=== PATIENT | male | born 1940 | race Caucasian/White ===

== ENCOUNTER 2019-12-13 08:57 | Outpatient (CLI) | payer MEDICARE, OTHER, SELFPAY ==
--- NOTE | 2019-12-13 09:05 | MM_ITS ---
WS: [id number] DIAGNOSTIC BILATERAL DIGITAL MAMMOGRAM WITH CAD LEFT breast ultrasound HISTORY: LT BREAST MASS, 79-year-old male. COMPARISON: None available. TECHNIQUE: Bilateral craniocaudad, mediolateral oblique, and mediolateral views are submitted. Spot c ompression LEFT MLO. Computer aided detection utilized. Breast composition: The breasts are almost entirely fatty. Increased soft tissue posterior to the LEF T nipple. Area of increased density posterior to the nipple measures 2.3 x 2.0 cm. LEFT breast ultrasound, limited. Hypoechoic mass with minimal peripheral increased vascularity in the LEFT subareolar corresponds to t he mammographic and palpable abnormality. Mass measures 2.6 x 1.0 x 2.4 cm. Most typical for gynecoma stia. There is an additional small lipoma in the LEFT axilla but no adenopathy. The RIGHT subareolar region is imaged for comparison and there is probably minimal gynecomastia on the RIGHT also. MM/[place] [id number] IMPRESSION: BI-RADS: 2-Benign FOLLOW UP: See Report Findings most consistent with gynecomastia.
== END 2019-12-13 08:58 | disposition home or self-care (01) ==
PROVIDERS: PCP Family Medicine; Visit Provider Nurse Practitioner
DX: N63.42 Unspecified lump in left breast, subareolar (principal); N62 Hypertrophy of breast
CPT/HCPCS: 76642; 77066

== ENCOUNTER 2019-12-21 15:33 | Outpatient (CLI) | payer MEDICARE, OTHER, SELFPAY ==
--- NOTE | 2019-12-21 15:39 | CT_ITS ---
WS: [id number] CT LUMBAR SPINE TECHNIQUE: Noncontrast CT of the lumbar spine with coronal and sagittal reformatted images. CLINICAL INFORMATION: POSTLAMINECTOMY SYNDROME COMPARISON: CT 5 23,018 and 4 29,017 DLP: 1897.[address] scans at [facility] use at least one of these dose optimization techniques: automat ed exposure control; mA and/or kV adjustment per patient size (includes targeted exams where dose is matched to clinical indication); or iterative reconstruction. FINDINGS: Moderate spondylitic changes lumbar spine. Mild lumbar curve. Disc space narrowing worse at L2-3 and L5-S1. Vacuum disc phenomenon at T12-L1, L1-L2, L2-L3, L4-L5, and L5-S1. Disc space narrowing has pro gressed at L4-L5 since the prior examination. Pedicle screw fixation L3-4. Pedicle screws appear inta ct with interconnecting rods. No evidence of hardware loosening. Alignment overall is unchanged since 2018 L1-L2: Mild disc bulging with osteophytic ridging. Mild central canal stenosis. Mild facet arthropath y. Foramen are patent. L2-L3: Mild disc bulging with osteophytic ridging. Mild to moderate central canal stenosis. Narrowing of the subarticular recess bilaterally. Moderate facet arthropathy. Mild left and no significant rig ht foraminal narrowing. L3-L4: Mild disc bulging. Spinal canal and foramen are patent. Dorsolateral bony fusion with pedicle screw fixation. L4-L5: Mild disc bulging with peripheral calcification. Right foraminal disc osteophyte protrusion wi th moderate right foraminal narrowing. Impingement on the exiting right L4 nerve root. Moderate facet arthropathy. Mild central canal stenosis. Pedicle screw fixation. L5-S1: Slight retrolisthesis L5 on S1. Mild disc bulging with osteophytic ridging. Mild right and no significant left foraminal narrowing. Narrowing of the subarticular recess bilaterally CT/CT lumbar spine wo con* [id number] IMPRESSION: 1. Moderate spondylitic changes with multilevel disc space narrowing slightly progressed since 2018 2. Pedicle screw fixation L3-4 with dorsolateral bony fusion appears stable. N o evidence of hardware loosening. 3. Mild central canal stenosis L1-2, L2-3, and L4-5 unchanged. Multilevel suba rticular recess narrowing. 4. Right foraminal disc osteophyte protrusion L4-5 has progressed from previou s. Impingement on the exiting right L4 nerve root. Recommend correlation for RI GHT L4 NERVE ROOT SYMPTOMS. 5. Otherwise multilevel mild to moderate bony foraminal narrowing is stable. 6. Moderate facet arthropathy L4-L5 and L5-S1
--- NOTE | 2019-12-21 15:40 | XR_ITS ---
WS: [id number] LUMBAR SPINE FLEXION AND EXTENSION TECHNIQUE: 3 views of the lumbar spine: Lateral neutral, flexion, and extension views. CLINICAL INFORMATION: POSTLAMINECTOMY SYNDROME COMPARISON: FINDINGS: Pedicle screw fixation L3-4 appears unchanged from previous. Trace retrolisthesis L2 on L3. No instab ility on flexion-extension. Chronic compression anterior wedging lower thoracic spine T11-T12 appear unchanged. XR/XR lumbar spine f/e only [id number] IMPRESSION: No instability on flexion-extension
== END 2019-12-21 15:34 | disposition home or self-care (01) ==
LOC: RADWPI 15:38
PROVIDERS: Family Provider Family Medicine; PCP Family Medicine; Visit Provider Anesthesiology Pain Medicine
DX: M96.1 Postlaminectomy syndrome, not elsewhere classified (principal); M47.816 Spondylosis without myelopathy or radiculopathy, lumbar region; M25.78 Osteophyte, vertebrae; M48.061 Spinal stenosis, lumbar region without neurogenic claudication
CPT/HCPCS: 72120; 72131

== ENCOUNTER → 2020-08-08 16:00 | Outpatient (BNVA) | payer MEDICARE, OTHER, SELFPAY | PROVIDERS: Family Provider Family Medicine; PCP Family Medicine; Referring Provider Internal Medicine Cardiovascular Disease; Visit Provider Internal Medicine Cardiovascular Disease | DX: I50.32 Chronic diastolic (congestive) heart failure (principal) | CPT/HCPCS: 80048; 85025 ==

== ENCOUNTER 2020-10-20 12:47 | Outpatient (CLI) | payer MEDICARE, OTHER, SELFPAY ==
--- NOTE | 2020-10-20 13:00 | CT_ITS ---
WS: [id number] CT of the lumbar spine, additional two-dimensional coronal and sagittal imaging was obtained. 1 Clinical Data: POSTLAMINECTOMY SYNDROME, NOT ELSEWHERE CLASSIFIED Comparison: CT lumbar spine, 12/21/2019. DLP: 1897.[address] scans at [facility] use at least one of these dose optimization techniques: automat ed exposure control; mA and/or kV adjustment per patient size (includes targeted exams where dose is matched to clinical indication); or iterative reconstruction. Findings: Osteoarthritic changes of the lumbar vertebral bodies remains the same. There is degenerati ve disc narrowing at all levels from T11-T12 through L5-S1 except for L3-L4. Posterior lumbar fusion at L3-L4 with bilateral pedicle screws and connecting rods remain stable. No compression fractures ar e seen. There is diffuse osteoporosis. There is a slight dextroscoliosis. The transverse processes an d SI joints are not remarkable. T12-L1: There is minimal disc osteophyte bulging with mild bilateral foraminal stenosis. L1-L2: There is minimal disc osteophyte bulging with facet joint arthritis causing canal and foramina l stenosis. L2-L3: There is disc and osteophyte bulging with facet joint arthritis causing canal and foraminal st enosis. L3-L4: There is minimal disc bulging but no canal stenosis or foraminal stenosis. L4-L5: There is minimal disc and osteophyte bulging with facet joint arthritis causing canal and fora azul stenosis. L5-S1: There is disc and osteophyte bulging with facet joint arthritis causing canal and foraminal st enosis. CT/CT lumbar spine wo con* [id number] Impression: 1. Multilevel degenerative disc disease, osteophytes and osteoporosis. 2. Posterior lumbar fusion at L3-L4 stable. 3. Multilevel disc osteophyte bulging along with facet joint arthritis causing canal and foraminal stenosis.
--- NOTE | 2020-10-20 13:00 | XR_ITS ---
WS: [id number] Lumbar spine with flexion, extension, and neutral lateral, 10/20/2020 Clinical Data: POSTLAMINECTOMY SYNDROME, NOT ELSEWHERE CLASSIFIED Comparison: Lateral lumbar spine, 12/21/2019. Findings: The posterior lumbar fusion at L3-L4 remains intact. There is a 0.3 cm retrolisthesis of L2 on L3 unc hanged. There is degenerative disc narrowing from L1-L2 through L5-S1. There is anterior osteoarthrit ic spurring and osteoporosis of all lumbar vertebral bodies. There is wedge compression at T11 and T1 2 unchanged. On flexion and extension there is no change in the subluxation and posterior lumbar fusi on remains stable. XR/XR lumbar spine f/e only [id number] Impression: 1. Stable L3-L4 posterior lumbar fusion. 2. No change in the subluxation on flexion or extension.
== END 2020-10-20 12:48 | disposition home or self-care (01) ==
LOC: RADWPI 12:52
PROVIDERS: PCP Family Medicine; Visit Provider Anesthesiology Pain Medicine
DX: M96.1 Postlaminectomy syndrome, not elsewhere classified (principal); M43.26 Fusion of spine, lumbar region
CPT/HCPCS: 72120; 72131

== ENCOUNTER 2021-01-31 15:41 | Outpatient (CLI) | payer MEDICARE, OTHER, SELFPAY ==
--- NOTE | 2021-01-31 15:50 | USCV_ITS ---
Obed Turner Age: 81 Gender: M : 1940 Exam Date: 01/31/2021 15:56 Ordering Phys: Ganesh Albarado MD Technologist: Gil Aguirre Exam Location: [facility] [place] Indication: CHF BP: 146 / 74 HR: 50 Rhythm: Sinus Technical Quality: Adequate MEASUREMENTS (Male / Female) Normal Values 2D ECHO LV Diastolic Diameter PLAX 4.3 cm 4.2 - 5.9 / 3.9 - 5.3 cm LV Systolic Diameter PLAX 3.4 cm IVS Diastolic Thickness 1.2 cm 0.6 - 1.0 / 0.6 - 0.9 cm IVS Systolic Thickness 1.5 cm LVPW Diastolic Thickness 0.9 cm 0.6 - 1.0 / 0.6 - 0.9 cm LVPW Systolic Thickness 1.3 cm LVOT Diameter 2.0 cm LV Ejection Fraction 2D Teich 26.1 % LV Ejection Fraction MOD 2C 66.7 % LV Ejection Fraction 2C AL 67.3 % LA Diameter 4.1 cm LA Width 3.8 cm LA Height 4.0 cm RA Width 3.1 cm RA Height 4.3 cm Aorta at Sinotubular Diameter 2.8 cm M-MODE MV E Point Septal Separation 1.3 cm DOPPLER AV Peak Velocity 137.0 cm/s LVOT Peak Velocity 99.0 cm/s AV Area Cont Eq vti 1.8 cm squared AV Area Cont Eq pk 2.3 cm squared MV Area PHT 5.0 cm squared Mitral E to A Ratio 0.4 MV E' Velocity 29.4 cm/s Mitral E to MV E' Ratio 6.3 Mitral E to LV E' Lateral Ratio 6.5 Mitral E to LV E' Septal Ratio 6.1 TR Peak Velocity 143.0 cm/s TR Peak Gradient 8.2 mmHg Right Atrial Pressure 3.0 mmHg Pulmonary Artery Systolic Pressu 11.2 mmHg FINDINGS Left Ventricle Normal left ventricular size, low normal systolic function and wall thickness. Left ventricular ejection fraction is estimated at 50-55 %. Septal hypokinesis. Grade I diastolic dysfunction (abnormal relaxation filling pattern), normal to mildly elevated filling pressures. Right Ventricle Normal right ventricular size and systolic function. Right ventricular systolic pressure 11.2 mmHg. Right Atrium Normal right atrial size. Left Atrium Normal left atrial size. Mitral Valve Mild mitral annular calcification. Mildly thickened mitral valve. No mitral valve stenosis. Trace mitral valve regurgitation. Aortic Valve Mildly thickened trileaflet aortic valve. No aortic valve stenosis. No aortic valve regurgitation. Tricuspid Valve Structurally normal tricuspid valve. Mild tricuspid valve regurgitation. Pulmonic Valve Structurally normal pulmonic valve. No pulmonary valve stenosis. No significant pulmonary valve regurgitation. Pericardium No pericardial effusion. Aorta Normal-sized aortic root. CONCLUSIONS 1. Normal left ventricular size, low normal systolic function and wall thickness, with no regional wall motion abnormalities. Left ventricular ejection fraction is estimated at 50-55 %. Grade I diastolic dysfunction (abnormal relaxation filling pattern), normal to mildly elevated filling pressures. 2. Normal right ventricular size and systolic function. 3. Normal pulmonary artery pressure. 4. Mild tricuspid valve regurgitation. 5. Compared to previous echocardiogram dated 08/12/2018, left ventricle systolic function may have improved somewhat. Mellissa Harrington MD (Electronically Signed) Final Date: 04 February 2021 13:50 S
== END 2021-01-31 15:42 | disposition home or self-care (01) ==
LOC: US 15:43
PROVIDERS: PCP Family Medicine; Visit Provider Family Medicine
DX: R26.89 Other abnormalities of gait and mobility (principal); I07.1 Rheumatic tricuspid insufficiency
CPT/HCPCS: 93306

== ENCOUNTER 2021-02-21 13:17 | Outpatient (CLI) | payer MEDICARE, OTHER, SELFPAY ==
--- NOTE | 2021-02-21 13:25 | CT_ITS ---
WS: [id number] CT PARANASAL SINUSES HISTORY: OTHER ALLERGIC RHINITIS TECHNIQUE: Contiguous 2.5 mm axial images obtained through the sinuses. Images are reconstructed in s agittal and coronal planes. All CT scans at [facility] use at least one of these dose optimiz ation techniques: automated exposure control; mA and/or kV adjustment per patient size (includes targ eted exams where dose is matched to clinical indication); or iterative reconstruction. DLP: 399.98 mGycm COMPARISON: None available. Frontal sinuses: Small amount mucoperiosteal thickening in the frontal sinuses, slightly greater on t he LEFT. Mucoperiosteal thickening extends into the frontal ethmoid recess. Sphenoid sinus: Small amount of mucoperiosteal thickening bilaterally. Ethmoid sinuses: Moderate mucoperiosteal thickening. Maxillary sinus: No significant mucoperiosteal thickening. No air-fluid levels. Ostiomeatal unit: Patent. No obstruction. Depth of the olfactory fossa is 5.[address]/CT sinus wo con* [id number] IMPRESSION: 1. Moderate thickening of the ethmoid mucosa and mild in the frontal and sphen oid sinuses. 2. No air-fluid levels. 3. Depth of the olfactory fossa is 5.7 mm.
== END 2021-02-21 13:18 | disposition home or self-care (01) ==
PROVIDERS: PCP Family Medicine; Visit Provider Specialist
DX: J30.89 Other allergic rhinitis (principal)
CPT/HCPCS: 70486

== ENCOUNTER → 2021-10-02 14:34 | Outpatient (BNVA) | payer MEDICARE, OTHER, SELFPAY | PROVIDERS: PCP Family Medicine; Visit Provider Nurse Practitioner Family | DX: I11.0 Hypertensive heart disease with heart failure (principal); I50.32 Chronic diastolic (congestive) heart failure; Z95.1 Presence of aortocoronary bypass graft; R00.1 Bradycardia, unspecified; Z79.82 Long term (current) use of aspirin | CPT/HCPCS: 93005; 99214 ==

== ENCOUNTER 2021-11-13 09:20 | Outpatient (CLI) | payer MEDICARE, OTHER, SELFPAY ==
--- NOTE | 2021-11-13 | XR_ITS ---
WS: [id number] Right knee, 3 views, 11/13/2021 Clinical Data: RIGHT KNEE INJURY Comparison: None. Findings: No fractures or dislocations are seen. There is medial and lateral joint compartment narrowing. The p atella is intact. The soft tissues show medial subcutaneous surgical clips in the proximal right leg. XR/XR knee RT 3V* [id number] Impression: 1. Negative for fracture. 2. Medial and lateral joint space narrowing. Kellgren-Jorge Luis Classification: grade 1 (doubtful): doubtful joint space narr owing and possible osteophytic lipping
== END 2021-11-13 09:21 | disposition home or self-care (01) ==
LOC: RADOUTREAD 11-14 09:22
PROVIDERS: PCP Family Medicine; Visit Provider Nurse Practitioner Family
DX: S89.91XA Unspecified injury of right lower leg, initial encounter (principal); X58.XXXA Exposure to other specified factors, initial encounter
CPT/HCPCS: 73562

== ENCOUNTER 2022-01-27 14:06 | Emergency (ER) | payer MEDICARE, OTHER, SELFPAY ==
[2022-01-27 14:39] VITALS: BP 138/57; PULSE 54; RESP 16; TEMP 36.3; O2SAT 97; BMI 25.7
--- NOTE | 2022-01-27 16:08 | PC.NURSE ---
PT IN TRIAGE AND STATED, IF YOU NEED ME WE'LL BE OVER HERE . VERBALIZED UNDERSTANDING TO PT. PT IS AMB WITH A STEADY GAIT ASSISTED BY CANE.
--- NOTE | 2022-01-27 17:00 | XRR_ITS ---
PROCEDURE INFORMATION: Exam: XR Lumbosacral Spine Exam date and time: 01/27/2022 6:56 PM Age: 82 years old Clinical indication: Injury or trauma; Blunt trauma (contusions or hematomas); Injury details: Fall x 3 days ago. Severe back pain and difficulty walking; Prior surgery TECHNIQUE: Imaging protocol: Radiologic exam of the lumbosacral spine. Views: 2 or 3 views. COMPARISON: CT lumbar spine wo con* [id number] 10/20/2020 1:32 PM FINDINGS: Bones/joints: Posterior fusion of L3-L4 with pedicle screws and stabilization rods. Severe disc space narrowing and degenerative endplate changes throughout the lower thoracic and lumbar spine. No acute fracture identified. Minimal retrograde subluxation of L2 on L3. The facets are intact with hypertrophic degenerative changes, greatest at L4-L5 and L5-S1. Soft tissues: Unremarkable. Gastrointestinal tract: Large amount of stool in the colon. XR/XR lumbar spine 2-3V* [id number] IMPRESSION: 1. No fracture or acute finding. 2. Constipation.
--- NOTE | 2022-01-27 17:00 | XRR_ITS ---
PROCEDURE INFORMATION: Exam: XR Bilateral Hips Exam date and time: 01/27/2022 6:50 PM Age: 82 years old Clinical indication: Injury or trauma; Fall; Blunt trauma (contusions or hematomas); Bilateral; Hip and pelvic region; Prior surgery; Surgery type: Back; Additional info: Hip pain TECHNIQUE: Imaging protocol: Radiologic exam of the bilateral hips. Views: 2 views of hips with pelvis when performed. COMPARISON: CT lumbar spine wo con* [id number] 10/20/2020 1:32 PM FINDINGS: Bones/joints: Fusion hardware in the lumbar spine with degenerative changes. The bones are intact. No fracture identified. Soft tissues: Unremarkable. XR/XR hip BI 2V wo/w pel [id number] IMPRESSION: No acute finding.
[2022-01-27 19:37] VITALS: BP 147/69; PULSE 62; RESP 16; O2SAT 97
--- NOTE | 2022-01-27 19:46 | CTR_ITS ---
PROCEDURE INFORMATION: Exam: CT Lumbar Spine Without Contrast Exam date and time: 01/27/2022 7:51 PM Age: 82 years old Clinical indication: Injury or trauma; Blunt trauma (contusions or hematomas); Injury details: Fall x 3 days. Severe back pain; Prior surgery TECHNIQUE: Imaging protocol: Computed tomography of the lumbar spine without contrast. Radiation optimization: All CT scans at this facility use at least one of these dose optimization techniques: automated exposure control; mA and/or kV adjustment per patient size (includes targeted exams where dose is matched to clinical indication); or iterative reconstruction. COMPARISON: CT lumbar spine wo con* [id number] 10/20/2020 1:32 PM RADIATION DOSE METRICS: Total DLP (mGy-cm): 593.13 FINDINGS: Bones/joints: Mild leftward lumbar curvature. Chronic mild T12 compression fracture. Minimal superior L4 compression fracture with mildly displaced oblique fracture through the right lateral L4 vertebral body with extension into the base of the right pedicle. Mild retrograde degenerative subluxations of L2 on L3 and L5 on S1. The facets are intact with degenerative changes. Posterior mechanical fusion of L3-L4 with pedicle screws and posterior stabilization rods. L1-L2: Circumferential disc bulge. Mild bilateral foraminal stenosis. Mild central canal stenosis. L2-L3: Posterior disc bulge with posterior endplate spurring. Severe disc space narrowing. No significant foraminal stenosis. Mild central canal stenosis. L3-L4: No disc bulge. No foraminal or central canal stenosis. L4-L5: Disc space narrowing with mild disc bulge. Moderate right and mild left foraminal stenosis. No central canal stenosis. L5-S1: Mild disc bulge. Moderate right and mild left foraminal stenosis. No central canal stenosis. Lungs: Fibrosis in the medial right lower lobe. Mediastinal space: Calcified granulomas in the spleen. Kidneys and ureters: Atrophic right kidney. Soft tissues: Unremarkable. CT/CT lumbar spine wo con* [id number] IMPRESSION: 1. Acute minimal compression fracture of superior L4 with mildly displaced oblique flexure through the right lateral vertebral body, extending to the base of the right pedicle. 2. Intact L3-L4 fusion. 3. Multilevel degenerative changes.
--- NOTE | 2022-01-27 20:19 | W.ED.FALL ---
HPI - Fall General: Chief Complaint: Fall Stated Complaint: Pain in hibs and back Time Seen by Provider: 01/27/22 20:02 Source: patient Mode of arrival: ambulatory Limitations: no limitations History of Present Illness: 82-year-old male states that he had fell 3 days ago states he tripped over dog fell backwards states he been having some bilateral hip and low back pain since the fall. He had previous surgery on his low back states pain is sharp in nature rates it a 5 out of 10 is worse with ambulating improved with rest he is able to ambulate states that he is having a hard time though. Denies any bowel or bladder incontinence. Associated symptoms-after fall: Denies abdominal pain, chest pain or headache(s) Review of Systems Const: Denies: fever(s), chills, body aches or change in appetite Eyes: Denies: blurry vision or eye discomfort ENMT: Denies: throat pain or dental pain Card: Denies: chest pain Resp: Denies: dyspnea GI: Denies: abdominal pain, nausea, vomiting or diarrhea : Denies: dysuria Musc: Reports: back pain and joint pain Skin/Breast: Denies: rash Neuro: Denies: headache(s) Psych: Denies: depression Alonso/Lymph: Denies: easy bruising All/Imm: Denies: urticaria PFSH ED PFSH: Medical History Anemia CHF (congestive heart failure) Depression HTN (hypertension) Pulmonary embolism Surgical History Previous back surgery X2 S/P CABG (coronary artery bypass graft) 2018 S/P knee surgery S/P shoulder surgery Bilateral Family History Other Cancer Social History Smoking and tobacco status: never smoked Physical Exam Const: COMMON NORMALS: no acute distress, patient oriented x3 and healthy appearing HENMT: COMMON NORMALS: normocephalic and atraumatic HEAD & SCALP: normocephalic and atraumatic Eye: COMMON NORMALS: Equal, round and reactive pupils present and EOMs intact bilaterally PUPIL: Yes Equal, round and reactive pupils present Neck/C-Spine: COMMON NORMALS: full ROM and supple Chest: COMMONS NORMALS: normal inspection of the chest and normal palpation of entire chest wall Resp: COMMON NORMALS: normal respiratory effort, No retractions, No use of accessory muscles and clear to auscultation bilaterally AUSCULTATION: clear to auscultation bilaterally Cardio: COMMON NORMALS: regular rate, regular rhythm and No murmurs present (Cardio) RATE: regular rate RHYTHM: regular rhythm GI: INSPECTION: Yes normal to inspection Back/Pelvis: OTHER: Tenderness to left lower lumbar spine along with some tenderness to left hip no obvious deformities full range of motion Extremity: COMMON NORMALS: normal to inspection and full ROM Neuro: COMMON NORMALS: patient oriented x3, moves all extremities and no focal motor deficits Psych: COMMON NORMALS: mental status grossly normal, Normal thought process present and cooperative THOUGHT PROCESS: Normal thought process present Skin: COMMON NORMALS: no rashes or lesions noted and no wounds GENERAL SKIN EXAM: no rashes or lesions noted Course Vital Signs: Vital signs: Vital Signs Temperature 97.3 F L 01/27/22 14:39 Pulse Rate 62 01/27/22 19:37 Respiratory Rate 16 01/27/22 19:37 Blood Pressure 147/69 01/27/22 19:37 Pulse Oximetry 97 01/27/22 19:37 MDM - Fall Medical Decision Making Patient presents here with compression fracture to L4 from a fall he has no signs of being unstable no neuro findings he has a TLSO brace at home informed him he needs to wear the brace I did speak to spine surgeon we will follow-up with him next week he is to follow-up as scheduled return if worsening. Lab Data Radiology Impressions Hip/Pelvis X-Ray 01/27/22 17:00 IMPRESSION: No acute finding. Lumbar Spine X-Ray 01/27/22 17:00 IMPRESSION: 1. No fracture or acute finding. 2. Constipation. Lumbar Spine CT 01/27/22 19:46 IMPRESSION: 1. Acute minimal compression fracture of superior L4 with mildly displaced oblique flexure through the right lateral vertebral body, extending to the base of the right pedicle. 2. Intact L3-L4 fusion. 3. Multilevel degenerative changes. Discharge Plan Discharge Patient Disposition: Home Clinical Impression: Closed compression fracture of L4 vertebra Qualifiers: Encounter type: initial encounter Qualified Code(s): S32.040A - Wedge compression fracture of fourth lumbar vertebra, initial encounter for closed fracture Condition: Stable Prescriptions: New hydrocodone-acetaminophen 5-325 mg tablet 1 tab PO Q6H PRN (Reason: pain) Qty: 14 0RF No Action atorvastatin 40 mg tablet 40 mg PO DAILY oxycodone 10 mg tablet 10 mg PO DAILY PRN finasteride 5 mg tablet 5 mg PO DAILY omeprazole 20 mg capsule,delayed release(DR/EC) 20 mg PO DAILY aspirin [Adult Low Dose Aspirin] 81 mg tablet,delayed release (DR/EC) 81 mg PO DAILY melatonin 3 mg capsule 3 mg PO .HS warfarin 5 mg tablet 5 mg PO DIRECTED alprazolam 1 mg tablet 1 mg PO DAILY [place] Plus Cold (PE) 2-7.8-325 mg tablet, effervescent PO amlodipine 5 mg tablet 5 mg PO DAILY hydralazine 25 mg tablet 100 mg PO DIRECTED Rx Instructions: 50mg in AM, 25mg noon, and 25mg PM chlorthalidone 25 mg tablet 12.5 mg PO DAILY Qty: 30 0RF carvedilol 3.125 mg tablet 3.125 mg PO BID Qty: 180 2RF Discharge Orders: Discharge ED (Routine); Ordered 01/27/22 Ordered By: Candie Gooden Referrals: Ricky Venegas DO [Physician] - 1-3 days Ganesh Albarado MD [Primary Care Provider] - Discharge Diet: Advance as tolerated Discharge Activity: Resume usual activity Patient Instructions: Thoracolumbar Fracture (ED), Opioid Safety Coding Level of Care Code ED Design Assembler for Chg Fwd Exam Comprehensive
[2022-01-27 20:49] VITALS: BP 137/78; PULSE 67; RESP 16; O2SAT 97
--- NOTE | 2022-01-28 11:16 | DCPLANNER ---
Addendum entered by Destiny Block 01/31/22 14:40: Patient had a follow up appointment scheduled for 02.05.22 with ortho - appointment was cancelled Original Note: manager laboratory had message to schedule a follow up appointment for patient with ortho. manager laboratory sent patients information to the front office staff at ortho. Patients information will be printed and reviewed. Clinic will call patient with appointment information.
== END 2022-01-27 20:51 | disposition home or self-care (01) ==
PROVIDERS: Emergency Provider Emergency Medicine; PCP Family Medicine
DX: S32.040A Wedge compression fracture of fourth lumbar vertebra, initial encounter for closed fracture (principal); Z79.01 Long term (current) use of anticoagulants; Z79.82 Long term (current) use of aspirin; Z79.891 Long term (current) use of opiate analgesic; I11.0 Hypertensive heart disease with heart failure; I50.9 Heart failure, unspecified; Z95.1 Presence of aortocoronary bypass graft; W01.0XXA Fall on same level from slipping, tripping and stumbling without subsequent striking against object, initial encounter
CPT/HCPCS: 72100; 72131; 73521; 73523; 99284

== ENCOUNTER → 2022-02-05 13:54 | Outpatient (BNVA) | payer MEDICARE, OTHER, SELFPAY | PROVIDERS: PCP Family Medicine; Visit Provider Orthopaedic Surgery | DX: S32.010A Wedge compression fracture of first lumbar vertebra, initial encounter for closed fracture (principal); W01.0XXA Fall on same level from slipping, tripping and stumbling without subsequent striking against object, initial encounter; Z98.1 Arthrodesis status | CPT/HCPCS: 99204 ==

== ENCOUNTER → 2022-02-26 14:39 | Outpatient (BNVA) | payer MEDICARE, OTHER, SELFPAY | PROVIDERS: PCP Family Medicine; Visit Provider Orthopaedic Surgery | DX: S32.010A Wedge compression fracture of first lumbar vertebra, initial encounter for closed fracture (principal); M48.062 Spinal stenosis, lumbar region with neurogenic claudication; Z98.1 Arthrodesis status | CPT/HCPCS: 72100; 99213; 99214 ==

== ENCOUNTER → 2022-03-19 14:30 | Outpatient (BNVA) | payer MEDICARE, OTHER, SELFPAY | PROVIDERS: PCP Family Medicine; Visit Provider Orthopaedic Surgery | DX: S32.039A Unspecified fracture of third lumbar vertebra, initial encounter for closed fracture (principal); S32.049A Unspecified fracture of fourth lumbar vertebra, initial encounter for closed fracture; W19.XXXA Unspecified fall, initial encounter; Z98.1 Arthrodesis status | CPT/HCPCS: 72100; 99214 ==

== ENCOUNTER 2022-03-29 11:34 | Inpatient (IN) | payer MEDICARE, OTHER, SELFPAY ==
[2022-03-25 13:53] VITALS: BMI 23.4
[2022-03-25 14:21] LABS: Basophils % 0.4 %; Eosinophils # 0.1 10^3/uL (0.0-0.8); Eosinophils % 1.9 %; Hematocrit 40.8 % (42.0-52.0); Hemoglobin 13.7 g/dL (11.7-16.6); Lymphocytes % 20.9 %; Mean Corpuscular HGB Conc 33.6 g/dL (30.0-36.0); Mean Corpuscular Hemoglobin 30.2 pg (28.0-34.0); Mean Corpuscular Volume 90.1 fl (80-94); Mean Platelet Volume 8.3 fL (7.4-10.4); Monocytes # 0.6 10^3/uL (0.2-0.9); Monocytes % 13.5 %; Neutrophils # 2.98 10^3/uL (1.8-7.7); Neutrophils % 63.1 %; Nucleated Red Blood Cells % 0 %; Platelet Count 234 10^3/cmm (130-400); Red Blood Count 4.53 10^6/uL (4.1-5.3); Red Cell Distribution Width 13.7 % (12.1-15.1); White Blood Count 4.7 10^3/uL (4.0-10.0)
--- NOTE | 2022-03-25 14:26 | P.ANESASSM_ITS ---
Pre-Anesthetic Assessment Height/Weight: Height 1.8 m Weight 76.204 kg Operation Date: 03/29/22 10:00 Proposed Procedures p Hardware Removal Lumbar L3/4 L3/S1 FUSION AND DECOMPRESSION L4/L5 L5/S1(Left) - Ricky H Rubi, DO s Lumbar Fusion L3-S1 [id number]/M48 .062/S32.010A(Left) - Ricky H Rubi, DO s Lumbar Spine Decompression(Left) - Ricky H Rubi, DO Familial anesthetic complications: None Social No alcohol and No tobacco former smoker Exam alert, oriented x 3, clear to auscultation bilaterally and regular rate & rhythm Airway Mallampati: Class III Dentition: false Pulmonary None reported CV/HEM Coronary Artery Disease (CABG), Congestive Heart Failure and Hypertension Denies any recent chest pains 01/31/21 Procedure(s): CV. echo complete* [id number] ?CONCLUSIONS ?1. Normal left ventricular size, low normal systolic function ?and wall thickness, with no regional wall motion abnormalities. ?Left ventricular ejection fraction is estimated at 50-55 %. ?Grade I diastolic dysfunction (abnormal relaxation filling ?pattern), normal to mildly elevated filling pressures. ?2. Normal right ventricular size and systolic function. ?3. Normal pulmonary artery pressure. ?4. Mild tricuspid valve regurgitation. ?5. Compared to previous echocardiogram dated 08/12/2018, left ?ventricle systolic function may have improved somewhat. 08/12/18 Echo Normal LV size with diminished ejection fraction of around 46%. ?Wall motion abnormalities as mentioned above ?Thickened aortic and mitral valves. ?Mild mitral valve regurgitation. ?Trace tricuspid valve regurgitation. ?Mild pulmonary hypertension with? an estimated pulmonary artery ?peak systolic pressure of 41 mmHg. ?There is no pericardial effusion. ?There are no intracardiac masses. ?Compared to the previous study from 10/28/2016, there is ?significant drop in the LV ejection fraction Chronic Renal Insufficiency Hepatic None reported GI Gastroesophageal Reflux Disease Metabolic None reported Musc/skel Lower Back Pain Neuropsych Transient Ischemic Attack (> 1 year ago) Anesthetic Plan ASA status: 4 Anesthesia: General Risk of > 500 ml blood loss (7ml/kg in children): No Medications/Allergies Home Medications Medication Instructions Recorded Confirmed Last Taken Type aspirin 81 mg tablet,delayed 81 mg PO DAILY 07/01/19 03/25/22 Unknown History release (Adult Low Dose Aspirin) atorvastatin 40 mg tablet 40 mg PO DAILY 07/01/19 03/25/22 Unknown History finasteride 5 mg tablet 5 mg PO DAILY 07/01/19 03/25/22 Unknown History melatonin 3 mg capsule 3 mg PO .HS 07/01/19 03/25/22 Unknown History omeprazole 20 mg capsule,delayed 20 mg PO DAILY 07/01/19 03/25/22 Unknown History release oxycodone 10 mg tablet 10 mg PO DAILY PRN Pain 07/01/19 03/25/22 Unknown History chlorthalidone 25 mg tablet 12.5 mg PO DAILY #30 tabs 04/20/21 03/25/22 Unknown Rx amlodipine 5 mg tablet 5 mg PO DAILY 07/23/21 03/25/22 Unknown History hydralazine 25 mg tablet 100 mg PO DIRECTED 07/23/21 03/25/22 Unknown History carvedilol 3.125 mg tablet 3.125 mg PO BID #180 tabs 12/10/21 03/25/22 Unknown Rx Lumbar Corset Brace #1 ea 02/05/22 03/19/22 Unknown Rx DME: Bed rail #1 ea 02/13/22 03/19/22 Unknown Rx DME: Wedge Pillow #1 ea 02/13/22 03/19/22 Unknown Rx Vitamin D3 50 mg PO DAILY 03/25/22 03/25/22 Unknown History alprazolam 1 mg tablet 1 mg PO DAILY 03/25/22 03/25/22 Unknown History apixaban 2.5 mg tablet (Eliquis) 2.5 mg PO BID 03/25/22 03/25/22 Unknown History furosemide 40 mg tablet 40 mg PO DAILY PRN Edema 03/25/22 03/25/22 Unknown History Allergies Allergy/AdvReac Type Severity Reaction Status Date / Time horse serum Allergy Severe Unknown Uncoded 03/19/22 14:19 [facility] Anesthesia Medical History Anemia CHF (congestive heart failure) Depression HTN (hypertension) Pulmonary embolism Surgical History Previous back surgery X2 S/P CABG (coronary artery bypass graft) 07/21/2018 S/P knee surgery S/P shoulder surgery Bilateral Family History Other Cancer Social History Smoking and tobacco status: former smoker Data Anesthesia : 03/25/22 14:12 03/25/22 14:12 Short CBC 03/25/22 Range/Units 14:12 WBC 4.7 (4.0-10.0) 10^3/uL Hgb 13.7 (11.7-16.6) g/dL Hct 40.8 L (42.0-52.0) % MCV 90.1 (80-94) fl Plt Count 234 (130-400) 10^3/cmm Neut % (Auto) 63.1 % Neut # (Auto) 2.98 (1.8-7.7) 10^3/uL Cardiac Studies: Echocardiogram 01/31/21 Cardiac Event Monitor 03/07/20
[2022-03-25 14:42] LABS: Anion Gap 11.3 (5-19); Blood Urea Nitrogen 32 mg/dL (8-23); Calcium 9.9 mg/dL (8.5-10.5); Carbon Dioxide 30 mmol/L (22-29); Chloride 92 mmol/L (98-107); Glucose 98 mg/dL (65-115); Osmolality Calculated 275 mOsm/kg (285-295); Potassium 4.3 mmol/L (3.5-5.1); Sodium 129 mmol/L (136-145)
--- NOTE | 2022-03-25 18:31 | ECG_ITS ---
[facility] Test Date: 2022-03-25 Pat Name: Obed Turner Department: Room: Gender: Male [employer]: : 1940 Requested By: Ricky Hale Order Number: [id number] Shane MD: Segundo Clemente M.D. Measurements Intervals [place] Rate: 66 P: 59 IN: 180 QRS: 48 QRSD: 86 T: 45 QT: 394 QTc: 414 Interpretive Statements SINUS RHYTHM NONSPECIFIC ST & T-WAVE ABNORMALITY Compared to ECG 10/22/2018 18:33:22 Atrial abnormality no longer present Possible ischemia no longer present T-wave abnormality still present Electronically Signed On 03-25-2022 21:24:27 CDT by Segundo Clemente M.D. [email or web address]
[2022-03-29] VITALS (20 sets, daily range): BP systolic 118–179; BP diastolic 61–96; PULSE 63–85; RESP 12–24; TEMP 36.2–36.8; O2SAT 93–99; BMI 21.7
--- NOTE | 2022-03-29 | XR_ITS ---
WS: [id number] Lumbar spine, C-arm fluoroscopy, 03/29/2022 Clinical Data: Lumbar fusion L3 to pelvis Comparison: Lumbar spine, 03/19/2022 Findings: Dr. Venegas inserted bilateral pedicle screws which extend from L3 to S1 with connecting rods. There ar e oblique screws fusing the SI joints. There is an L5 laminectomy. XR/XR lumbar spine 1V 33475 Impression: Posterior lumbosacral fusion.
--- NOTE | 2022-03-29 | SCC_ITS ---
Procedure done: 1.? L3 - pelvis posterolateral fusion 2. L3 to S1 instrumentation 3. lumbo pelvic instrumentation 4. Open SI joint fusion (41557) Right 5. Open SI joint fusion (69790) Left 6. L4/5 laminectomy with partial facetectomies 7. L5/S1 laminectomy with partial facetectomies 8. computer navigation/ stereotactic for spine 9. Bone marrow aspirate from right iliac crest 10. use of autograft 11. use of allograft 12. Removal of deep spine hardware 2 seconds of fluoroscopic guidance, for a cumulative dose of 21.2 mGy, was provided to Dr. Venegas by the radiology department. C-arm images of the lumbar spine were saved for the patient's permanent record. MIMI
[2022-03-29] MEDS: sodium chloride 0.9% 1,000 ML 30 ML IV (06:22)
--- NOTE | 2022-03-29 06:45 | P.ANESUD_ITS ---
Pre-Anesthetic Update Pre-Anesthetic Assessment: Date of Surgery/Procedure: 03/29/22 Preop Maryse gnosis: Compression fracture lumbar spine with lumbar stenosis Proposed Procedure: Operation Date: 03/29/22 07:00 Proposed Procedures p Hardware Removal Lumbar L3/4 L3/S1 FUSION AND DECOMPRESSION L4/L5 L5/S1(Left) - Ricky H Rubi, DO s Lumbar Fusion L3-S1 [id number]/09473/M48.062/S32.010A (Left) - Ricky H Rubi, DO s Lumbar Spine Decompression(Left) - Ricky H Rubi, DO Any changes to Pre-Anesthetic Assessment?: No Last Intake: Intake Last Liquid Date 03/28/22 Last Liquid Time 21:00 Last Solid Date 03/28/22 Last Solid Time 21:00 Vitals: Temperature 97.2 F L 03/29/22 06:13 Temperature Source Temporal Artery S can 03/29/22 06:13 Pulse Rate 71 03/29/22 06:13 Respiratory Rate 18 03/29/22 06:13 Blood Pressure 170/79 03/29/22 06:13 Blood Pressure Vida n 109 03/29/22 06:13 Pulse Oximetry 97 03/29/22 06:13 Oxygen Delivery Me thod 03/29/22 06:15 Exam: Pre-Anes Outpt Exam: alert, oriented x 3, clear to auscultation bilaterally and regular rate & rhythm Cardiac Studies: Echocardiogram 01/31/21 Cardiac Event Monitor 03/07/20
--- NOTE | 2022-03-29 06:53 | W.PM.OPSUD ---
Surgery/Procedure H&P Update DATE OF PROCEDURE: March 29, 2022 DATE H&P PERFORMED: 03/19/22 H&P UPDATE INFORMATION: I have reviewed H&P completed within last 30 days, I have examined patient prior to procedure and No changes to prior documentation PREOP DIAGNOSIS: Compression fracture lumbar spine with lumbar stenosis PLANNED PROCEDURE: Operation Date: 03/29/22 07:00 Proposed Procedures p Hardware Removal Lumbar L3/4 L3/S1 FUSION AND DECOMPRESSION L4/L5 L5/S1(Left) - DO ralf Talley Lumbar Fusion L3-S1 [id number]/16196/34835/M48.062/S32.010A(Left) - DO ralf Talley Lumbar Spine Decompression(Left) - Ricky Venegas DO
[2022-03-29] MEDS: ceFAZolin 2,000 MG in sodium chloride 0.9% (plus) 50 ML 100 MG IV ×3 (07:00→22:22)
--- NOTE | 2022-03-29 07:32 | SUR.OPER ---
Called and notified her of surgical start.
[2022-03-29 09:36] LABS: Blood Urea Nitrogen 19 mg/dL (8-23); Calcium 8.5 mg/dL (8.5-10.5); Carbon Dioxide 25 mmol/L (22-29); Chloride 92 mmol/L (98-107); Glucose 110 mg/dL (65-115); Osmolality Calculated 261 mOsm/kg (285-295); Sodium 124 mmol/L (136-145)
[2022-03-29] MEDS: heparin, porcine 1,000 unit/mL INJ 10 mL 10000 UNIT IRRIGATION (09:36)
[2022-03-29] MEDS: vancomycin 1,000 MG SDV 1000 MG XX (09:37)
--- NOTE | 2022-03-29 10:54 | P.OP_ITS ---
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 L3 - pelvis posterolateral fusion 2. L3 to S1 instrumentation 3. lumbo pelvic instrumentation 4. Open SI joint fusion (67674) Right 5. Open SI joint fusion (95437) Left 6. L4/5 laminectomy with partial facetectomies 7. L5/S1 laminectomy with partial facetectomies 8. computer navigation/ stereotactic for spine 9. Bone marrow aspirate from right iliac crest 10. use of autograft 11. use of allograft 12. Removal of deep spine hardware Procedure: 1.? L3 - pelvis posterolateral fusion 2. L3 to S1 instrumentation 3. lumbo pelvic instrumentation 4. Open SI joint fusion (59082) Right 5. Open SI joint fusion (41656) Left 6. L4/5 laminectomy with partial facetectomies 7. L5/S1 laminectomy with partial facetectomies 8. computer navigation/ stereotactic for spine 9. Bone marrow aspirate from right iliac crest 10. use of autograft 11. use of allograft 12. Removal of deep spine hardware Patient is brought to the operative suite.? After undergoing anesthesia, the patient had neuro monitoring attached.? Patient was then placed in the prone position on the Arnoldo table.? All areas of impingement were well-padded.? Patient was then prepped and draped in the normal sterile fashion.? Skin incision was then made over the L3 to S1.? Subperiosteal dissection was made out to the transverse processes of L3 down to L5.? And also exposing the sacral ala over the S1 1 L5 facet.? The SI joints were also exposed.? The hardware that is previously at L3-4 was identified. This hardware was moved to the caps removed followed by the cross-link followed by the rods followed by the screws. Screws were replaced at L3 and L4 on the left with 7.5 55 mm screws. And the right L3 screw was replaced with a 7.5 55 mm screw. Next attention was brought to obtaining the bone marrow aspirate.? The [employer]acts bone marrow aspirate kit was used to aspirate bone marrow aspirate.? This was done by using the sharp probe to open up the bone.? Aspiration was performed and then the blunt probe was then used to dissect down to through the bone tunnel.? An aspirating well drawn back a millimeter approximately 20 cc of bone marrow aspirate was used.? Admixed with the allograft and autograft bone that will be used. Is brought to placing the fiducial for the computer navigation.? The computer navigation fiducial was hooked up to 2 pins were placed into the right iliac crest.? These 2 pins were later moved at the end of the case.? The C-arm was brought in and spun around the patient and then the information was linked to the computer in order to facilitate placing the screws. Next attention was brought to placing the sacral ala iliac screws on the right.? These were done bilaterally.? The right side was done first.? The gearshift was placed using computer navigation.? And then the pedicle feeler was inserted in order to facilitate that there were no breaches.? This was also placed in order to facilitate marking where the screw was going to go.? Because Next the attention was brought to placing the open sacral iliac joint fusion.? The exposure was done over the sacroiliac joint.? Using the gearshift probe the SI joint was identified and a K wire was placed into the sacroiliac joint.? Tissue protectors were passed around the sacroiliac joint pain and then a drill was placed into the sacroiliac joint going in the parallel fashion into the SI joint.? Next a allograft cage was placed into the SI joint.? This was done superior to the plan.? The same process was repeated inferior to the pin.? Next attention was placed to placing the right sacral ala iliac screw using computer navigation this is a 90 mm 9.5 mm Thayer screw. Next attention was brought to the left side.he gearshift was placed using computer navigation.? And then the pedicle feeler was inserted in order to facilitate that there were no breaches.? This was also placed in order to facilitate marking where the screw was going to go.? Because Next the attention was brought to placing the open sacral iliac joint fusion.? The exposure was done over the sacroiliac joint.? Using the gearshift probe the SI joint was identified and a K wire was placed into the sacroiliac joint.? Tissue protectors were passed around the sacroiliac joint pain and then a drill was placed into the sacroiliac joint going in the parallel fashion into the SI joint.? Next a allograft cage was placed into the SI joint.? This was done superior to the p sandeep.? The same process was repeated inferior to the pin.? Next attention was placed to placing the right sacral ala iliac screw using computer navigation this is a 90 mm 9.5 mm Thayer screw. A total of 4 cages were placed into the bilateral sacral iliac joints. Next attention was brought to placing the pedicle screws.? The technique for placing the pedicle screws was to use a drill followed by the gearshift probe.? Followed by the ball probe to feel the superior inferior medial lateral juares of the pedicles.? Then placement of the screws.? Was done at each pedicle.? Screws were placed at S1 bilaterally, L5 bilaterally. Next attention was brought to performing the laminectomy ofL4.? This was done using the high-speed bur Kerrisons and curettes.? Once the lamina was removed and then attention was brought to performing a partial facetectomy on the contralateral side.? This was done again using the high-speed bur curettes and Kerrisons.? The ligamentum flavum was taken down bilaterally from L4 to L5.? Attention was then brought to the facet on the ipsilateral side.? The facet was taken down.? The L5 nerve was decompressed as it passed around the L5 pedicle bilateral.? The laminectomy was done for purposes of decompressing the nerve ? The L4 nerve was identified as it traversed through the L4/5 foramen bilateral. Next attention was brought to performing the laminectomy ofL5.? This was done using the high-speed bur Kerrisons and curettes.? Once the lamina was removed and then attention was brought to performing a partial facetectomy on the contralateral side.? This was done again using the high-speed bur curettes and Kerrisons.? The ligamentum flavum was taken down bilaterally from L5 to S1.? Attention was then brought to the facet on the ipsilateral side.? The facet was taken down.? The S1 nerve was decompressed as it passed around the S1 pedicle bilateral.? The laminectomy was done for purposes of decompressing the nerve ? The L5 nerve was identified as it traversed through the L5 foramen bilateral. Attention was then brought to attaching the rods to the screws placed in the L3 down to S1 bilaterally and attaching onto the sacral ala iliac screw bilaterall (pelvis).? Caps were torqued into position. Locking the construct in place. Wound was copiously irrigated and then attention was brought to decorticating the facets and transverse processes laterally.? Bone that was taken down from the lamina was used along with osteoamp fibers and sponges were packed into the lateral gutters along the facet joints.? This was done bilaterally. Wound was then closed in a layered fashion starting with the thoracolumbar fascia.? 0-vicryl was used the sub cutaneous tissue was closed with 2-0 vicryl and skin with 4-0 monocryl.? Glue was then used to seal the skin and a steril dressing was applied.? Patient was then placed in the supine position. The endotracheal tube was removed and patient was transferred to the PACU in stable condition.
--- NOTE | 2022-03-29 11:07 | PC.NURSE ---
REPORT GIVEN VIA TELPHONE AT 1105 TO GURU ON SECOND FLOOR. SHE STATED THAT ROOM WAS NOT CLEAN AND WOULD CALL WHEN IT WAS CLEAN.
[2022-03-29] MEDS: fentaNYL 50 mcg/mL INJ 2mL IVP (11:17)
--- NOTE | 2022-03-29 11:36 | P.HP_ITS ---
Providers/Chief Complaint Admitting Physician: Ricky Venegas DO Primary Care Provider: Ganesh Albarado MD Chief Complaint: L3/4 SREW REMOVAL L3-S1 FUSION AND DECOMPRESSION L History of Present Illness Obed Turner Sr is a 82 year old male Medications/Allergies Home Medications Medication Instructions Recorded Confirmed Last Taken Type aspirin 81 mg tablet,delayed 81 mg PO DAILY 07/01/19 03/29/22 03/22/22 History release (Adult Low Dose Aspirin) atorvastatin 40 mg tablet 40 mg PO DAILY 07/01/19 03/25/22 03/29/22 History finasteride 5 mg tablet 5 mg PO DAILY 07/01/19 03/25/22 03/29/22 History melatonin 3 mg capsule 3 mg PO .HS 07/01/19 03/29/22 03/29/22 History omeprazole 20 mg capsule,delayed 20 mg PO DAILY 07/01/19 03/25/22 03/29/22 History release oxycodone 10 mg tablet 10 mg PO DAILY PRN Pain 07/01/19 03/29/22 03/29/22 History chlorthalidone 25 mg tablet 12.5 mg PO DAILY #30 tabs 04/20/21 03/25/22 03/29/22 Rx amlodipine 5 mg tablet 5 mg PO DAILY 07/23/21 03/25/22 03/29/22 History hydralazine 25 mg tablet 100 mg PO DIRECTED 07/23/21 03/25/22 03/29/22 Hist ory carvedilol 3.125 mg tablet 3.125 mg PO BID #180 tabs 12/10/21 03/25/22 03/29/22 Rx Lumbar Corset Brace #1 ea 02/05/22 03/19/22 Unknown Rx DME: Bed rail #1 ea 02/13/22 03/19/22 Unknown Rx DME: Wedge Pillow #1 ea 02/13/22 03/19/22 Unknown Rx Vitamin D3 50 mg PO DAILY 03/25/22 03/29/22 03/29/22 History alprazolam 1 mg tablet 1 mg PO DAILY 03/25/22 03/25/22 03/29/22 History apixaban 2.5 mg tablet (Eliquis) 2.5 mg PO BID 03/25/22 03/29/22 03/22/22 History furosemide 40 mg tablet 40 mg PO DAILY PRN Edema 03/25/22 03/29/22 03/22/22 History Allergies Allergy/AdvReac Type Severity Reaction Status Date / Time horse serum Allergy Severe Unknown Uncoded 03/19/22 14:19 PFSH Acute PFSH: Medical History Anemia CHF (congestive heart failure) Depression HTN (hypertension) Pulmonary embolism Surgical History Previous back surgery X2 S/P CABG (coronary artery bypass graft) 07/21/2018 S/P knee surgery S/P shoulder surgery Bilateral Family History Other Cancer Social History Smoking and tobacco status: former smoker Vitals/I&O/Wt Last Vital Signs Temp 98.0 F 03/29/22 10:38 Pulse 64 03/29/22 11:20 Resp 14 03/29/22 11:20 BP 136/79 03/29/22 11:20 Pulse Ox 96 03/29/22 11:20 O2 Del Method 03/29/22 11:20 03/28/22 03/29/22 03/29/22 22:59 06:59 14:59 Intake Total 1060 / 1060 Output Total 800 / 800 Balance 260 / 260 Physical Exam Urinary Catheter Management: Mccarthy: Cath Placed During This Visit: yes Urinary Catheter Date of Insertion: 03/29/22 Urinary Catheter Time of Insertion: 07:05 Data : 03/25/22 14:12 03/29/22 08:52 Coding Level of Care Code Acute Internet Specialist for Milena Colvin
--- NOTE | 2022-03-29 12:08 | P.CONIM_ITS ---
Providers/Reason For Consult Consulting Physician/Specialty*: Ramin Beltran MD, hospitalist Reason for Consult*: Medical management, hyponatremia Requesting Physician: Ricky Venegas DO Attending Physician: Ricky Venegas DO Primary Care Provider: Ganesh Albarado MD History of Present Illness History of Present Illness Obed Turner Sr is a 82 year old male who underwent an L3 to pelvis posterior lateral fusion with instrumentation and removal of deep spine hardware earlier today. I am being consulted for medical management secondary to his multiple comorbidities, as well as hyponatremia that was noted on this morning's labs. Patient is directly postoperative, hard of hearing, and can answer few basic questions but cannot give a complete review of systems at this time. He reports he has some back pain. He denies any active chest discomfort or shortness of breath. In reviewing his case with the surgeon who I spoke with directly, his surgery was without complication. He received about a liter of fluids intraoperatively, and had 350 cc of blood loss. Review of Systems General: Reports: ROS unobtainable due to mental status (Operative, conversive but unable to complete complete review of systems cur) Medications/Allergies Home Medications Medication Instructions Recorded Confirmed Last Taken Type aspirin 81 mg tablet,delayed 81 mg PO DAILY 07/01/19 03/29/22 03/22/22 History release (Adult Low Dose Aspirin) atorvastatin 40 mg tablet 40 mg PO DAILY 07/01/19 03/25/22 03/29/22 History finasteride 5 mg tablet 5 mg PO DAILY 07/01/19 03/25/22 03/29/22 History melatonin 3 mg capsule 3 mg PO .HS 07/01/19 03/29/22 03/29/22 History omeprazole 20 mg capsule,delayed 20 mg PO DAILY 07/01/19 03/25/22 03/29/22 History release oxycodone 10 mg tablet 10 mg PO DAILY PRN Pain 07/01/19 03/29/22 03/29/22 History chlorthalidone 25 mg tablet 12.5 mg PO DAILY #30 tabs 04/20/21 03/25/22 03/29/22 Rx amlodipine 5 mg tablet 5 mg PO DAILY 07/23/21 03/25/22 03/29/22 History hydralazine 25 mg tablet 100 mg PO DIRECTED 07/23/21 03/25/22 03/29/22 H istory carvedilol 3.125 mg tablet 3.125 mg PO BID #180 tabs 12/10/21 03/25/22 03/29/22 Rx Lumbar Corset Brace #1 ea 02/05/22 03/19/22 Unknown Rx DME: Bed rail #1 ea 02/13/22 03/19/22 Unknown Rx DME: Wedge Pillow #1 ea 02/13/22 03/19/22 Unknown Rx Vitamin D3 50 mg PO DAILY 03/25/22 03/29/22 03/29/22 History alprazolam 1 mg tablet 1 mg PO DAILY 03/25/22 03/25/22 03/29/22 History apixaban 2.5 mg tablet (Eliquis) 2.5 mg PO BID 03/25/22 03/29/22 03/22/22 History furosemide 40 mg tablet 40 mg PO DAILY PRN Edema 03/25/22 03/29/22 03/22/22 History Allergies Allergy/AdvReac Type Severity Reaction Status Date / Time horse serum Allergy Severe Unknown Uncoded 03/19/22 14:19 PFSH Acute PFSH: Medical History (Updated 03/29/22 @ 12:19 by Ramin Beltran MD) Anemia Anxiety BPH (benign prostatic hyperplasia) CHF (congestive heart failure) Chronic kidney disease Coronary artery disease Depression GERD (gastroesophageal reflux disease) HTN (hypertension) Hyperlipidemia Pulmonary embolism Surgical History Previous back surgery X2 S/P CABG (coronary artery bypass graft) 07/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 Pupils equally round. Oropharynx clear. Neck is supple no lymphadenopathy or thyromegaly Cardiovascular regular rate and rhythm, no murmur Lungs clear no wheezing or crackles Abdomen is soft, bowel sounds noted, binder in place exam demonstrates Mccarthy Extremities no cyanosis clubbing or edema. Patient has no evidence of foot drop. Neuro no obvious focal deficits Skin no rash Urinary Catheter Management: Mccarthy: Cath Placed During This Visit: yes Urinary Catheter Date of Insertion: 03/29/22 Urinary Catheter Time of Insertion: 07:05 Data : 03/25/22 14:12 03/29/22 08:52 Micro: Previous echocardiogram January 2021 demonstrated preserved EF at 55% and 1/4 diastolic dysfunction. EKG demonstrates normal sinus rhythm, normal axis, nonspecific ST-T wave changes A&P Assessment and plan (1) Lumbar stenosis with neurogenic claudication: Patient is directly postoperative fusion, L3 to pelvis. Estimated blood loss 350 cc. Appears stable currently. Postoperative management per orthopedic spine surgery. (2) Hyponatremia: Hyponatremia was noted on his day of operation labs as well as his preoperative labs. He was given fluid during surgery, isotonic. No further fluid is needed currently. After infusion of potassium, recheck potassium and sodium Check TSH Discontinue chlorthalidone, this is a thiazide diuretic If potassium is still significantly low we will give Lasix x1 and reassess tomorrow morning. At this point I do not think osmolalities, urine lites will be that useful. (3) Hypokalemia: Supplement with 40 IV Recheck following supplementation Check magnesium level (4) Pulmonary embolism: Surgeon reports Eliquis can be started tomorrow. Continue SCD's Qualifiers: Pulmonary embolism type: unspecified Chronicity: chronic Acute cor pulmonale presence: without acute cor pulmonale Qualified Code(s): I27.82 - Chronic pulmonary embolism (5) CHF (congestive heart failure): No evidence of acute heart failure currently. Continue to monitor. Hold IV fluids. Continuous fluids are not needed currently. Qualifiers: Heart failure type: diastolic Heart failure chronicity: chronic Qualified Code(s): I50.32 - Chronic diastolic (congestive) heart failure Plan Multiple other medical problems as outlined in past medical history Eliquis will suffice for DVT prophylaxis tomorrow, SCDs are adequate today. Consult Attestations Medical Necessity Statement: As per primary Coding Level of Care Code Acute Electrician Manager for g Fwd Diagnoses Lumbar stenosis with neurogenic claudication M48.062 Hyponatremia E87.1 Hypokalemia E87.6 Pulmonary embolism I27.82 Pulmonary embolism type: unspecified Chronicity: chronic Acute cor pulmonale presence: without acute cor pulmonale CHF (congestive heart failure) I50.32 Heart failure type: diastolic Heart failure chronicity: chronic
--- NOTE | 2022-03-29 12:18 | XR_ITS ---
WS: [id number] Portable AP semiupright chest, 03/29/2022 Clinical Data: hyponatremia Comparison: Portable chest, 10/22/2018. Findings: No nodules, masses or effusions are seen. The heart is normal. The pulmonary vascularity is not increased. No pneumonia or pneumothorax is seen. Midline sternotomy sutures are present. The aor tic arch shows mild calcification and tortuosity. The diaphragms are flattened. XR/XR chest 1V portable [id number] Impression: Atherosclerosis and hyperinflation.
[2022-03-29] MEDS: lidocaine 1% 5 ML in potassium chloride premix 100 ML 25 ML IV (12:51)
--- NOTE | 2022-03-29 13:01 | ANE.PACU2 ---
Inpatient post-anesthesia follow up: Airway intact: Yes Vital signs: Temperature 97.7 F Pulse Rate 68 Respiratory Rate 17 Blood Pressure 161/75 Pulse Oximetry 95 Oxygen Delivery Me thod Room Air Oxygen Flow Rate Fraction of Inspir ed Oxygen Hydration adequate: Yes Nausea and vomiting: No Pain level: 1 Mental status: Baseline
[2022-03-29 13:44] LABS: Thyroid Stimulating Hormone 5.54 uIU/mL (0.27-4.20)
[2022-03-29 13:50] LABS: Magnesium 1.8 mg/dL (1.7-2.3)
[2022-03-29] MEDS: oxyCODONE 5 mg IR Tab/Cap 10 MG PO ×2 (14:09→20:43)
[2022-03-29] MEDS: docusate sodium 100 mg Capsule PO (17:23)
[2022-03-29] MEDS: hyDRALAzine 25 mg Tablet PO (17:26)
[2022-03-29 19:21] LABS: Anion Gap 10.7 (5-19); Blood Urea Nitrogen 22 mg/dL (8-23); Calcium 8.5 mg/dL (8.5-10.5); Carbon Dioxide 25 mmol/L (22-29); Chloride 90 mmol/L (98-107); Glucose 134 mg/dL (65-115); Osmolality Calculated 259 mOsm/kg (285-295); Potassium 3.7 mmol/L (3.5-5.1); Sodium 122 mmol/L (136-145)
[2022-03-29] MEDS: ALPRAZolam 0.5 mg Tablet 1 MG PO (20:45)
[2022-03-29] MEDS: carvedilol 3.125 mg Tablet PO (20:45)
[2022-03-29] MEDS: ondansetron 2 mg/ML SDV 2 mL 4 MG IVP (22:16)
[2022-03-29] MEDS: potassium chloride ER 20 mEq Tablet 40 MEQ PO (22:19)
[2022-03-29] MEDS: FUROsemide 10 mg/mL SDV 4mL 40 MG IVP (22:21)
[2022-03-30] VITALS (8 sets, daily range): BP systolic 100–128; BP diastolic 53–67; PULSE 76–92; RESP 15–19; TEMP 36.7–38.2; O2SAT 91–96
[2022-03-30 04:57] LABS: Basophils % 0.1 %; Eosinophils % 0.1 %; Hemoglobin 10.2 g/dL (11.7-16.6); Lymphocytes # 1.2 10^3/uL (0.8-4.8); Lymphocytes % 18.5 %; Mean Corpuscular HGB Conc 32.9 g/dL (30.0-36.0); Mean Corpuscular Hemoglobin 29.9 pg (28.0-34.0); Mean Corpuscular Volume 90.9 fl (80-94); Mean Platelet Volume 8.5 fL (7.4-10.4); Monocytes # 1.3 10^3/uL (0.2-0.9); Monocytes % 19.4 %; Neutrophils # 4.09 10^3/uL (1.8-7.7); Neutrophils % 61.2 %; Nucleated Red Blood Cells % 0 %; Platelet Count 233 10^3/cmm (130-400); Red Blood Count 3.41 10^6/uL (4.1-5.3); Red Cell Distribution Width 13.4 % (12.1-15.1); White Blood Count 6.7 10^3/uL (4.0-10.0)
[2022-03-30 05:20] LABS: Alanine Aminotransferase 14 U/L (0-41); Albumin Level 2.8 g/dL (3.5-5.2); Alkaline Phosphatase 86 U/L (40-130); Anion Gap 14.6 (5-19); Aspartate Amino Transferase 24 U/L (0-40); Blood Urea Nitrogen 24 mg/dL (8-23); Calcium 8.6 mg/dL (8.5-10.5); Carbon Dioxide 25 mmol/L (22-29); Chloride 91 mmol/L (98-107); Globulin 2.5 g/dL (1.3-4.6); Glucose 126 mg/dL (65-115); Osmolality Calculated 270 mOsm/kg (285-295); Potassium 3.6 mmol/L (3.5-5.1); Sodium 127 mmol/L (136-145); Total Bilirubin 0.6 mg/dL (0.15-1.2); Total Protein 5.3 g/dL (6.6-8.7)
[2022-03-30] MEDS: oxyCODONE 5 mg IR Tab/Cap 10 MG PO ×2 (06:04→21:40)
[2022-03-30] MEDS: hyDRALAzine 50 mg Tablet PO (06:04)
[2022-03-30] MEDS: ceFAZolin 2,000 MG in sodium chloride 0.9% (plus) 50 ML 100 MG IV (06:05)
--- NOTE | 2022-03-30 08:44 | XRR_ITS ---
PROCEDURE INFORMATION: Exam: XR Chest Exam date and time: 03/30/2022 4:33 PM Age: 82 years old Clinical indication: Fever; Additional info: Erasmo TECHNIQUE: Imaging protocol: Radiologic exam of the chest. Views: 1 view. COMPARISON: CR XR chest 1V portable [id number] 03/29/2022 12:46 PM FINDINGS: Lungs: Hyperexpanded lungs consistent with COPD. The lungs are otherwise clear Pleural spaces: Unremarkable. No pleural effusion. No pneumothorax. Heart/Mediastinum: Unremarkable. No cardiomegaly. Bones/joints: Metallic sternotomy wires are present. XR/XR chest 1V portable [id number] IMPRESSION: 1. No acute findings. 2. Metallic sternotomy wires are present.
[2022-03-30] MEDS: aspirin 81 mg EC Tablet PO (09:14)
[2022-03-30] MEDS: carvedilol 3.125 mg Tablet PO ×2 (09:14→21:26)
[2022-03-30] MEDS: cholecalciferol (vitamin D3) 1,000 unit Tablet 2000 UNIT PO (09:14)
[2022-03-30] MEDS: docusate sodium 100 mg Capsule PO ×2 (09:14→17:59)
[2022-03-30] MEDS: pantoprazole DR 40 mg Tablet PO (09:14)
[2022-03-30] MEDS: atorvastatin 40 mg Tablet PO (09:14)
[2022-03-30] MEDS: finasteride 5 mg Tablet PO (09:14)
--- NOTE | 2022-03-30 09:55 | PM.PN ---
Subjective Subjective: Patient's pain is controlled. He is complaining that he did not get a Xanax last night to sleep. Patient take Xanax every night to go to sleep. At this point he has not been up with therapy yet I would like to get him up with therapy today. Drain had approximately 400 out. At this point plan will be to keep the drain in. Vitals/I&O/Wt Last Vital Signs Temp 100.8 F H 03/30/22 08:00 Pulse 86 03/30/22 08:00 Resp 16 03/30/22 08:00 BP 100/60 03/30/22 08:00 Pulse Ox 91 03/30/22 08:00 O2 Del Method 03/30/22 08:00 03/29/22 03/30/22 03/30/22 22:59 06:59 14:59 Intake Total 1705 / 2815 200 / 3015 400 / 400 Output Total 980 / 1780 1270 / 3050 Balance 725 / 1035 -1070 / -35 400 / 400 Weight last 48 hrs Weight 155 lb 6.4 oz Weight 156 lb Physical Exam Narrative: Patient resting comfortably in bed pain is controlled moving all 4 extremities. Urinary Catheter Management: Mccarthy: Cath Placed During This Visit: yes, but has since been removed by the nurse Reason for Continuing Indwelling Catheter: Decision to DC Catheter Urinary Catheter Date of Insertion: 03/29/22 Urinary Catheter Time of Insertion: 07:05 Date Urinary Catheter Removed: 03/30/22 Time Urinary Catheter Discontinued: 06:14 Data : 03/30/22 04:30 03/30/22 04:30 A&P Assessment and plan (1) Status post lumbar spinal fusion: Patient is postop day #1 for lumbar fusion. This point he was also hyponatremic. His sodium has come up to 127 from 124. At this point continue to monitor his sodium continue to monitor his hemoglobin get him up with physical therapy anticipate discharge planning either tomorrow or Friday. Attestations Medical Necessity Statement*: Pain control hyponatremia and postop day #1 from surgery so still having some pain and needs to work with physical therapy. Coding Level of Care Code Acute Waterworks Supervisor for Milena Colvin Diagnoses Status post lumbar spinal fusion Z98.1
[2022-03-30] MEDS: ALPRAZolam 0.5 mg Tablet 1 MG PO ×2 (11:45→21:26)
--- NOTE | 2022-03-30 12:43 | PM.PN ---
Subjective Subjective: He states overall is doing all right. His bottom felt sore from laying on it, taking well but states he has not figured out how to adjust the bed to make himself more comfortable. He denies any other symptoms otherwise. Discussed with him regarding fever this morning. He denies cough or shortness of breath. Denies abdominal pain. He has not urinated since Mccarthy catheter could come out early this morning at 6 AM. Tells me he has issues with his prostate. Vitals/I&O/Wt Last Vital Signs Temp 98.2 F 03/30/22 12:00 Pulse 85 03/30/22 12:00 Resp 16 03/30/22 12:00 BP 118/67 03/30/22 12:00 Pulse Ox 92 03/30/22 12:00 O2 Del Method 03/30/22 12:00 03/29/22 03/30/22 03/30/22 22:59 06:59 14:59 Intake Total 1705 / 2815 200 / 3015 452 / 452 Output Total 980 / 1780 1270 / 3050 Balance 725 / 1035 -1070 / -35 452 / 452 Weight last 48 hrs Weight 70.488 kg Weight 70.76 kg Physical Exam Const: COMMON NORMALS: patient oriented x3 and alert GENERAL APPEARANCE: cooperative ORIENTATION/CONSCIOUSNESS: Yes awake HENMT: COMMON NORMALS: oropharynx normal Neck/C-Spine: COMMON NORMALS: no JVD Resp: COMMON NORMALS: normal respiratory effort and clear to auscultation bilaterally AUSCULTATION: clear to auscultation bilaterally Cardio: COMMON NORMALS: no JVD, regular rhythm, S1 normal heart sound present, S2 normal heart sound present and No murmurs present (Cardio) RHYTHM: regular rhythm HEART SOUNDS: S1 normal heart sound present and S2 normal heart sound present GI: COMMON NORMALS: Normal to inspection, nondistended, normoactive bowel sounds present, Soft to palpation and non-tender PALPATION: Yes Soft to palpation Back/Pelvis: OTHER: Spinal wound drain. Dressing in place. Abdominal binder. Extremity: COMMON NORMALS: no joint enlargement and no pedal edema Neuro: COMMON NORMALS: patient oriented x3 and moves all extremities SENSORIUM/ORIENTATION: Yes alert Skin: COMMON NORMALS: no rashes or lesions noted GENERAL SKIN EXAM: no rashes or lesions noted Urinary Catheter Management: Mccarthy: Cath Placed During This Visit: yes, but has since been removed by the nurse Reason for Continuing Indwelling Catheter: Decision to DC Catheter Urinary Catheter Date of Insertion: 03/29/22 Urinary Catheter Time of Insertion: 07:05 Date Urinary Catheter Removed: 03/30/22 Time Urinary Catheter Discontinued: 06:14 Data : 03/30/22 04:30 03/30/22 04:30 A&P Assessment and plan (1) Fever: 100.8 Fahrenheit this morning. She denies any symptoms. He has not voided since exam this morning since Mccarthy catheter had come out. Does have prostate issues. Requesting chest x-ray, UA. Bladder scan, straight cath. (2) Lumbar stenosis with neurogenic claudication: Acute anemia, hemoglobin down to 10.2. Likely combination postoperative and has had some sanguinous output from the drain. Possibly some dilution as well. Reassess hemoglobin. SCDs. If hemoglobin stabilizes consider resumption of anticoagulation. Postoperative management per orthopedic spine surgery. (3) Hyponatremia: Improving. Hold thiazide. Regular diet. (4) Hypokalemia: Supplement with 40 IV Recheck following supplementation Check magnesium level (5) Pulmonary embolism: Hx PE. Eliquis was on hold postoperatively, currently with acute anemia. Resume Eliquis once safe. Continue SCD's Qualifiers: Pulmonary embolism type: unspecified Chronicity: chronic Acute cor pulmonale presence: without acute cor pulmonale Qualified Code(s): I27.82 - Chronic pulmonary embolism (6) CHF (congestive heart failure): No evidence of acute heart failure currently. Continue to monitor. Received a dose of Lasix yesterday, will reassess volume status. Standing Lasix has not yet restarted. Qualifiers: Heart failure type: diastolic Heart failure chronicity: chronic Qualified Code(s): I50.32 - Chronic diastolic (congestive) heart failure Plan Multiple other medical problems as outlined in past medical history Attestations Medical Necessity Statement*: Continue admission for assessment of management following lumbar fusion for lumbar stenosis, fever, acute anemia, hyponatremia. Coding Level of Care Code Acute Day Care Director for [facility] Diagnoses Fever R50.9 Lumbar stenosis with neurogenic claudication M48.062 Hyponatremia E87.1 Hypokalemia E87.6 Pulmonary embolism I27.82 Pulmonary embolism type: unspecified Chronicity: chronic Acute cor pulmonale presence: without acute cor pulmonale CHF (congestive heart failure) I50.32 Heart failure type: diastolic Heart failure chronicity: chronic
[2022-03-30 14:59] LABS: Blood Urine Trace (Negative); Glucose Urine UA Norm (Normal); Ketones Urine Negative (Negative); Protein Urine Neg (Negative); Urine Appearance Clear (CLEAR); Urine Color Yellow (Yellow); pH Urine 5 (5-7)
[2022-03-30 15:00] LABS: Add Urine Culture? No; Add Urine Microscopic? YES; Bacteria Urine TRACE /hpf; Bilirubin Urine Neg (Negative); Leukocyte Esterase Urine Negative (Negative); Nitrate Urine Negative (Negative); Urobilinogen Urine Norm (Negative)
[2022-03-30] MEDS: hyDRALAzine 25 mg Tablet PO (17:59)
[2022-03-31] VITALS (8 sets, daily range): BP systolic 85–122; BP diastolic 54–81; PULSE 63–87; RESP 15–20; TEMP 36.4–37.9; O2SAT 90–98
[2022-03-31 04:27] LABS: Basophils % 0.1 %; Eosinophils % 0.2 %; Hematocrit 25.7 % (42.0-52.0); Hemoglobin 8.9 g/dL (11.7-16.6); Lymphocytes # 1.4 10^3/uL (0.8-4.8); Mean Corpuscular HGB Conc 34.6 g/dL (30.0-36.0); Mean Corpuscular Hemoglobin 30.8 pg (28.0-34.0); Mean Corpuscular Volume 88.9 fl (80-94); Mean Platelet Volume 8.5 fL (7.4-10.4); Monocytes # 1.5 10^3/uL (0.2-0.9); Monocytes % 16.1 %; Neutrophils # 6.43 10^3/uL (1.8-7.7); Neutrophils % 68.2 %; Nucleated Red Blood Cells % 0 %; Platelet Count 187 10^3/cmm (130-400); Red Blood Count 2.89 10^6/uL (4.1-5.3); Red Cell Distribution Width 13.5 % (12.1-15.1); White Blood Count 9.4 10^3/uL (4.0-10.0)
[2022-03-31 05:06] LABS: Anion Gap 9.5 (5-19); Blood Urea Nitrogen 27 mg/dL (8-23); Calcium 8.3 mg/dL (8.5-10.5); Carbon Dioxide 27 mmol/L (22-29); Chloride 89 mmol/L (98-107); Glucose 117 mg/dL (65-115); Osmolality Calculated 260 mOsm/kg (285-295); Potassium 3.5 mmol/L (3.5-5.1); Sodium 122 mmol/L (136-145)
[2022-03-31] MEDS: docusate sodium 100 mg Capsule PO ×2 (09:34→17:52)
[2022-03-31] MEDS: cholecalciferol (vitamin D3) 1,000 unit Tablet 2000 UNIT PO (09:34)
[2022-03-31] MEDS: finasteride 5 mg Tablet PO (09:34)
[2022-03-31] MEDS: pantoprazole DR 40 mg Tablet PO (09:34)
[2022-03-31] MEDS: aspirin 81 mg EC Tablet PO (09:34)
[2022-03-31] MEDS: atorvastatin 40 mg Tablet PO (09:34)
--- NOTE | 2022-03-31 11:59 | P.PN_ITS ---
Subjective Subjective: is in the room during the exam. Patient stated he is still unable to sleep. At this point patient would like to get Xanax at noon and before bed. And they would like for him to go to a rehab facility [facility] instead of going home. Vitals/I&O/Wt Last Vital Signs Temp 98.1 F 03/31/22 08:00 Pulse 64 03/31/22 08:00 Resp 15 03/31/22 08:00 BP 107/61 03/31/22 08:00 Pulse Ox 92 03/31/22 08:00 O2 Del Method 03/31/22 08:00 03/30/22 03/31/22 03/31/22 22:59 06:59 14:59 Intake Total 420 / 1112 240 / 240 Output Total 225 / 225 575 / 800 Balance 195 / 887 -575 / 312 240 / 240 Weight last 48 hrs Weight 155 lb 6.4 oz Weight 156 lb Physical Exam Narrative: Patient in bed unable to get comfortable in the bed. Moving all extremities. Patient's Mccarthy is back in. Patient pulled his drain out. Urinary Catheter Management: Mccarthy: Cath Placed During This Visit: yes, but has since been removed by the nurse Reason for Continuing Indwelling Catheter: Other Urinary Catheter Date of Insertion: 03/30/22 Urinary Catheter Time of Insertion: 14:08 Date Urinary Catheter Removed: 03/30/22 Time Urinary Catheter Discontinued: 06:14 Data : 03/31/22 03:49 03/31/22 03:49 A&P Assessment and plan (1) Status post lumbar spinal fusion: At this point I will have the mat cleaning machine operator see him for [facility] placement. Have him get Xanax at noon and before bed. also stated that he is usually on a renal diet we will switch him to a renal diet. Continue to monitor hemoglobin Continue to work with physical therapy. Attestations Medical Necessity Statement*: monitor Hb, pain control, placement in [facility] Coding Level of Care Code Acute Memorial Counselor for Milena Colvin Diagnoses Status post lumbar spinal fusion Z98.1
[2022-03-31] MEDS: ALPRAZolam 0.5 mg Tablet 1 MG PO ×2 (13:18→19:57)
[2022-03-31] MEDS: sodium chloride 1 gm Tablet PO (17:52)
[2022-03-31] MEDS: acetaminophen 325 mg Tablet 650 MG PO (19:56)
--- NOTE | 2022-03-31 20:42 | P.PN_ITS ---
Subjective Subjective: Today he has been struggling more with basic repositioning in bed and to chair. Feels somewhat weaker, less coordinated. Having some pain at the top of his posterior pelvis where he states that figured out he had had some hardware implanted. Gets sore from staying in bed. Denies shortness of breath. No cough. Denies other pain or discomfort. Mccarthy catheter had to be placed due to urinary retention. Vitals/I&O/Wt Last Vital Signs Temp 100.2 F H 03/31/22 19:54 Pulse 67 03/31/22 19:54 Resp 20 H 03/31/22 19:54 BP 120/81 03/31/22 19:54 Pulse Ox 96 03/31/22 19:54 O2 Del Method 03/31/22 19:54 03/31/22 03/31/22 03/31/22 06:59 14:59 22:59 Intake Total 240 / 240 Output Total 575 / 800 550 / 550 Balance -575 / 312 240 / 240 -550 / -310 Weight last 48 hrs Weight 70.488 kg Physical Exam Const: COMMON NORMALS: alert; negative for patient oriented x3 GENERAL APPEARANCE: cooperative ORIENTATION/CONSCIOUSNESS: Yes awake HENMT: COMMON NORMALS: oropharynx normal Neck/C-Spine: COMMON NORMALS: no JVD Resp: COMMON NORMALS: normal respiratory effort and clear to auscultation bilaterally AUSCULTATION: clear to auscultation bilaterally Cardio: COMMON NORMALS: no JVD, regular rhythm, S1 normal heart sound present, S2 normal heart sound present and No murmurs present (Cardio) RHYTHM: regular rhythm HEART SOUNDS: S1 normal heart sound present and S2 normal heart sound present GI: COMMON NORMALS: Normal to inspection, nondistended, normoactive bowel so unds present, Soft to palpation and non-tender PALPATION: Yes Soft to pal pation Back/Pelvis: OTHER: Dressing in place. Abdominal binder. Extremity: COMMON NORMALS: no joint enlargement and no pedal edema Neuro: COMMON NORMALS: moves all extremities; negative for patient oriented x3 SENSORIUM/ORIENTATION: Yes alert Skin: COMMON NORMALS: no rashes or lesions noted GENERAL SKIN EXAM: no rashes or lesions noted Urinary Catheter Management: Mccarthy: Cath Placed During This Visit: yes, but has since been removed by the nurse Reason for Continuing Indwelling Catheter: Acute Urinary Retention or Obs truction Urinary Catheter Date of Insertion: 03/30/22 Urinary Catheter Time of Insertion: 14:08 Date Urinary Catheter Removed: 03/30/22 Time Urinary Catheter Discontinued: 06:14 Data : 03/31/22 03:49 03/31/22 03:49 A&P Assessment and plan (1) Fever: He is mildly confused today. Again low-grade fever 100.2. Was noted to have urinary retention. Noted microscopic hematuria. X-ray without suggestion of pneumonia. Denies other symptoms. No entirely clear cause of acute encephalopathy, although this is mild. Possib le infection related secondary to UTI. Possible metabolic encephalopathy with hyponatremia. Requesting urine culture. Empiric ceftriaxone. Keep Mccarthy for now, will need voiding trial. Additionally hyponatremia which is worse today. States he used to be on sodium chloride tablets. We will start NaCl tablet, continue regular diet, reassess sodium. (2) Lumbar stenosis with neurogenic claudication: Worse hemoglobin down to 8.9. Likely combination postoperative and has had some sanguinous output from the drain. Possibly some dilution as well. Reassess hemoglobin. Check Hemoccult. SCDs. If hemoglobin stabilizes consider resumption of anticoagulation. Postoperative management per orthopedic spine surgery. He appears to be in more functional decline, having more trouble with basic maneuvers, logroll, transfer. Mild encephalopathy likely contributing. Carlton tenorio, based on reassessment may benefit from rehabilitation at SNF. He would consider going to [place]. Discussed with case management. (3) Hyponatremia: Improving. Hold thiazide. Add oral NaCl. Regular diet. Does not yet at the moment appear volume overloaded, monitor. TSH 5.54, requested T4. (4) Hypokalemia: Replaced Check magnesium level (5) Pulmonary embolism: Hx PE. Eliquis was on hold postoperatively, currently with acute anemia. Resume Eliquis once safe. Continue SCD's Qualifiers: Pulmonary embolism type: unspecified Chronicity: chronic Acute cor pulmonale presence: without acute cor pulmonale Qualified Code(s): I27.82 - Chronic pulmonary embolism (6) CHF (congestive heart failure): No evidence of acute heart failure currently. Continue to monitor. Received a dose of Lasix yesterday, will reassess volume status. Standing Lasix has not yet restarted. Qualifiers: Heart failure type: diastolic Heart failure chronicity: chronic Qualified Code(s): I50.32 - Chronic diastolic (congestive) heart failure Plan Multiple other medical problems as outlined in past medical history Attestations Medical Necessity Statement*: Continue admission for assessment of management of fever, mild encephalopathy, postoperative management, reassessment of anemia. Disposition planning and arrangement. Coding Level of Care Code Acute Silver Chaser for [facility] Fwd Diagnoses Fever R50.9 Lumbar stenosis with neurogenic claudication M48.062 Hyponatremia E87.1 Hypokalemia E87.6 Pulmonary embolism I27.82 Pulmonary embolism type: unspecified Chronicity: chronic Acute cor pulmonale presence: without acute cor pulmonale CHF (congestive heart failure) I50.32 Heart failure type: diastolic Heart failure chronicity: chronic
[2022-03-31] MEDS: cefTRIAXone 1,000 MG in sodium chloride 0.9% (plus) 50 ML 100 MG IV (21:10)
[2022-03-31 22:24] LABS: Free T4 Free Thyroxine 0.89 ng/dL (0.82-1.77)
[2022-04-01] VITALS (9 sets, daily range): BP systolic 91–139; BP diastolic 55–73; PULSE 74–92; RESP 12–20; TEMP 36.9–37.6; O2SAT 94–98
[2022-04-01 04:02] LABS: Basophils % 0.1 %; Eosinophils % 0.2 %; Hematocrit 23.8 % (42.0-52.0); Hemoglobin 8.3 g/dL (11.7-16.6); Lymphocytes # 1.2 10^3/uL (0.8-4.8); Lymphocytes % 12.9 %; Mean Corpuscular HGB Conc 34.9 g/dL (30.0-36.0); Mean Corpuscular Volume 88.8 fl (80-94); Mean Platelet Volume 8.7 fL (7.4-10.4); Monocytes # 1.3 10^3/uL (0.2-0.9); Monocytes % 14.9 %; Neutrophils # 6.41 10^3/uL (1.8-7.7); Nucleated Red Blood Cells % 0 %; Platelet Count 182 10^3/cmm (130-400); Red Blood Count 2.68 10^6/uL (4.1-5.3); Red Cell Distribution Width 13.5 % (12.1-15.1)
[2022-04-01 04:30] LABS: Anion Gap 9.4 (5-19); Blood Urea Nitrogen 24 mg/dL (8-23); Calcium 8.4 mg/dL (8.5-10.5); Carbon Dioxide 28 mmol/L (22-29); Chloride 90 mmol/L (98-107); Glucose 109 mg/dL (65-115); Magnesium 1.8 mg/dL (1.7-2.3); Osmolality Calculated 263 mOsm/kg (285-295); Potassium 3.4 mmol/L (3.5-5.1); Sodium 124 mmol/L (136-145)
--- NOTE | 2022-04-01 07:04 | PM.PN ---
Subjective Subjective: POD 3 Patient resting comfortably. Reports some mild back pain denies any leg pain. Denies any chest pain, shortness of breath, headaches. Vitals/I&O/Wt Last Vital Signs Temp 98.6 F 04/01/22 04:29 Pulse 78 04/01/22 04:29 Resp 20 H 04/01/22 04:29 BP 129/72 04/01/22 04:29 Pulse Ox 98 04/01/22 04:29 O2 Del Method 03/31/22 23:32 03/31/22 04/01/22 04/01/22 22:59 06:59 14:59 Intake Total 50 / 290 150 / 440 Output Total 580 / 580 850 / 1430 Balance -530 / -290 -700 / -990 Physical Exam Narrative: Patient is alert no apparent distress. Wiggles both lower extremities with good strength fires in all motor groups. Mild palpable incisional pain. Feet are warm good cap refill dorsalis pedis posterior pulses are weak but palpable. Calves are supple no medial thigh tenderness. Urinary Catheter Management: Mccarthy: Cath Placed During This Visit: yes, but has since been removed by the nurse Reason for Continuing Indwelling Catheter: Other Urinary Catheter Date of Insertion: 03/30/22 Urinary Catheter Time of Insertion: 14:08 Date Urinary Catheter Removed: 03/30/22 Time Urinary Catheter Discontinued: 06:14 Data : 04/01/22 03:26 04/01/22 03:26 A&P Assessment and plan (1) Status post lumbar spinal fusion: Physical therapy continue to mobilize. Encourage incentive spirometry for pulmonary toilet. Discontinue Mccarthy catheter give Flomax 0.4 mg once if unable to void. Consider fluid restriction based on his hyponatremia at 124. coordinator of library services to evaluate for placement once more medically stable. (2) Hyponatremia: (3) Acute blood loss as cause of postoperative anemia: Attestations Medical Necessity Statement*: defer to medical team Coding Level of Care Code Acute Portable Canteen Operator for Milena Colvin Diagnoses Status post lumbar spinal fusion Z98.1 Hyponatremia E87.1 Acute blood loss as cause of postoperative anemia D62
[2022-04-01] MEDS: pantoprazole DR 40 mg Tablet PO (09:54)
[2022-04-01] MEDS: oxyCODONE 5 mg IR Tab/Cap 10 MG PO ×3 (09:55→23:29)
[2022-04-01] MEDS: cholecalciferol (vitamin D3) 1,000 unit Tablet 2000 UNIT PO (09:55)
[2022-04-01] MEDS: aspirin 81 mg EC Tablet PO (09:55)
[2022-04-01] MEDS: ALPRAZolam 0.5 mg Tablet 1 MG PO ×3 (09:57→23:29)
[2022-04-01] MEDS: sodium chloride 1 gm Tablet PO ×2 (09:57→17:11)
[2022-04-01] MEDS: finasteride 5 mg Tablet PO (09:57)
[2022-04-01] MEDS: docusate sodium 100 mg Capsule PO ×2 (09:57→17:12)
[2022-04-01] MEDS: atorvastatin 40 mg Tablet PO (09:58)
--- NOTE | 2022-04-01 14:38 | PM.PN ---
Subjective Subjective: Hospital course, labs appreciated. Patient denies any nausea, vomiting, headache. Laying comfortably in bed. T-max in the last 24 hours 100.2 Fahrenheit. Patient states he has not been eating his meals because they do not smell good. He otherwise denies any chest pain, dysuria, constipation, diarrhea, headache, dizziness. Vitals/I&O/Wt Last Vital Signs Temp 98.9 F 04/01/22 12:00 Pulse 79 04/01/22 12:00 Resp 16 04/01/22 12:00 BP 91/58 04/01/22 12:00 Pulse Ox 97 04/01/22 12:00 O2 Del Method 04/01/22 12:00 03/31/22 04/01/22 04/01/22 22:59 06:59 14:59 Intake Total 50 / 290 150 / 440 360 / 360 Output Total 580 / 580 850 / 1430 Balance -530 / -290 -700 / -990 360 / 360 Physical Exam Narrative: White male, in no obvious distress, AO x3 HEENT: Atraumatic and normocephalic. Pupils equally round. Oropharynx clear. Neck is supple no lymphadenopathy or thyromegaly Cardiovascular regular rate and rhythm, no murmur Lungs clear no wheezing or crackles Abdomen is soft, bowel sounds noted, binder in place exam demonstrates Mccarthy Extremities no cyanosis clubbing or edema. Patient has no evidence of foot drop. Neuro no obvious focal deficits Skin no rash Urinary Catheter Management: Mccarthy: Cath Placed During This Visit: yes, but has since been removed by the nurse Reason for Continuing Indwelling Catheter: Other Urinary Catheter Date of Insertion: 03/30/22 Urinary Catheter Time of Insertion: 14:08 Date Urinary Catheter Removed: 03/30/22 Time Urinary Catheter Discontinued: 06:14 Data : 04/01/22 03:26 04/01/22 03:26 A&P Assessment and plan (1) Fever: He is mildly confused today. Again low-grade fever 100.2. Was noted to have urinary retention. Noted microscopic hematuria. X-ray without suggestion of pneumonia. Denies other symptoms. No entirely clear cause of acute encephalopathy, although this is mild. Possible infection related secondary to UTI. Possible metabolic encephalopathy with hyponatremia. Requesting urine culture. Empiric ceftriaxone. Keep Mccarthy for now, will need voiding trial. Additionally hyponatremia which is worse today. States he used to be on sodium chloride tablets. We will start NaCl tablet, continue regular diet, reassess sodium. (2) Lumbar stenosis with neurogenic claudication: Worse hemoglobin down to 8.9. Likely combination postoperative and has had some sanguinous output from the drain. Possibly some dilution as well. Reassess hemoglobin. Check Hemoccult. SCDs. If hemoglobin stabilizes consider resumption of anticoagulation. Postoperative management per orthopedic spine surgery. He appears to be in more functional decline, having more trouble with basic maneuvers, logroll, transfer. Mild encephalopathy likely contributing. However, based on reassessment may benefit from rehabilitation at SNF. He would consider going to [place]. Discussed with case management. (3) Hyponatremia: Improving. Hold thiazide. Add oral NaCl. Regular diet. Does not yet at the moment appear volume overloaded, monitor. TSH 5.54, requested T4. (4) Hypokalemia: Replaced Check magnesium level (5) Pulmonary embolism: Hx PE. Eliquis was on hold postoperatively, currently with acute anemia. Resume Eliquis once safe. Continue SCD's Qualifiers: Pulmonary embolism type: unspecified Chronicity: chronic Acute cor pulmonale presence: without acute cor pulmonale Qualified Code(s): I27.82 - Chronic pulmonary embolism (6) CHF (congestive heart failure): No evidence of acute heart failure currently. Continue to monitor. Received a dose of Lasix yesterday, will reassess volume status. Standing Lasix has not yet restarted. Qualifiers: Heart failure type: diastolic Heart failure chronicity: chronic Qualified Code(s): I50.32 - Chronic diastolic (congestive) heart failure Plan Multiple other medical problems as outlined in past medical history Plan for the day: Fever less likely infectious. Investigations so far ruled out pneumonia, UTI. Fever most likely secondary to atelectasis. Intensive pulmonary toilet with incentive spirometry. Switch diet to regular diet. DC Mccarthy for voiding trial. Continue with finasteride. If patient fails voiding trials will discharge with Mccarthy catheter with advised to follow-up with Dr. Stephenson as an outpatient within next 1 week. Continue to hold off on Coreg and diuretics. Hemoglobin has remained stable. Can start anticoagulation back once safe from surgical point of view. Till then continue SCDs. Patient is safe to be discharged from medicine point of view once ready from surgical point of view and definitive discharge planning is sought. Till then we will continue to follow. Plan discussed in detail with patient and RN. All the questions were answered. Attestations Medical Necessity Statement*: As per primary team while safe discharge planning is sought. Time Spent in Patient Care: Greater than 35 minutes Coding Level of Care Code Acute Credit Products Officer for Chg Fwd Diagnoses Fever R50.9 Lumbar stenosis with neurogenic claudication M48.062 Hyponatremia E87.1 Hypokalemia E87.6 Pulmonary embolism I27.82 Pulmonary embolism type: unspecified Chronicity: chronic Acute cor pulmonale presence: without acute cor pulmonale CHF (congestive heart failure) I50.32 Heart failure type: diastolic Heart failure chronicity: chronic
[2022-04-01] MEDS: cefTRIAXone 1,000 MG in sodium chloride 0.9% (plus) 50 ML 100 MG IV (20:00)
[2022-04-02] MEDS: tamsulosin 0.4 mg Capsule PO (01:28)
--- NOTE | 2022-04-02 01:48 | PC.NURSE ---
Patient has difficulty voiding this night post lizarraga catheter removal. Per JANELL Kapadia in nursing order to give Flomax 0.4mg PO one time for difficulty voiding. Patient has produced only 200cc of urine this night.
[2022-04-02 03:43] LABS: T4 Total 8.3 mcg/dL (4.9-10.5)
[2022-04-02 04:00] VITALS: BP 115/62; PULSE 78; RESP 16; TEMP 37.3; O2SAT 94
[2022-04-02 06:24] LABS: Basophils % 0.3 %; Eosinophils # 0.1 10^3/uL (0.0-0.8); Eosinophils % 0.7 %; Hematocrit 25.3 % (42.0-52.0); Hemoglobin 8.4 g/dL (11.7-16.6); Lymphocytes # 1.2 10^3/uL (0.8-4.8); Lymphocytes % 16.2 %; Mean Corpuscular HGB Conc 33.2 g/dL (30.0-36.0); Mean Corpuscular Hemoglobin 29.9 pg (28.0-34.0); Mean Platelet Volume 9.1 fL (7.4-10.4); Monocytes # 0.9 10^3/uL (0.2-0.9); Monocytes % 12.4 %; Neutrophils # 5.01 10^3/uL (1.8-7.7); Neutrophils % 69.8 %; Nucleated Red Blood Cells % 0 %; Platelet Count 204 10^3/cmm (130-400); Red Blood Count 2.81 10^6/uL (4.1-5.3); Red Cell Distribution Width 13.4 % (12.1-15.1); White Blood Count 7.2 10^3/uL (4.0-10.0)
[2022-04-02 06:39] LABS: SARS Covid-2 Antigen negative (Negative)
[2022-04-02 06:53] LABS: Anion Gap 13.5 (5-19); Blood Urea Nitrogen 26 mg/dL (8-23); Calcium 8.4 mg/dL (8.5-10.5); Carbon Dioxide 26 mmol/L (22-29); Chloride 90 mmol/L (98-107); Glucose 83 mg/dL (65-115); Osmolality Calculated 266 mOsm/kg (285-295); Potassium 3.5 mmol/L (3.5-5.1); Sodium 126 mmol/L (136-145)
--- NOTE | 2022-04-02 07:17 | P.PN_ITS ---
Subjective Subjective: Patient resting comfortably. Vitals/I&O/Wt Last Vital Signs Temp 99.1 F 04/02/22 04:00 Pulse 78 04/02/22 04:00 Resp 16 04/02/22 04:00 BP 115/62 04/02/22 04:00 Pulse Ox 94 04/02/22 04:00 O2 Del Method 04/02/22 04:00 04/01/22 04/02/22 04/02/22 22:59 06:59 14:59 Intake Total 470 / 830 1110 / 1940 Output Total 600 / 600 Balance 470 / 830 510 / 1340 Physical Exam Narrative: Patient is alert no apparent distress.? Wiggles both lower extremities with good strength fires in all motor groups.? Mild palpable incisional pain.? Feet are warm good cap refill dorsalis pedis posterior pulses are weak but palpable.? Calves are supple no medial thigh tenderness. Urinary Catheter Management: Mccarthy: Cath Placed During This Visit: yes, but has since been removed by the nurse Reason for Continuing Indwelling Catheter: Decision to DC Catheter Urinary Catheter Date of Insertion: 03/30/22 Urinary Catheter Time of Insertion: 14:08 Date Urinary Catheter Removed: 04/01/22 Time Urinary Catheter Discontinued: 14:00 Data : 04/02/22 04:55 04/02/22 04:55 A&P Assessment and plan (1) Acute blood loss as cause of postoperative anemia: Encourage mobilization with physical therapy. Continue incentive spirometry. Okay from orthopedic standpoint to discharge to nursing facility when bed avail able and medically stable cleared by the hospitalist team. We will see him back in the office in 1 week's time for wound check. (2) Status post lumbar spinal fusion: (3) Hyponatremia: Attestations Medical Necessity Statement*: Defer to medical team Coding Level of Care Code Acute Cardiovascular Lab Director for Milena Colvin Diagnoses Acute blood loss as cause of postoperative anemia D62 Status post lumbar spinal fusion Z98.1 Hyponatremia E87.1
[2022-04-02 07:28] VITALS: BP 115/68; PULSE 78; RESP 16; TEMP 37.1; O2SAT 93
[2022-04-02] MEDS: cholecalciferol (vitamin D3) 1,000 unit Tablet 2000 UNIT PO (09:33)
[2022-04-02 09:34] VITALS: RESP 14
[2022-04-02] MEDS: docusate sodium 100 mg Capsule PO (09:34)
[2022-04-02] MEDS: sodium chloride 1 gm Tablet PO (09:34)
[2022-04-02] MEDS: aspirin 81 mg EC Tablet PO (09:34)
[2022-04-02] MEDS: ALPRAZolam 0.5 mg Tablet 1 MG PO (09:34)
[2022-04-02] MEDS: atorvastatin 40 mg Tablet PO (09:34)
[2022-04-02] MEDS: oxyCODONE 5 mg IR Tab/Cap 10 MG PO (09:34)
[2022-04-02] MEDS: finasteride 5 mg Tablet PO (09:34)
[2022-04-02] MEDS: pantoprazole DR 40 mg Tablet PO (09:34)
--- NOTE | 2022-04-02 10:30 | PC.NURSE ---
called Brett per Dr. Salazar's request to inform ortho that hospitalists are not responsible for discharhge. Pt has been able to void without difficulty after recieving dose of flomax. Pt cleared to leave from hospitalist standpoint
[2022-04-02 11:53] VITALS: BP 106/53; PULSE 80; RESP 18; TEMP 36.9; O2SAT 95
--- NOTE | 2022-04-02 12:04 | P.DS_ITS ---
Discharge Providers Date of Admission: 03/29/22 11:34 Date of Discharge: April 02, 2022 Attending Provider at Admission: Ricky Venegas DO Attending Provider at Discharge: Ricky Venegas DO Primary Care Provider: Ganesh Albarado MD Diagnoses at Discharge Discharge Diagnosis (1) Acute blood loss as cause of postoperative anemia: Status: Acute (2) Status post lumbar spinal fusion: Status: Acute (3) Hyponatremia: Status: Acute Reason for Visit Reason for Visit: L3/4 SREW REMOVAL L3-S1 FUSION AND DECOMPRESSION L Hospital Course Hospital Course uneventful Physical Exam Urinary Catheter Management: Mccarthy: Cath Placed During This Visit: yes, but has since been removed by the nurse Reason for Continuing Indwelling Catheter: Decision to DC Catheter Urinary Catheter Date of Insertion: 03/30/22 Urinary Catheter Time of Insertion: 14:08 Date Urinary Catheter Removed: 04/01/22 Time Urinary Catheter Discontinued: 14:00 Discharge Data Studies Completed and Pending Completed Studies During Hospitalization Category Date Time Status CXRP [XR chest 1V portable [id number]] Routine Exams 03/30/22 08:44 Completed XR chest 1V portable [id number] Routine Exams 03/29/22 12:18 Completed XR lumbar spine 1V [id number] Routine Exams 03/29/22 Completed Pending at discharge Category Date Time Status Occult Blood Stool [Immunochemical Fecal OCB] Routine Lab 03/31/22 20:45 Uncollected Radiology Impressions Lumbar Spine X-Ray 03/29/22 00:00 Impression: Posterior lumbosacral fusion. Chest X-Ray 03/30/22 08:44 IMPRESSION: 1. No acute findings. 2. Metallic sternotomy wires are present. Laboratory Results WBC 7.2 10^3/uL (4.0-10.0) 04/02/22 04:55 RBC 2.81 10^6/uL (4.1-5.3) L 04/02/22 04:55 Hgb 8.4 g/dL (11.7-16.6) L 04/02/22 04:55 Hct 25.3 % (42.0-52.0) L 04/02/22 04:55 MCV 90.0 fl (80-94) 04/02/22 04:55 MCH 29.9 pg (28.0-34.0) 04/02/22 04:55 MCHC 33.2 g/dL (30.0-36.0) 04/02/22 04:55 RDW 13.4 % (12.1-15.1) 04/02/22 04:55 Plt Count 204 10^3/cmm (130-400) 04/02/22 04:55 MPV 9.1 fL (7.4-10.4) 04/02/22 04:55 Neut % (Auto) 69.8 % 04/02/22 04:55 Lymph % (Auto) 16.2 % 04/02/22 04:55 [place] % (Auto) 12.4 % 04/02/22 04:55 Eos % (Auto) 0.7 % 04/02/22 04:55 Baso % (Auto) 0.3 % 04/02/22 04:55 Neut # (Auto) 5.01 10^3/uL (1.8-7.7) 04/02/22 04:55 Lymph # (Auto) 1.2 10^3/uL (0.8-4.8) 04/02/22 04:55 [place] # (Auto) 0.9 10^3/uL (0.2-0.9) 04/02/22 04:55 Eos # (Auto) 0.1 10^3/uL (0.0-0.8) 04/02/22 04:55 Baso # (Auto) 0.0 10^3/uL (0.0-0.1) 04/02/22 04:55 Nucleated RBC % (auto) 0 % 04/02/22 04:55 Nucleated RBCs # 0.0 /100WBC 04/02/22 04:55 Sodium 126 mmol/L (136-145) L 04/02/22 04:55 Potassium 3.5 mmol/L (3.5-5.1) 04/02/22 04:55 Chloride 90 mmol/L (98-107) L 04/02/22 04:55 Carbon Dioxide 26 mmol/L (22-29) 04/02/22 04:55 Anion Gap 13.5 (5-19) 04/02/22 04:55 BUN 26 mg/dL (8-23) H 04/02/22 04:55 Creatinine 1.5 mg/dL (0.7-1.2) H 04/02/22 04:55 GFR Calculation Not Reportable 04/02/22 04:55 Glucose 83 mg/dL (65-115) 04/02/22 04:55 Calculated Osmolality 266 mOsm/kg (285-295) L 04/02/22 04:55 Calcium 8.4 mg/dL (8.5-10.5) L 04/02/22 04:55 Magnesium 1.8 mg/dL (1.7-2.3) 04/01/22 03:26 Total Bilirubin 0.6 mg/dL (0.15-1.2) 03/30/22 04:30 AST 24 U/L (0-40) 03/30/22 04:30 ALT 14 U/L (0-41) 03/30/22 04:30 Alkaline Phosphatase 86 U/L (40-130) 03/30/22 04:30 Total Protein 5.3 g/dL (6.6-8.7) L 03/30/22 04:30 Albumin 2.8 g/dL (3.5-5.2) L 03/30/22 04:30 Globulin 2.5 g/dL (1.3-4.6) 03/30/22 04:30 TSH 5.54 uIU/mL (0.27-4.20) H 03/29/22 08:52 Free T4 0.89 ng/dL (0.82-1.77) 03/31/22 03:49 Thyroxine (T4) 8.3 mcg/dL (4.9-10.5) 03/31/22 03:49 Urine Color Yellow (Yellow) 03/30/22 13:37 Urine Appearance Clear (CLEAR) 03/30/22 13:37 Urine pH 5 (5-7) 03/30/22 13:37 Ur Specific [place] 1.020 (1.005-1.030) 03/30/22 13:37 Urine Protein Neg (Negative) 03/30/22 13:37 Urine Glucose (UA) Norm (Normal) 03/30/22 13:37 Urine Ketones Negative (Negative) 03/30/22 13:37 Urine Blood Trace (Negative) H 03/30/22 13:37 Urine Nitrate Negative (Negative) 03/30/22 13:37 Urine Bilirubin Neg (Negative) 03/30/22 13:37 Urine Urobilinogen Norm mg/dL (Negative) 03/30/22 13:37 Ur Leukocyte Esterase Negative (Negative) 03/30/22 13:37 Urine RBC 10-15 /hpf (0-2) H 03/30/22 13:37 Urine WBC None /hpf (0-5) 03/30/22 13:37 Ur Squamous Epith Cells None /hpf (0-5) 03/30/22 13:37 Amorphous Sediment Not Reportable 03/30/22 13:37 Urine Bacteria Trace /hpf (NONE) 03/30/22 13:37 SARS-CoV-2 Ag (Rapid) negative (Negative) 04/02/22 05:05 Vitals Last Vital Signs Temp 98.4 F 04/02/22 11:53 Pulse 80 04/02/22 11:53 Resp 18 04/02/22 11:53 BP 106/53 04/02/22 11:53 Pulse Ox 95 04/02/22 11:53 O2 Del Method 04/02/22 11:53 Discharge Plan Discharge Patient Disposition: Home Condition: Stable Prescriptions: New sodium chloride 1 gram Tablet 1 g PO BID Qty: 30 0RF oxycodone 10 mg tablet 10 mg PO Q6H PRN (Reason: pain) 7 Days Qty: 30 0RF Continued atorvastatin 40 mg tablet 40 mg PO DAILY oxycodone 10 mg tablet 10 mg PO DAILY PRN (Reason: Pain) finasteride 5 mg tablet 5 mg PO DAILY omeprazole 20 mg capsule,delayed release(DR/EC) 20 mg PO DAILY aspirin [Adult Low Dose Aspirin] 81 mg tablet,delayed release (DR/EC) 81 mg PO DAILY melatonin 3 mg capsule 3 mg PO BEDTIME (DME) Lumbar Corset Brace See Rx Instructions .Route .MEDSUPPLY Qty: 1 0RF Rx Instructions: As directed (DME) DME: Bed rail See Rx Instructions .Route .MEDSUPPLY Qty: 1 0RF Rx Instructions: As directed (DME) DME: Wedge Pillow See Rx Instructions .Route .MEDSUPPLY Qty: 1 0RF Rx Instructions: As directed furosemide 40 mg tablet 40 mg PO DAILY PRN (Reason: Edema) alprazolam 1 mg tablet 1 mg PO QID PRN (Reason: Anxiety) cholecalciferol (vitamin D3) [Vitamin D3] 25 mcg (1,000 unit) Capsule 25 mcg PO DAILY Eliquis 2.5 mg Tablet 2.5 mg PO BID cyclobenzaprine 10 mg Tablet 10 mg PO TID PRN (Reason: Muscle Pain) Senna-S 8.6-50 mg Tablet 1 tab-cap PO DAILY PRN (Reason: Constipation) Held amlodipine 5 mg tablet 5 mg PO BID Hold Instructions: Resume on 04/10/22. hydralazine 25 mg tablet 100 mg PO DIRECTED Hold Instructions: Resume on 04/11/22. Rx Instructions: 50mg in AM, 25mg noon, and 25mg PM carvedilol 3.125 mg tablet 3.125 mg PO BID Qty: 180 2RF Hold Instructions: Resume on 04/11/22. Discontinued chlorthalidone 25 mg tablet 12.5 mg PO DAILY Qty: 30 0RF Discharge Orders: Discharge Order (Routine); Ordered 04/02/22 Ordered By: Ricky Venegas Discharge Diet: Advance as tolerated Discharge Activity: Limit activity as instructed Patient Instructions: Opioid Safety Activity Restrictions/Additional Instructions: Please follow-up with your primary care provider within next 1 week. Please recheck CMP with your primary care provider. Continue taking salt tablets 1 g twice daily for now. Do not take your blood pressure medications including amlodipine, carvedilol, hydralazine and chlorthalidone for now. Please check your blood pressure daily at home and maintain a blood pressure diary and follow-up with your primary care provider within the next 10 days for further adjustment of antihypertensives if and when needed. Your blood pressure should be less than 140/90 mmHg. If blood pressure start trending more than 140/90 you can start your blood pressure medications gradually with amlodipine 5 mg. Thank you for [facility] for your care! The following is a list of instructions, from your provider, to follow upon your discharge to ensure you have the optimal recovery from your recent injury orsurgery. Follow-up care is a shen part of your treatment and safety. Be sure to make and go to all appointments, and call your doctor if you are having problems. If you do not already have a follow-up appointment made, call Dr. Venegas office in the next 1-3 days to make follow up appointment for 1 weeks at [phone]. It is also a good idea to know your test results and keep a list of the medicines you take. Medications will be prescribed for you at your provider's discretion. These medications are to be used as instructed; if they are taken more often that prescribed they will not be refilled early and in most cases will not be refilled at all. > When a refill is needed,you should contact gely sol 2-3 business days before your prescription runs out. Medications will NOT be refilled by quality control systems manager providers after hours! > Many pain medications contain Tylenol (Acetaminophen). Do not consume more than 4,000 mg of Tylenol per day in total with any combination ofmedications. > Pain medications can cause constipation. Please use an over the counter stool softener as directed, while taking pain medications. Consulty our local pharmacist with questions or recommendations on stool softeners. If constipation persists, contact our office or your primary care provider. > While under our care,you are not to receive pain medications or other controlled substances from any other provider unless our office is notified and approves. Any attempts to do so will result in refusal to prescribe any further pain medications and possible dismissal from our practice. ? ? Showering is permitted, however we ask that you do not take a bath, sit in a whirlpool / Jacuzzi, or go swimming for 1 month. For only the first 2 days after surgery, lt wilt be necessary for you to cover your wound/dressing with plastic and tape to keep it dry. ? Walking is essential for the healing process after surgery. We would like you to slowly advance your walking. This should be done on relatively flat clear ground (inside or out) or can be done on a treadmill. Remember this goal does not have to happen all at once, slowly increase your distance and duration. This can be broken into more more than one walk per day as tolerated. Patients who walk as directed after surgery rarely require Physical Therapy. In the unlikely event this issue arises your provider will direct hospital staff to make the appropriate arrangements. ? No lifting over 5 pounds {a gallon of milk) or bending/twisting until further notice. Each of these activities places an unnecessary amount of stress onto the body and can impede the delicate healing process. > Instead of bending at the waist, keep your back straight and bend at the knees. > Instead of twisting your torso, keep your back straight and turn your entire body with your feet. ? You may sleep in any position which makes you comfortable. Many patients find comfort sleeping in a reclining chair. It is not abnormal to have difficulty sleeping for the first several weeks following your surgery. We recommend trying Benadry! or Tylenol PM as directed to help with your sleeping difficulties. Both medications are over the counter and available withoutprescription. ? NO SMOKING!!! Smoking dramatically increases the probability of developing postoperative wound infections. ? Common complaints after lumbar and/or thoracic spine surgery include, but are not limited to: numbness and/or tingling in the legs, pain around the incision and surrounding tissues, muscle spasms, or stiffness of the middle to low back. Contact our office if these symptoms persist or if an acute change occurs. ? No driving for the first 3-5days, and not while taking narcotics [] until seen at your follow-up appointment and cleared. There are no restrictions for riding on short trips, however if you take a longer trip, arrangements should be made to make regular stops to get out of the vehicle and stretch . ? Swelling is an unfortunate event that will take place with any surgery and is the primary source of your postoperative discomfort. While walking and regular approved activities helps control inflammation, there are additional steps you can take to minimizeswelling. > Place ice over the surgical site and surrounding tissue for twenty minutes, followed by applying a low/medium heat (heating pad) for an additional twenty minutes every 1-2 hours as needed for painrelief. > You may use of over the counter anti-inflammatory medications (Ibuprofen, Motrin, Aleve, Advil, etc) as directed on the package label. These types of medicines wm significantly reduce the amount of discomfort you experience after surgery from swelling. It should be noted that if you have and allergy to any of these medications, or a history of ulcers or kidney disease you should consult you primary care provider prior to starting these medications. Discharge Attestations Time Spent in Discharge Care*: less than 30 min Quality Metrics Clinical Quality Measures [ No reported AMI, CVA or VTE this stay] Coding Level of Care Code Acute Chg FW DC note Diagnoses Acute blood loss as cause of postoperative anemia D62 Status post lumbar spinal fusion Z98.1 Hyponatremia E87.1
--- NOTE | 2022-04-02 12:34 | P.PN_ITS ---
Subjective Subjective: No acute events overnight. Resting comfortably. Denies any new complaints. Mccarthy catheter was removed yesterday and he voided after that. Vitals/I&O/Wt Last Vital Signs Temp 98.4 F 04/02/22 11:53 Pulse 80 04/02/22 11:53 Resp 18 04/02/22 11:53 BP 106/53 04/02/22 11:53 Pulse Ox 95 04/02/22 11:53 O2 Del Method 04/02/22 11:53 04/01/22 04/02/22 04/02/22 22:59 06:59 14:59 Intake Total 470 / 830 1110 / 1940 360 / 360 Output Total 600 / 600 Balance 470 / 830 510 / 1340 360 / 360 Physical Exam Narrative: White male, in no obvious distress, AO x3 HEENT: Atraumatic and normocephalic. Pupils equally round. Oropharynx clear. Neck is supple no lymphadenopathy or thyromegaly Cardiovascular regular rate and rhythm, no murmur Lungs clear no wheezing or crackles Abdomen is soft, bowel sounds noted, binder in place exam demonstrates Mccarthy Extremities no cyanosis clubbing or edema. Patient has no evidence of foot drop. Neuro no obvious focal deficits Skin no rash Urinary Catheter Management: Mccarthy: Cath Placed During This Visit: yes, but has since been removed by the nurse Reason for Continuing Indwelling Catheter: Decision to DC Catheter Urinary Catheter Date of Insertion: 03/30/22 Urinary Catheter Time of Insertion: 14:08 Date Urinary Catheter Removed: 04/01/22 Time Urinary Catheter Discontinued: 14:00 Data : 04/02/22 04:55 04/02/22 04:55 Micro: Microbiology 03/31/22 22:10 Urine Culture - Final Urine Catheterized A&P Assessment and plan (1) Fever: He is mildly confused today. Again low-grade fever 100.2. Was noted to have urinary retention. Noted microscopic hematuria. X-ray without suggestion of pneumonia. Denies other symptoms. No entirely clear cause of acute encephalopathy, although this is mild. Possible infection related secondary to UTI. Possible metabolic encephalopathy with hyponatremia. Requesting urine culture. Empiric ceftriaxone. Keep Mccarthy for now, will need voiding trial. Additionally hyponatremia which is worse today. States he used to be on sodium chloride tablets. We will start NaCl tablet, continue regular diet, reassess sodium. (2) Lumbar stenosis with neurogenic claudication: Worse hemoglobin down to 8.9. Likely combination postoperative and has had some sanguinous output from the drain. Possibly some dilution as well. Reassess hemoglobin. Check Hemoccult. SCDs. If hemoglobin stabilizes consider resumption of anticoagulation. Postoperative management per orthopedic spine surgery. He appears to be in more functional decline, having more trouble with basic maneuvers, logroll, transfer. Mild encephalopathy likely contributing. However, based on reassessment may benefit from rehabilitation at [facility]. He would consider going to [place]. Discussed with case management. (3) Hyponatremia: Improving. Hold thiazide. Add oral NaCl. Regular diet. Does not yet at the moment appear volume overloaded, monitor. TSH 5.54, requested T4. (4) Hypokalemia: Replaced Check magnesium level (5) Pulmonary embolism: Hx PE. Eliquis was on hold postoperatively, currently with acute anemia. Resume Eliquis once safe. Continue SCD's Qualifiers: Acute cor pulmonale presence: without acute cor pulmonale Chronicity: chronic Pulmonary embolism type: unspecified Qualified Code(s): I27.82 - Chronic pulmonary embolism (6) CHF (congestive heart failure): No evidence of acute heart failure currently. Continue to monitor. Received a dose of Lasix yesterday, will reassess volume status. Standing Lasix has not yet restarted. Qualifiers: Heart failure chronicity: chronic Heart failure type: diastolic Qualified Code(s): I50.32 - Chronic diastolic (congestive) heart failure Plan Multiple other medical problems as outlined in past medical history Plan for the day: Patient is stable to be discharged from medicine point of view. Continue with incentive spirometry on discharge. Continue finasteride. Add Flomax 0.4 nightly at home. Continue to hold off on Coreg and diuretics for now. Can start anticoagulation back once safe from orthopedic point of view. Follow-up with her primary care provider within next 1 week for repeat BMP and blood pressure check. Attestations Medical Necessity Statement*: As per primary team. Time Spent in Patient Care: 16 - 35 minutes Coding Level of Care Code Acute Arc Furnace Operator for Ravig Fwd Diagnoses Fever R50.9 Lumbar stenosis with neurogenic claudication M48.062 Hyponatremia E87.1 Hypokalemia E87.6 Pulmonary embolism I27.82 Acute cor pulmonale presence: without acute cor pulmonale Chronicity: chronic Pulmonary embolism type: unspecified CHF (congestive heart failure) I50.32 Heart failure chronicity: chronic Heart failure type: diastolic
--- NOTE | 2022-04-02 16:45 | PC.NURSE ---
dc'd pt piv, report called to [facility]. Their transport here to take pt to rehab. at bedside, all personal belongings sent with patient.
== END 2022-04-02 14:00 | disposition skilled nursing facility (03) | DRG 459 ==
LOC: MEDSURG 11:35
PROVIDERS: Anesthesiology; Internal Medicine; Student in an Organized Health Care Education/Training Program; Admitting Provider Orthopaedic Surgery; PCP Family Medicine; Visit Provider Orthopaedic Surgery
PROC: 0SG1071 Fusion of 2 or more Lumbar Vertebral Joints with Autologous Tissue Substitute, Posterior Approach, Posterior Column, Open Approach (ICD-10-PCS; principal; 2022-03-29 07:00)
PROC: 0SG1071 Fusion of 2 or more Lumbar Vertebral Joints with Autologous Tissue Substitute, Posterior Approach, Posterior Column, Open Approach (ICD-10-PCS; 2022-03-29 07:00)
PROC: 0SG1071 Fusion of 2 or more Lumbar Vertebral Joints with Autologous Tissue Substitute, Posterior Approach, Posterior Column, Open Approach (ICD-10-PCS; CPT 63005; 2022-03-29 07:00)
DX: M48.062 Spinal stenosis, lumbar region with neurogenic claudication (principal); G93.41 Metabolic encephalopathy; I50.32 Chronic diastolic (congestive) heart failure; I27.82 Chronic pulmonary embolism; N39.0 Urinary tract infection, site not specified; D62 Acute posthemorrhagic anemia; E87.1 Hypo-osmolality and hyponatremia; Z79.82 Long term (current) use of aspirin; Z79.891 Long term (current) use of opiate analgesic; I11.0 Hypertensive heart disease with heart failure; F32.A Depression, unspecified; I25.10 Atherosclerotic heart disease of native coronary artery without angina pectoris; Z95.1 Presence of aortocoronary bypass graft; Z87.891 Personal history of nicotine dependence; N40.1 Benign prostatic hyperplasia with lower urinary tract symptoms; R33.8 Other retention of urine; K59.00 Constipation, unspecified; Z79.01 Long term (current) use of anticoagulants; R31.29 Other microscopic hematuria; R50.9 Fever, unspecified; E87.6 Hypokalemia; K21.9 Gastro-esophageal reflux disease without esophagitis; F41.9 Anxiety disorder, unspecified
CPT/HCPCS: 36415; 51702; 51798; 71045; 72020; 76000; 80048; 80053; 81001; 83735; 84436; 84439; 84443; 85025; 87086; 87426; 93005; 97110; 97116; 97161; 97530; C1713; C1762; J0696; J1170; J1644; J1940; J2370; J2405; J2704; J3010; J3370; J3475; J3480; J3490; J7030

== ENCOUNTER → 2022-04-16 13:24 | Outpatient (BNVA) | payer MEDICARE, OTHER, SELFPAY | PROVIDERS: PCP Family Medicine; Visit Provider Orthopaedic Surgery | DX: Z47.89 Encounter for other orthopedic aftercare (principal); Z98.1 Arthrodesis status | CPT/HCPCS: 99024 ==

== ENCOUNTER → 2022-04-22 13:48 | Outpatient (BNVA) | payer MEDICARE, OTHER, SELFPAY | PROVIDERS: PCP Family Medicine; Visit Provider Internal Medicine Cardiovascular Disease | DX: I13.0 Hypertensive heart and chronic kidney disease with heart failure and stage 1 through stage 4 chronic kidney disease, or unspecified chronic kidney disease (principal); N18.9 Chronic kidney disease, unspecified; I50.32 Chronic diastolic (congestive) heart failure; I27.82 Chronic pulmonary embolism; Z95.1 Presence of aortocoronary bypass graft; D64.9 Anemia, unspecified; I95.9 Hypotension, unspecified; Z87.891 Personal history of nicotine dependence | CPT/HCPCS: 99214 ==

== ENCOUNTER → 2022-05-14 13:41 | Outpatient (BNVA) | payer MEDICARE, OTHER, SELFPAY | PROVIDERS: PCP Family Medicine; Visit Provider Orthopaedic Surgery | DX: Z47.89 Encounter for other orthopedic aftercare (principal); Z98.1 Arthrodesis status | CPT/HCPCS: 72100; 99024 ==

== ENCOUNTER 2022-05-28 12:52 | Outpatient (RCR) | payer MEDICARE, OTHER, SELFPAY | END 2022-06-15 23:59 | disposition home or self-care (01) | LOC: SPT 12:52 | PROVIDERS: PCP Family Medicine; Visit Provider Orthopaedic Surgery | DX: Z98.1 Arthrodesis status (principal) | CPT/HCPCS: 97110; 97161; 97530 ==

== ENCOUNTER 2022-06-14 13:41 | Emergency (ER) | payer MEDICARE, OTHER, SELFPAY ==
--- NOTE | 2022-06-14 14:10 | USCV_ITS ---
Obed Turner Age: 82 Gender: M : 1940 Exam Date: 06/14/2022 14:59 Ordering Phys: Kin Gan Technologist: CT Exam Location: [facility] Indication: swelling, pain HISTORY: dvt, pt on anticoagulant PROCEDURES: On the right side, the common femoral, superficial femoral, profunda femoral, popliteal, posterior tibial, greater saphenous veins and the peroneal trunk were identified and interrogated in the standard fashion. These veins were found to be easily compressible with spontaneous blood flow. In addition, the posterior tibial and peroneal trunk were evaluated. FINDINGS: pt 2 femoral veins 1 of which appears chronically occluded. Reflux noted as well CONCLUSIONS No evidence of acute right lower extremity DVT. 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 Prior GSV removal for CABG D/w Kin Gan PEDODONTIST at 1630 Alexx Brennan MD (Electronically Signed) Final Date: 14 June 2022 16:30 S
[2022-06-14 16:04] VITALS: BP 215/106; PULSE 77; RESP 17; TEMP 36.4; O2SAT 97; BMI 22.4
[2022-06-14 16:56] VITALS: BP 220/113; PULSE 71; RESP 16; O2SAT 98
--- NOTE | 2022-06-14 17:45 | W.ED.EXTPRO ---
HPI - Extremity Problem General: Chief complaint: Extremity Problem,Nontraumatic Stated complaint: possible blood clot in right leg Time Seen by Provider: 06/14/22 17:08 Source: patient and family Mode of arrival: ambulatory Limitations: no limitations History of Present Illness: Patient presents to the emergency department today accompanied by his for evaluation treatment of right calf pain. Patient states he woke up this morning and noticed onset of his pain and discomfort. Patient states he has a history of clots and was concerned as he thought the extremity looks a little swollen and came in for evaluation. Patient states that approximately 1 month ago he got a new primary care doctor and was taken off his blood pressure medications. Patient indicates he does still take Lasix but no longer takes his amlodipine or hydroxyzine. Patient takes Eliquis and aspirin daily. Patient denies chest pains, shortness of breath at rest, headache, or visual changes. 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 S/P knee surgery S/P shoulder surgery Bilateral Family History Father Lung disease Mother Cancer Sister Diabetes Denies family history of CAD (coronary artery disease) Clotting disorder Dementia Chronic kidney disease (CKD) Suicide Anesthesia complication Bleeding disorder Stroke Social History Smoking and tobacco status: former smoker Alcohol intake: never Physical Exam Const: COMMON NORMALS: no acute distress, patient oriented x3 and alert HENMT: COMMON NORMALS: normocephalic, atraumatic and hearing grossly normal bilaterally HEAD & SCALP: normocephalic and atraumatic Eye: COMMON NORMALS: Equal, round and reactive pupils present, EOMs intact bilaterally and conjunctivae normal CONJUNCTIVA: Yes conjunctivae normal PUPIL: Yes Equal, round and reactive pupils present Neck/C-Spine: COMMON NORMALS: full ROM and no JVD Lymph: LYMPHATIC: no lymphadenopathy noted Resp: COMMON NORMALS: normal respiratory effort, No retractions and No use of accessory muscles Cardio: COMMON NORMALS: no JVD and regular rate RATE: regular rate Extremity: NARRATIVE EXTREMITY EXAM: Patient's right lower extremity shows no signs of any discoloration. There is no signs of excessive swelling and no pitting. No significant size difference between right lower extremity and left. Patient is nontender to palpation to the right calf at this time. Patient is weightbearing and ambulatory with cane assist in the ER. Neuro: COMMON NORMALS: patient oriented x3 SENSORIUM/ORIENTATION: Yes alert Psych: COMMON NORMALS: mental status grossly normal, Normal thought process present, cooperative and normal affect THOUGHT PROCESS: Normal thought process present Skin: COMMON NORMALS: no rashes or lesions noted and turgor normal GENERAL SKIN EXAM: no rashes or lesions noted and turgor normal Course Vital Signs: Vital signs: Vital Signs Temperature 97.6 F 06/14/22 16:04 Pulse Rate 75 06/14/22 18:43 Respiratory Rate 16 06/14/22 18:43 Blood Pressure 143/68 06/14/22 18:43 Pulse Oximetry 98 06/14/22 18:43 Oxygen Delivery Me thod 06/14/22 18:43 MDM - Extremity (Nontraumatic) Medical Decision Making Patient presented to the emergency department today for right calf pain. With a history of blood clots he did seek evaluation for potential clot at this time. Patient is not having any symptoms of a PE however, his blood pressure is extremely high. Patient reported that he was taken off of his blood pressure medications approximately 1 month ago. He is asymptomatic of his hypertension at this time. 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 After discussing with the emergency room physician here this afternoon, patient most likely has elevated blood pressure reading as this is a chronic finding for him. Patient reports his pain 1 out of 10 upon my arrival to his bedside but his blood pressure reading was 220/115. Emergency room physician tonight and requested treatment with 0.2 of clonidine p.o. with continued monitoring of blood pressure readings. After approximately 45 minutes, patient had significant improvement in his blood pressure readings. Patient tolerated the decrease in his blood pressure without side effects such as dizziness or lightheadedness. He is requesting to go home. I spoke with Dr. 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 I also encouraged the patient to keep a blood pressure log through the weekend. Went over correct placement of feet and arms when taking blood pressures. I also encouraged him to check his heart rate during those times as well. Patient was given strict return precautions for any change in his condition including dyspnea at rest, chest pains, severe headache, blurred or change in vision, nausea or vomiting-especially if accompanied by elevated blood pressure readings. Differential Diagnosis Likely deep vein thrombosis of lower extremity; Unlikely gout, cellulitis, superficial thrombophlebitis, deep venous thrombosis of upper extremity or lower extremity edema Imaging Data US Vascular: Radiologist's impression: Final radiology read indicated no signs of any acute clot in the right lower extremity. Patient has 2 right femoral veins with 1 indicating a chronic occlusion. Patient also has a surgically absent greater saphenous vein on the right side. Discharge Plan Discharge Patient Disposition: Home Clinical Impression: Pain of right calf, Hypertension Condition: Stable Prescriptions: No Action atorvastatin 40 mg tablet 40 mg PO DAILY oxycodone 10 mg tablet 10 mg PO DAILY PRN (Reason: Pain) finasteride 5 mg tablet 5 mg PO DAILY omeprazole 20 mg capsule,delayed release(DR/EC) 20 mg PO DAILY aspirin [Adult Low Dose Aspirin] 81 mg tablet,delayed release (DR/EC) 81 mg PO DAILY melatonin 3 mg capsule 10 mg PO BEDTIME chlorthalidone 25 mg tablet 12.5 mg PO DAILY Flomax 0.4 mg capsule 0.4 mg PO BID ferrous sulfate 325 mg (65 mg iron) tablet 325 mg PO BID (DME) Lumbar Corset Brace See Rx Instructions .Route .MEDSUPPLY Qty: 1 0RF Rx Instructions: As directed (DME) Rolling Walker with Seat See Rx Instructions .Route .MEDSUPPLY Qty: 1 0RF Rx Instructions: As directed (DME) Rolling Walker See Rx Instructions .Route .MEDSUPPLY Qty: 1 0RF Rx Instructions: As directed carvedilol 3.125 mg tablet 3.125 mg PO BID Qty: 180 2RF Hold Instructions: Resume on 04/11/22. (DME) DME: Bed rail See Rx Instructions .Route .MEDSUPPLY Qty: 1 0RF Rx Instructions: As directed (DME) DME: Wedge Pillow See Rx Instructions .Route .MEDSUPPLY Qty: 1 0RF Rx Instructions: As directed furosemide 40 mg tablet 40 mg PO DAILY PRN (Reason: Edema) alprazolam 1 mg tablet 1 mg PO QID PRN (Reason: Anxiety) cholecalciferol (vitamin D3) [Vitamin D3] 25 mcg (1,000 unit) Capsule 25 mcg PO DAILY Eliquis 2.5 mg Tablet 2.5 mg PO BID cyclobenzaprine 10 mg Tablet 10 mg PO TID PRN (Reason: Muscle Pain) Senna-S 8.6-50 mg Tablet 1 tab-cap PO DAILY PRN (Reason: Constipation) sodium chloride 1 gram Tablet 1 g PO BID Qty: 30 0RF Discharge Orders: Discharge ED (Routine); Ordered 06/14/22 Ordered By: Jazmyne Fink Referrals: Ganesh Albarado MD [Primary Care Provider] - Patient Instructions: Chronic Hypertension (ED) Activity Restrictions/Additional Instructions: The ultrasound of the vascular structures in your right leg showed no signs of any new or acute blood clot development. You have a chronic occlusion of your femoral vein which showed no acute changes and appears stable today. Your blood pressure was noticeably elevated though you were asymptomatic of any chest pains, severe headache, or loss of vision. Your blood pressure responded well to treatment here in the emergency department and, after speaking to the emergency room physician here this evening, we do recommend starting back on your amlodipine as you had been previously prescribed. You had indicated you still had this medication at home to start back on however, we do recommend reaching out to your doctor first thing on Friday to discuss your visit here to the emergency department as you may require getting back on some of the medications you have previously been taken off of. I recommend keeping a blood pressure log through the weekend. Check your blood pressure at least 3-4 times a day. Be sure you are seated for 2 minutes with your feet flat on the floor in your arm elevated at the level of your heart when taking your readings. I also encourage you to check your heart rate and recorded at the same time. If you develop any chest pains, shortness of breath-especially at rest, severe headache, blurry or loss of vision, nausea or vomiting or your blood pressure becomes extremely elevated with the previously mentioned symptoms you need to return here to the emergency department. Coding Level of Care Code ED Crane Ladle Person for Milena Colvin Exam Comprehensive
[2022-06-14] MEDS: cloNIDine 0.1 mg Tablet 0.2 MG PO (17:54)
[2022-06-14 18:43] VITALS: BP 143/68; PULSE 75; RESP 16; O2SAT 98
== END 2022-06-14 19:05 | disposition home or self-care (01) ==
PROVIDERS: Emergency Provider Physician Assistant; PCP Family Medicine
DX: M79.604 Pain in right leg (principal); Z79.01 Long term (current) use of anticoagulants; Z79.82 Long term (current) use of aspirin; Z87.891 Personal history of nicotine dependence; Z95.1 Presence of aortocoronary bypass graft; I13.0 Hypertensive heart and chronic kidney disease with heart failure and stage 1 through stage 4 chronic kidney disease, or unspecified chronic kidney disease; N18.9 Chronic kidney disease, unspecified; I50.9 Heart failure, unspecified; I25.10 Atherosclerotic heart disease of native coronary artery without angina pectoris; E78.5 Hyperlipidemia, unspecified
CPT/HCPCS: 93971; 99284

== ENCOUNTER 2022-06-16 06:00 | Outpatient (RCR) | payer MEDICARE, OTHER, SELFPAY | END 2022-06-29 12:25 | disposition home or self-care (01) | LOC: SPT 06:00 | PROVIDERS: PCP Family Medicine; Visit Provider Orthopaedic Surgery | DX: Z98.1 Arthrodesis status (principal) | CPT/HCPCS: 97110 ==

== ENCOUNTER → 2022-06-25 13:35 | Outpatient (BNVA) | payer MEDICARE, OTHER, SELFPAY | PROVIDERS: PCP Family Medicine; Visit Provider Orthopaedic Surgery | DX: Z47.89 Encounter for other orthopedic aftercare (principal); Z98.1 Arthrodesis status | CPT/HCPCS: 72100; 99024 ==

== ENCOUNTER → 2022-08-26 15:06 | Outpatient (BNVA) | payer MEDICARE, OTHER, SELFPAY | PROVIDERS: PCP Family Medicine; Visit Provider Nurse Practitioner Family | DX: I13.0 Hypertensive heart and chronic kidney disease with heart failure and stage 1 through stage 4 chronic kidney disease, or unspecified chronic kidney disease (principal); N18.9 Chronic kidney disease, unspecified; I50.32 Chronic diastolic (congestive) heart failure; I25.10 Atherosclerotic heart disease of native coronary artery without angina pectoris; Z87.891 Personal history of nicotine dependence; Z95.1 Presence of aortocoronary bypass graft | CPT/HCPCS: 99214 ==

== ENCOUNTER → 2022-09-10 12:59 | Outpatient (BNVA) | payer MEDICARE, OTHER, SELFPAY | PROVIDERS: PCP Family Medicine; Visit Provider Orthopaedic Surgery | DX: M47.816 Spondylosis without myelopathy or radiculopathy, lumbar region (principal); M41.9 Scoliosis, unspecified; Z98.1 Arthrodesis status | CPT/HCPCS: 72100; 99213 ==

== ENCOUNTER 2022-09-25 14:59 | Outpatient (CLI) | payer MEDICARE, OTHER, SELFPAY ==
--- NOTE | 2022-09-25 15:11 | CT_ITS ---
WS: [id number] CT HEAD TECHNIQUE: Noncontrast CT of the head obtained from the skullbase to the vertex. CLINICAL INFORMATION: CHECK FOR METAL COMPARISON: 9 ,018 DLP: 1182.[address] scans at [facility] use at least one of these dose optimization techniques: automated e xposure control; mA and/or kV adjustment per patient size (includes targeted exams where dose is matc hed to clinical indication); or iterative reconstruction. FINDINGS: No evidence of intracranial hemorrhage or mass effect. Ventricular system and basal cisterns are barnett nt. Moderate small vessel changes with moderate parenchymal volume loss. Vascular calcification. No extra-axial fluid collections. No evidence of mass or mass effect. Paranasal sinuses and mastoid air cells are well aerated. .Normal visualized soft tissues. No radiopa que debris in the scalp. CT/CT head wo con* [id number] IMPRESSION: 1. No evidence of intracranial hemorrhage or mass effect. 2. Moderate small vessel changes with moderate parenchymal volume loss progres sed compared to 2018. 3. Vascular calcification. 4. Paranasal sinuses and mastoid air cells well aerated. 5. No radiopaque debris in the scalp. 6. No acute intracranial findings.
== END 2022-09-25 15:00 | disposition home or self-care (01) ==
LOC: RAD 15:00
PROVIDERS: PCP Family Medicine; Visit Provider Emergency Medicine Emergency Medical Services
DX: Z01.89 Encounter for other specified special examinations (principal)
CPT/HCPCS: 70450

== ENCOUNTER 2022-10-17 12:38 | Outpatient (CLI) | payer MEDICARE, OTHER, SELFPAY ==
--- NOTE | 2022-10-17 13:10 | MM_ITS ---
WS: [id number] BILATERAL 3D TOMOSYNTHESIS DIGITAL DIAGNOSTIC MAMMOGRAPHY WITH CAD CLINICAL INFORMATION: BREAST PAIN/LT LUMP HISTORY: LEFT palpable lump COMPARISON: 2020 TECHNIQUE: Bilateral CC, MLO, and ML views. FINDINGS: Scattered fibroglandular densities bilaterally. Dense parenchymal tissue deep to the areola bilateral ly. Deep to the palpable marker, LEFT breast, there is dense parenchymal tissue. This is similar in appea marlene to 2020. Ultrasound described below. ULTRASOUND BREAST LEFT TECHNIQUE: Ultrasound left breast focused area of concern. CLINICAL INFORMATION: BREAST PAIN/LT LUMP COMPARISON: 2020 FINDINGS: Dense shadowing parenchymal tissue deep to the LEFT areola. This is in the area of palpable concern. This is similar in appearance 2020 compatible with gynecomastia. No suspicious lesions to target for biopsy. Comparison RIGHT breast areola demonstrates mild gynecomastia unchanged in appearance compared to pre vious MM/[place] [id number] IMPRESSION: BI-RADS: 2-Benign FOLLOW UP: See Report
== END 2022-10-17 12:39 | disposition home or self-care (01) ==
LOC: RAD 12:44
PROVIDERS: PCP Family Medicine; Visit Provider Family Medicine
DX: N64.4 Mastodynia (principal); N63.20 Unspecified lump in the left breast, unspecified quadrant
CPT/HCPCS: 76642; 77062; G0279

== ENCOUNTER → 2022-12-19 13:48 | Outpatient (BNVA) | payer MEDICARE, OTHER, SELFPAY | PROVIDERS: PCP Family Medicine; Visit Provider Orthopaedic Surgery | DX: Z98.1 Arthrodesis status (principal) | CPT/HCPCS: 72100; 99213 ==

== ENCOUNTER → 2023-02-26 15:08 | Outpatient (BNVA) | payer MEDICARE, OTHER, SELFPAY | PROVIDERS: PCP Family Medicine; Visit Provider Internal Medicine Cardiovascular Disease | DX: I25.10 Atherosclerotic heart disease of native coronary artery without angina pectoris (principal); Z95.1 Presence of aortocoronary bypass graft; Z79.01 Long term (current) use of anticoagulants; R06.02 Shortness of breath; R94.39 Abnormal result of other cardiovascular function study; I27.82 Chronic pulmonary embolism; I11.0 Hypertensive heart disease with heart failure; I50.32 Chronic diastolic (congestive) heart failure; D64.9 Anemia, unspecified; Z87.891 Personal history of nicotine dependence; T14.8XXA Other injury of unspecified body region, initial encounter; X58.XXXA Exposure to other specified factors, initial encounter | CPT/HCPCS: 36415; 80048; 85025; 99214 ==

== ENCOUNTER → 2023-08-19 09:19 | Outpatient (BNVA) | payer MEDICARE, OTHER, SELFPAY | PROVIDERS: PCP Family Medicine; Referring Provider Family Medicine; Visit Provider Specialist | DX: R20.0 Anesthesia of skin (principal); R20.2 Paresthesia of skin; R20.9 Unspecified disturbances of skin sensation; G62.89 Other specified polyneuropathies | CPT/HCPCS: 95910 ==

== ENCOUNTER → 2023-09-11 14:54 | Outpatient (BNVA) | payer MEDICARE, OTHER, SELFPAY | PROVIDERS: PCP Family Medicine; Visit Provider Internal Medicine Cardiovascular Disease | DX: I25.118 Atherosclerotic heart disease of native coronary artery with other forms of angina pectoris (principal); I13.0 Hypertensive heart and chronic kidney disease with heart failure and stage 1 through stage 4 chronic kidney disease, or unspecified chronic kidney disease; N18.9 Chronic kidney disease, unspecified; I50.32 Chronic diastolic (congestive) heart failure; I95.0 Idiopathic hypotension; I27.82 Chronic pulmonary embolism; Z87.891 Personal history of nicotine dependence; Z79.01 Long term (current) use of anticoagulants | CPT/HCPCS: 99214 ==

== ENCOUNTER 2023-11-28 09:42 | Emergency (ER) | payer MEDICARE, OTHER, SELFPAY ==
[2023-11-28 09:45] VITALS: BP 152/77; PULSE 77; RESP 19; TEMP 37; O2SAT 94
--- NOTE | 2023-11-28 09:50 | ECG_ITS ---
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 Measurements Intervals [place] Rate: 82 P: 57 MI: 182 QRS: 56 QRSD: 89 T: -28 QT: 368 QTc: 430 Interpretive Statements SINUS RHYTHM ST DEVIATION AND MODERATE T-WAVE ABNORMALITY, CONSIDER INFERIOR ISCHEMIA [-0.1+ mV T-WAVE IN II/aVF] Compared to ECG 03/25/2022 14:14:20 Possible ischemia now present T-wave abnormality still present Electronically Signed On 11-28-2023 19:04:51 CDT by Segundo Clemente M.D. [id number]
--- NOTE | 2023-11-28 09:53 | XRR_ITS ---
PROCEDURE INFORMATION: Exam: XR Chest Exam date and time: 11/28/2023 10:32 AM Age: 83 years old Clinical indication: Cough and fever and shortness of breath; Prior surgery; Surgery date: 6+ months; Surgery type: Spinal clips and fusion of l3-s1. ; Additional info: Fever, cough TECHNIQUE: Imaging protocol: Radiologic exam of the chest. Views: 1 view. COMPARISON: CR XR chest 2V* [id number] 11/24/2023 4:27 PM FINDINGS: Lungs: There has been development of a mild left basilar opacity. The right lung is clear Pleural spaces: There is a questionable small left pleural effusion. Heart/Mediastinum: Unremarkable. No cardiomegaly. Bones/joints: Postsurgical changes of median sternotomy and CABG are noted. There are remote right rib fracture deformities. XR/XR chest 1V portable [id number] IMPRESSION: 1. Development of a mild left basilar opacity suspicious for atelectasis however pneumonia is not excluded. 2. Possible small left pleural effusion
--- NOTE | 2023-11-28 09:59 | ED_ITS ---
HPI - SOB/Dyspnea 2 General: Chief Complaint: Shortness of Breath/Dyspnea Stated Complaint: sob, chest pain, weakness Time Seen by Provider: 11/28/23 09:51 History of Present Illness: HPI Narrative: 83-year-old man with a history of hyperl ipidemia, BPH, GERD, coronary artery disease status post CABG, anxiety, depression, chronic kidney disease, and atrial fibrillation just recently taken off of his Eliquis who presents to the emergency room with worsening weakness. He had had some cough and worsening shortness of breath. Was diagnosed with pneumonia by his primary care and started on azithromycin. They come to the emergency room because he has become more weak. And more short of breath. No altered mental status. No focal motor deficits. No nausea or vomiting. No abdominal pain. He has been having some pleuritic chest pain. Review of Systems 2 Narrative: Constitutional symptoms: Negative except as documented in HPI. Skin symptoms: Negative except as documented in HPI. Eye symptoms: Negative except as documented in HPI. ENMT symptoms: Negative except as documented in HPI. Respiratory symptoms: Negative except as documented in HPI. Cardiovascular symptoms: Negative except as documented in HPI. Gastrointestinal symptoms: Negative except as documented in HPI. Genitourinary symptoms: Negative except as documented in HPI. Musculoskeletal symptoms: Negative except as documented in HPI. Neurologic symptoms: Negative except as documented in HPI. Psychiatric symptoms: Negative except as documented in HPI. Endocrine symptoms: Negative except as documented in HPI. PFSH ED 2 PFSH: Medical History Atherosclerosis of coronary artery CABG 07/21/2018 GERD (gastroesophageal reflux disease) Hyperlipidemia BPH (benign prostatic hyperplasia) Chronic kidney disease Coronary artery disease Anxiety Depression Anemia CHF (congestive heart failure) Pulmonary embolism HTN (hypertension) Surgical History S/P shoulder surgery Bilateral Previous back surgery X2 S/P knee surgery S/P CABG (coronary artery bypass graft) 07/21/2018 Family History Father Lung disease Mother Cancer Sister Diabetes Denies family history of CAD (coronary artery disease) Clotting disorder Dementia Chronic kidney disease (CKD) Suicide Anesthesia complication Bleeding disorder Stroke Social History Smoking and tobacco/nicotine status: former use of tobacco/nicotine Alcohol intake: never Substance/Drug Use: never Physical Exam 2 Narrative: EXAM NARRATIVE: General: Alert, no acute distress. Skin: Warm, dry. Head: Normocephalic, atraumatic. Neck: Supple, trachea midline. Eye: Extraocular movements are intact. Ears, nose, mouth and throat: Tacky oral mucosa Cardiovascular: Regular, Normal peripheral perfusion. Respiratory: Lungs are clear to auscultation, respirations are non-labored, breath sounds are equal, Symmetrical chest wall expansion. Gastrointestinal: Soft, Nontender, Non distended, Normal bowel sounds. Musculoskeletal: Normal ROM, no deformity. Neurological: Alert and oriented, No focal neurological deficit observed. Psychiatric: Cooperative, appropriate mood & affect. Course 2 Vital Signs: Vital signs: Vital Signs Temperature 98.6 F 11/28/23 09:45 Pulse Rate 72 11/28/23 12:17 Respiratory Rate 20 H 11/28/23 11:00 Blood Pressure 144/67 11/28/23 12:17 Pulse Oximetry 93 11/28/23 12:17 Oxygen Delivery Me thod Room Air 11/28/23 11:00 MDM - SOB/Dyspnea Medical Decision Making Medical decision making: Differential diagnosis for patient presenting with generalized weakness including but not limited to and based on the above HPI, review of systems and physical exam: Sepsis. Dehydration. Renal failure. Electrolyte abnormalities. Anemia. Congestive heart failure. Hypotension. Coronary syndrome. Hepatitis. Cirrhosis. Infections such as pneumonia, urinary tract infection, [place] illness, Cellulitis, Viral infections including influenza and Covid-19. Workup: labwork and lab/exam driven imaging ordered to evaluate, rule in and rule out above pathologies. EKG: Time 9:50 AM. Rate 82 normal sinus rhythm, diffuse ST depression. This appears unchanged as compared to EKG from 03/25/2022, no ectopy, normal TX & QRS intervals, This was reviewed and interpreted by myself the ER physician at 9:51 AM Chest x-ray: Left lower infiltrate, likely pneumonia. Sternotomy wires are in place. No cardiomegaly. No pneumothorax.. This was reviewed and interpreted by myself the ER physician. Lab Review: Laboratory results were reviewed and interpreted by myself the emergency room physician. Some mild leukocytosis. White count is 13.4. BUN and creatinine are slightly elevated above normal at 29 and 1.7. Pro-Ricardo is slightly elevated at 0.6. Troponin is 33. This is likely secondary to his chronic renal insufficiency. Urinalysis is clear. Lactic acid is normal at 1.5. No change in second markers. I reviewed the patient's medical record. Reexamination: Patient remained stable. He does not have any increased work of breathing. Not requiring any oxygen. No altered mental status. No focal motor deficits. I discussed plans to change his antibiotics to doxycycline and we will attempt treatment at home. If he worsens he can come back to the emergency room Prolonged emergency room stay: 2-hour cardiac markers were obtained. Assessment and plan: Community-acquired bacterial pneumonia ?IV doxycycline and IV Solu-Medrol in the emergency room. - Discharged home - Discussed findings and plan with patient. Answered any questions. - All laboratory values were reviewed and interpreted personally by myself, the ER physician - All imaging was reviewed and interpreted personally by myself, the ER physician. - Evaluation and treatment of this problem were appropriate in the emergency setting Lab Data 11/28/23 09:58 11/28/23 09:58 Labs/Radiology: Radiology Impressions Chest X-Ray 11/28/23 09:53 IMPRESSION: 1. Development of a mild left basilar opacity suspicious for atelectasis however pneumonia is not excluded. 2. Possible small left pleural effusion Laboratory Results WBC 13.36 10^3/uL (3.29-11.43) H 11/28/23 09:58 RBC 4.28 10^6/uL (3.85-5.65) 11/28/23 09:58 Hgb 12.80 g/dL (11.27-16.99) 11/28/23 09:58 Hct 38.7 % (37-53) 11/28/23 09:58 MCV 90.4 fl (82-101) 11/28/23 09:58 MCH 29.9 pg (27-33) 11/28/23 09:58 MCHC 33.1 g/dL (30-55) 11/28/23 09:58 RDW 13.3 % (12.1-15.1) 11/28/23 09:58 Plt Count 172 10^3/cmm (157-399) 11/28/23 09:58 MPV 9.6 fL (7.4-10.4) 11/28/23 09:58 Neut % (Auto) 77.5 % 11/28/23 09:58 Lymph % (Auto) 11.8 % 11/28/23 09:58 King % (Auto) 9.5 % 11/28/23 09:58 Eos % (Auto) 0.8 % 11/28/23 09:58 Baso % (Auto) 0.1 % 11/28/23 09:58 Neut # (Auto) 10.34 10^3/uL (1.8-7.7) H 11/28/23 09:58 Lymph # (Auto) 1.6 10^3/uL (0.8-4.8) 11/28/23 09:58 King # (Auto) 1.3 10^3/uL (0.2-0.9) H 11/28/23 09:58 Eos # (Auto) 0.1 10^3/uL (0.0-0.8) 11/28/23 09:58 Baso # (Auto) 0.0 10^3/uL (0.0-0.1) 11/28/23 09:58 Nucleated RBC % (auto) 0 % 11/28/23 09:58 Nucleated RBCs # 0.0 /100WBC 11/28/23 09:58 Sodium 133 mmol/L (136-145) L 11/28/23 09:58 Potassium 4.2 mmol/L (3.5-5.1) 11/28/23 09:58 Chloride 99 mmol/L (98-107) 11/28/23 09:58 Carbon Dioxide 21 mmol/L (22-29) L 11/28/23 09:58 Anion Gap 17.2 (5-19) 11/28/23 09:58 BUN 29 mg/dL (8-23) H 11/28/23 09:58 Creatinine 1.7 mg/dL (0.7-1.2) H 11/28/23 09:58 GFR Calculation Not Reportable 11/28/23 09:58 Glucose 109 mg/dL (65-115) 11/28/23 09:58 Calculated Osmolality 282 mOsm/kg (285-295) L 11/28/23 09:58 Lactic Acid 1.5 mmol/L (0.5-2.2) 11/28/23 09:58 Calcium 8.7 mg/dL (8.5-10.5) 11/28/23 09:58 Total Bilirubin 1.2 mg/dL (0.15-1.2) 11/28/23 09:58 AST 16 U/L (0-40) 11/28/23 09:58 ALT 11 U/L (0-41) 11/28/23 09:58 Alkaline Phosphatase 110 U/L (40-130) 11/28/23 09:58 Troponin T Baseline 33 ng/L (0-15) H 11/28/23 09:58 Troponin T 120 Minute 28.76 ng/L (0-15) H 11/28/23 11:48 Delta Troponin T -4.24 ABS# (0-10) L 11/28/23 11:48 C-Reactive Protein 104.5 mg/L (0.0-4.9) H 11/28/23 09:58 Total Protein 6.1 g/dL (6.6-8.7) L 11/28/23 09:58 Albumin 3.5 g/dL (3.5-5.2) 11/28/23 09:58 Globulin 2.6 g/dL (1.3-4.6) 11/28/23 09:58 Procalcitonin 0.64 ng/mL (0-0.5) H 11/28/23 09:58 Urine Color Yellow (Yellow) 11/28/23 10:58 Urine Appearance Clear (CLEAR) 11/28/23 10:58 Urine pH 5 (5-7) 11/28/23 10:[address] 1.020 (1.005-1.030) 11/28/23 10:58 Urine Protein Trace (Negative) 11/28/23 10:58 Urine Glucose (UA) Norm (Normal) 11/28/23 10:58 Urine Ketones Negative (Negative) 11/28/23 10:58 Urine Blood Neg (Negative) 11/28/23 10:58 Urine Nitrate Negative (Negative) 11/28/23 10:58 Urine Bilirubin Neg (Negative) 11/28/23 10:58 Urine Urobilinogen 1 mg/dL (Negative) H 11/28/23 10:58 Ur Leukocyte Esterase Negative (Negative) 11/28/23 10:58 Urine RBC Rare /hpf (0-2) 11/28/23 10:58 Urine WBC None /hpf (0-5) 11/28/23 10:58 Ur Squamous Epith Cells 0-4 /hpf (0-5) H 11/28/23 10:58 Amorphous Sediment Not Reportable 11/28/23 10:58 Urine Bacteria None /hpf (NONE) 11/28/23 10:58 All radiology interpretation(s) finalized by discharge Discharge Plan Discharge Patient Disposition: Home Clinical Impression: Community acquired pneumonia Qualifiers: Laterality: left Lung location: lower lobe of lung Qualified Code(s): J18.9 - Pneumonia, unspecified organism Condition: Stable Prescriptions: New doxycycline hyclate 100 mg capsule 100 mg PO BID 7 Days Qty: 14 0RF dexamethasone 6 mg tablet 6 mg PO DAILY 5 Days Qty: 5 0RF No Action atorvastatin 40 mg tablet 40 mg PO DAILY finasteride 5 mg tablet 5 mg PO DAILY omeprazole 20 mg capsule,delayed release(DR/EC) 20 mg PO DAILY (DME) Lumbar Corset Brace See Rx Instructions .Route .MEDSUPPLY Qty: 1 0RF Rx Instructions: As directed (DME) Rolling Walker with Seat See Rx Instructions .Route .MEDSUPPLY Qty: 1 0RF Rx Instructions: As directed (DME) Rolling Walker See Rx Instructions .Route .MEDSUPPLY Qty: 1 0RF Rx Instructions: As directed zolpidem 5 mg tablet 5 mg PO BEDTIME (DME) DME: Bed rail See Rx Instructions .Route .MEDSUPPLY Qty: 1 0RF Rx Instructions: As directed (DME) DME: Wedge Pillow See Rx Instructions .Route .MEDSUPPLY Qty: 1 0RF Rx Instructions: As directed amlodipine 5 mg tablet 5 mg PO DAILY Qty: 30 5RF alprazolam 1 mg tablet 1 mg PO QID PRN (Reason: Anxiety) carvedilol 3.125 mg tablet 3.125 mg PO BID nitroglycerin 0.4 mg tablet, sublingual See Rx Instructions .ROUTE .COMPLEX Rx Instructions: PLACE 1 TABLET UNDER TONGUE EVERY 5 MINS, UP TO 3 DOSES NEEDED FOR CHEST PAIN lactulose 10 gram/15 mL solution 15 ml PO DAILY PRN (Reason: Constipation) diclofenac sodium 1 % Gel 4 g TOPICAL QID PRN (Reason: Pain) Rx Instructions: apply to single knee, ankle, foot; for foot includes sole/toes/top of foot oxycodone 10 mg Tablet 10 mg PO Q4H PRN (Reason: Pain) Rx Instructions: MAX 4 PER DAY Discharge Orders: Discharge ED (Routine); Ordered 11/28/23 Ordered By: Mel Reddy Referrals: Ganesh Albarado MD [Primary Care Provider] - 1-3 days Discharge Diet: Usual diet Discharge Activity: Increase activity as tolerated Patient Instructions: Community Acquired Pneumonia (ED) Activity Restrictions/Additional Instructions: Thank you for choosing [facility] for your healthcare needs today. Please realize this is an emergency room and that we are providing you with a medical screening exam and this may not be complete and all inclusive of all the testing and or work up that you may need to determine your ailment or severity of your illness. You have been screened and evaluated and felt safe for discharge. Health conditions do change or evolve sometimes and as such it is important that you follow up with your Primary Doctor to be re checked, 3-5 days is a general good time frame for follow up. You are always welcome to return to the ED for re assessment if your symptoms are worsening or you have new concerns Coding Level of Care Code ED Industrial Designer for Milena Colvin
[2023-11-28 10:04] VITALS: BP 152/77; PULSE 82; O2SAT 93
[2023-11-28 10:15] LABS: Basophils % 0.1 %; Eosinophils # 0.1 10^3/uL (0.0-0.8); Eosinophils % 0.8 %; Hematocrit 38.7 % (37-53); Lymphocytes # 1.6 10^3/uL (0.8-4.8); Lymphocytes % 11.8 %; Mean Corpuscular HGB Conc 33.1 g/dL (30-55); Mean Corpuscular Hemoglobin 29.9 pg (27-33); Mean Corpuscular Volume 90.4 fl (82-101); Mean Platelet Volume 9.6 fL (7.4-10.4); Monocytes # 1.3 10^3/uL (0.2-0.9); Monocytes % 9.5 %; Neutrophils # 10.34 10^3/uL (1.8-7.7); Neutrophils % 77.5 %; Nucleated Red Blood Cells % 0 %; Platelet Count 172 10^3/cmm (157-399); Red Blood Count 4.28 10^6/uL (3.85-5.65); Red Cell Distribution Width 13.3 % (12.1-15.1); White Blood Count 13.36 10^3/uL (3.29-11.43)
[2023-11-28 10:37] LABS: Troponin(5th) Baseline 33 ng/L (0-15)
[2023-11-28 10:40] LABS: Alanine Aminotransferase 11 U/L (0-41); Albumin Level 3.5 g/dL (3.5-5.2); Alkaline Phosphatase 110 U/L (40-130); Anion Gap 17.2 (5-19); Aspartate Amino Transferase 16 U/L (0-40); Blood Urea Nitrogen 29 mg/dL (8-23); C Reactive Protein 104.5 mg/L (0.0-4.9); Calcium 8.7 mg/dL (8.5-10.5); Carbon Dioxide 21 mmol/L (22-29); Chloride 99 mmol/L (98-107); Creatinine Clr Calc Pharmacy 36.2085; Globulin 2.6 g/dL (1.3-4.6); Glucose 109 mg/dL (65-115); Osmolality Calculated 282 mOsm/kg (285-295); Potassium 4.2 mmol/L (3.5-5.1); Sodium 133 mmol/L (136-145); Total Bilirubin 1.2 mg/dL (0.15-1.2); Total Protein 6.1 g/dL (6.6-8.7)
[2023-11-28 10:41] LABS: Lactic Sepsis W/Reflex 1.5 mmol/L (0.5-2.2)
[2023-11-28 10:45] LABS: Procalcitonin 0.64 ng/mL (0-0.5)
[2023-11-28 11:00] VITALS: BP 152/77; PULSE 81; RESP 20; O2SAT 94
[2023-11-28 11:14] LABS: Bilirubin Urine Neg (Negative); Blood Urine Neg (Negative); Glucose Urine UA Norm (Normal); Ketones Urine Negative (Negative); Leukocyte Esterase Urine Negative (Negative); Nitrate Urine Negative (Negative); Protein Urine Trace (Negative); Urine Appearance Clear (CLEAR); Urine Color Yellow (Yellow); Urobilinogen Urine 1 mg/dL (Negative); pH Urine 5 (5-7)
[2023-11-28 11:16] LABS: Add Urine Culture? No; RBC Urine RARE /hpf (0-2); Squamous Epithelial Cell Urine 0-4 /hpf (0-5)
[2023-11-28] MEDS: methylPREDNISolone sod succ 125 mg/2 mL INJ IVP (11:31)
[2023-11-28] MEDS: doxycycline 100 MG in sodium chloride 0.9% (plus) 100 ML IV (11:32)
[2023-11-28 12:14] LABS: Troponin 5 2HR 28.76 ng/L (0-15)
[2023-11-28 12:15] LABS: Troponin 5 2HR Delta -4.24 ABS# (0-10)
[2023-11-28 12:17] VITALS: BP 144/67; PULSE 72; O2SAT 93
[2023-11-28 13:53] VITALS: BP 144/67; PULSE 72; RESP 20; TEMP 37; O2SAT 93
== END 2023-11-28 13:54 | disposition home or self-care (01) ==
PROVIDERS: Emergency Provider Emergency Medicine; PCP Family Medicine
DX: J18.9 Pneumonia, unspecified organism (principal); Z87.891 Personal history of nicotine dependence; Z95.1 Presence of aortocoronary bypass graft; I25.10 Atherosclerotic heart disease of native coronary artery without angina pectoris; E78.5 Hyperlipidemia, unspecified; I13.0 Hypertensive heart and chronic kidney disease with heart failure and stage 1 through stage 4 chronic kidney disease, or unspecified chronic kidney disease; N18.9 Chronic kidney disease, unspecified; I50.9 Heart failure, unspecified
CPT/HCPCS: 36415; 71045; 80053; 81001; 83605; 84145; 84484; 85025; 86140; 87040; 93005; 96365; 96375; 99285; J2919; J3490

== ENCOUNTER 2024-01-12 16:01 | Outpatient (CLI) | payer MEDICARE, OTHER, SELFPAY ==
--- NOTE | 2024-01-12 16:11 | CT_ITS ---
WS: [id number] CT LUMBAR SPINE, noncontrast. HISTORY: LOW BACK PAIN TECHNIQUE: Contiguous 2.0 mm axial imaging are performed. Sagittal and coronal reformats are submitte d and reviewed. All CT scans at [facility] use at least one of these dose optimization techni ques: automated exposure control; mA and/or kV adjustment per patient size (includes targeted exams w here dose is matched to clinical indication); or iterative reconstruction. IV contrast: None DLP: 362.57 mGy.cm COMPARISON: 01/27/2022 Patient is status post posterior lumbosacral posterior fusion. Posterior fusion extends from L3-S2. T here is a additional screw fusion across the SI joints. Disc spaces are all narrowed. 5 mm retrolisth esis of L2. New mild concavity superior endplate of L4 since 01/27/2022. This fracture did appear to b e present on a lumbar spine of 12/19/2022. L1-2: Osteophytic ridging and disc bulging encroaching upon the ventral thecal sac. Mild central with bilateral subarticular recess encroachment. L2-3: Osteophytic ridging with marked facet disease. Shallow LEFT foraminal disc protrusion. Osteophy [place] encroach upon the central canal. Mild to moderate central with subarticular recess and mild tanya inal stenosis. Similar to the prior study. L3-4: Artifact from the patient's posterior fusion. Large posterior laminectomy defect. No stenosis. L4-5: Mild disc bulging with a large posterior laminectomy defect. No stenosis. L5-S1: Osteophytic ridging with a large posterior laminectomy defect. No central stenosis. Small oste ophytes encroach into the foramina. No lucency identified surrounding the screws. Moderate atherosclerosis abdominal aorta. Splenic artery calcifications. Severe atrophy RIGHT kidney, no change. CT/CT lumbar spine wo con* [id number] IMPRESSION: 1. Status post posterior lumbosacral fusion from L3-S2 with large posterior la minectomy defects from L3-L5. 2. No hardware fracture or loosening identified. 3. Advanced degenerative disc disease and facet joint arthritis. 4. L2-3: Mild to moderate central with subarticular recess and mild foraminal stenosis. No significant progression. 5. Mild anterior compression deformity of L4 was present on the radiograph of 12/19/2022.
== END 2024-01-12 16:02 | disposition home or self-care (01) ==
LOC: RAD 16:02
PROVIDERS: PCP Family Medicine; Visit Provider Family Medicine
DX: Z98.1 Arthrodesis status (principal); M96.1 Postlaminectomy syndrome, not elsewhere classified; M25.78 Osteophyte, vertebrae; M51.36 Other intervertebral disc degeneration, lumbar region; M48.061 Spinal stenosis, lumbar region without neurogenic claudication; M47.816 Spondylosis without myelopathy or radiculopathy, lumbar region
CPT/HCPCS: 72131

== ENCOUNTER 2024-02-10 16:30 | Emergency (ER) | payer OTHER, SELFPAY ==
--- NOTE | 2024-02-10 16:38 | ECG_ITS ---
[facility] Test Date: 2024-02-10 Pat Name: Obed Turner Department: Room: Gender: Male Private Investigator: : 1940 Requested By: Candie Gooden Order Number: [id number] Shane MD: Steven Grimm M.D. Measurements Intervals [place] Rate: 61 P: 66 MT: 195 QRS: 37 QRSD: 86 T: -60 QT: 408 QTc: 413 Interpretive Statements SINUS RHYTHM SEPTAL MYOCARDIAL INFARCTION , OF INDETERMINATE AGE [40+ ms Q WAVE IN V1/V2] MODERATE T-WAVE ABNORMALITY, CONSIDER INFERIOR ISCHEMIA [-0.1+ mV T-WAVE IN II/aVF] Compared to ECG 11/28/2023 09:50:48 Myocardial infarct finding now present T-wave abnormality still present Possible ischemia still present Electronically Signed On 02-11-2024 8:04:01 CDT by Steven Grimm M.D. [email or web address]
[2024-02-10 16:45] VITALS: BP 133/69; PULSE 52; RESP 16; TEMP 36.7; O2SAT 96
[2024-02-10 17:36] LABS: Alanine Aminotransferase 9 U/L (0-41); Alkaline Phosphatase 124 U/L (40-130); Aspartate Amino Transferase 18 U/L (0-40); Blood Urea Nitrogen 23 mg/dL (8-23); Calcium 9.5 mg/dL (8.5-10.5); Carbon Dioxide 27 mmol/L (22-29); Chloride 102 mmol/L (98-107); Creatinine Clr Calc Pharmacy 31.7709; Glucose 86 mg/dL (65-115); Osmolality Calculated 291 mOsm/kg (285-295); Sodium 139 mmol/L (136-145); Total Bilirubin 0.4 mg/dL (0.15-1.2)
[2024-02-10 17:44] LABS: Magnesium 2.2 mg/dL (1.7-2.3)
[2024-02-10 17:45] LABS: Lactic Sepsis W/Reflex 1.3 mmol/L (0.5-2.2)
[2024-02-10 17:46] LABS: Basophils # 0.1 10^3/uL (0.0-0.1); Basophils % 0.5 %; Eosinophils # 0.5 10^3/uL (0.0-0.8); Eosinophils % 4.9 %; Hematocrit 44.9 % (37-53); Lymphocytes # 1.8 10^3/uL (0.8-4.8); Lymphocytes % 18.2 %; Mean Corpuscular HGB Conc 30.7 g/dL (30-55); Mean Corpuscular Hemoglobin 28.6 pg (27-33); Mean Platelet Volume 9.3 fL (7.4-10.4); Monocytes # 0.8 10^3/uL (0.2-0.9); Monocytes % 8.2 %; Neutrophils # 6.55 10^3/uL (1.8-7.7); Neutrophils % 67.9 %; Nucleated Red Blood Cells % 0 %; Platelet Count 232 10^3/cmm (157-399); Red Blood Count 4.83 10^6/uL (3.85-5.65); Red Cell Distribution Width 14.1 % (12.1-15.1); White Blood Count 9.65 10^3/uL (3.29-11.43)
[2024-02-10 17:50] VITALS: BP 168/76; PULSE 60; O2SAT 94
[2024-02-10 18:00] VITALS: BP 144/70; PULSE 75; O2SAT 96
--- NOTE | 2024-02-10 18:02 | ED_ITS ---
HPI - Arrhythmia/Palpitations 2 General: Chief Complaint: Arrhythmia/Palpitations Stated Complaint: [facility] Time Seen by Provider: 02/10/24 17:20 History of Present Illness: 84-year-old man with a history of baig ry artery disease, GERD, hyperlipidemia hypertension and CHF and BPH who presents to the emergency room with fluctuating blood pressures. He had gone to the OR with no tilted him his blood pressure dropped into the 80s from the 150s when he stood up. Otherwise no major complaints. No chest pain. No shortness of breath. No abdominal pain. Related Data Home Medications Medication Instructions Recorded Confirmed atorvastatin 40 mg tablet 40 mg PO DAILY 07/01/19 11/28/23 finasteride 5 mg tablet 5 mg PO DAILY 07/01/19 11/28/23 omeprazole 20 mg capsule,delayed 20 mg PO DAILY 07/01/19 11/28/23 release alprazolam 1 mg tablet 1 mg PO QID PRN Anxiety 03/25/22 11/28/23 zolpidem 5 mg tablet 5 mg PO BEDTIME 09/11/23 11/28/23 carvedilol 3.125 mg tablet 3.125 mg PO BID 11/28/23 11/28/23 diclofenac sodium 1 % topical gel 4 g topical QID PRN Pain 11/28/23 11/28/23 lactulose 10 gram/15 mL oral 15 ml PO DAILY PRN Constipation 11/28/23 11/28/23 solution nitroglycerin 0.4 mg sublingual See Rx Instructions .Route .COMPLEX 11/28/23 11/28/23 tablet oxycodone 10 mg tablet 10 mg PO Q4H PRN Pain 11/28/23 11/28/23 Previous Rx's Medication Instructions Recorded Lumbar Corset Brace #1 ea 02/05/22 DME: Bed rail #1 ea 02/13/22 DME: Wedge Pillow #1 ea 02/13/22 Rolling Walker #1 ea 05/13/22 Rolling Walker with Seat #1 ea 05/14/22 amlodipine 5 mg tablet 5 mg PO DAILY #30 tabs 05/13/23 Allergies Allergy/AdvReac Type Severity Reaction Status Date / Time horse serum Allergy Severe Unknown Uncoded 02/10/24 16:50 Review of Systems 2 Narrative: Constitutional symptoms: Negative except as documented in HPI. Skin symptoms: Negative except as documented in HPI. Eye symptoms: Negative except as documented in HPI. ENMT symptoms: Negative except as documented in HPI. Respiratory symptoms: Negative except as documented in HPI. Cardiovascular symptoms: Negative except as documented in HPI. Gastrointestinal symptoms: Negative except as documented in HPI. Genitourinary symptoms: Negative except as documented in HPI. Musculoskeletal symptoms: Negative except as documented in HPI. Neurologic symptoms: Negative except as documented in HPI. Psychiatric symptoms: Negative except as documented in HPI. Endocrine symptoms: Negative except as documented in HPI. PFSH ED 2 PFSH: Medical History Atherosclerosis of coronary artery CABG 07/21/2018 GERD (gastroesophageal reflux disease) Hyperlipidemia BPH (benign prostatic hyperplasia) Chronic kidney disease Coronary artery disease Anxiety Depression Anemia CHF (congestive heart failure) Pulmonary embolism HTN (hypertension) Surgical History S/P shoulder surgery Bilateral Previous back surgery X2 S/P knee surgery S/P CABG (coronary artery bypass graft) 07/21/2018 Family History Father Lung disease Mother Cancer Sister Diabetes Denies family history of CAD (coronary artery disease) Clotting disorder Dementia Chronic kidney disease (CKD) Suicide Anesthesia complication Bleeding disorder Stroke Social History Smoking and tobacco/nicotine status: former use of tobacco/nicotine Alcohol intake: never Substance/Drug Use: never Physical Exam 2 Narrative: EXAM NARRATIVE: General: Alert, no acute distress. Skin: Warm, dry. Head: Normocephalic, atraumatic. Neck: Supple, trachea midline. Eye: Extraocular movements are intact. Ears, nose, mouth and throat: mucosa moist. Cardiovascular: Regular, Normal peripheral perfusion. Respiratory: Lungs are clear to auscultation, respirations are non-labored, breath sounds are equal, Symmetrical chest wall expansion. Gastrointestinal: Soft, Nontender, Non distended Musculoskeletal: Normal ROM, no deformity. Neurological: Alert and oriented, No focal neurological deficit observed. Psychiatric: Cooperative, appropriate mood & affect. Course 2 Vital Signs: Vital signs: Vital Signs Temperature 98.0 F 02/10/24 16:45 Pulse Rate 63 02/10/24 18:30 Respiratory Rate 16 02/10/24 16:45 Blood Pressure 190/85 02/10/24 18:30 Pulse Oximetry 100 02/10/24 18:30 Oxygen Delivery Me thod Room Air 02/10/24 18:30 MDM - Arrhythmia/Palpitations Medical Decision Making Medical decision making: Differential diagnosis: Infection such as urinary tract infection. Dehydration. Orthostasis. EKG: Normal sinus rhythm, nonspecific ST-T changes, no ectopy, normal MS & QRS intervals, This was reviewed and interpreted by myself the ER physician Lab Review: Laboratory results were reviewed and interpreted by myself the emergency room physician. No leukocytosis. No anemia. BUN and creatinine are stable he has some chronic renal insufficiency with a BUN/creatinine of 23 and 1.9 today. This is slightly elevated over his baseline. Urinalysis is clear. I reviewed the patient's medical record. Reexamination: Patient remained stable. No increased work of breathing. Altered mental status. Patient did tell slightly on his Ortho was. Fluids been given. Assessment and plan: Orthostasis Dehydration ?Normal saline bolus in the emergency room - Discharged home - Discussed findings and plan with patient. Answered any questions. - All laboratory values were reviewed and interpreted personally by myself, the ER physician - Evaluation and treatment of this problem were appropriate in the emergency setting Lab Data 02/10/24 17:09 02/10/24 17:09 Laboratory Results WBC 9.65 10^3/uL (3.29-11.43) 02/10/24 17:09 RBC 4.83 10^6/uL (3.85-5.65) 02/10/24 17:09 Hgb 13.80 g/dL (11.27-16.99) 02/10/24 17:09 Hct 44.9 % (37-53) 02/10/24 17:09 MCV 93.0 fl (82-101) 02/10/24 17:09 MCH 28.6 pg (27-33) 02/10/24 17:09 MCHC 30.7 g/dL (30-55) 02/10/24 17:09 RDW 14.1 % (12.1-15.1) 02/10/24 17:09 Plt Count 232 10^3/cmm (157-399) 02/10/24 17:09 MPV 9.3 fL (7.4-10.4) 02/10/24 17:09 Neut % (Auto) 67.9 % 02/10/24 17:09 Lymph % (Auto) 18.2 % 02/10/24 17:09 [place] % (Auto) 8.2 % 02/10/24 17:09 Eos % (Auto) 4.9 % 02/10/24 17:09 Baso % (Auto) 0.5 % 02/10/24 17:09 Neut # (Auto) 6.55 10^3/uL (1.8-7.7) 02/10/24 17:09 Lymph # (Auto) 1.8 10^3/uL (0.8-4.8) 02/10/24 17:09 [place] # (Auto) 0.8 10^3/uL (0.2-0.9) 02/10/24 17:09 Eos # (Auto) 0.5 10^3/uL (0.0-0.8) 02/10/24 17:09 Baso # (Auto) 0.1 10^3/uL (0.0-0.1) 02/10/24 17:09 Nucleated RBC % (auto) 0 % 02/10/24 17:09 Nucleated RBCs # 0.0 /100WBC 02/10/24 17:09 Sodium 139 mmol/L (136-145) 02/10/24 17:09 Potassium 5.0 mmol/L (3.5-5.1) 02/10/24 17:09 Chloride 102 mmol/L (98-107) 02/10/24 17:09 Carbon Dioxide 27 mmol/L (22-29) 02/10/24 17:09 Anion Gap 15.0 (5-19) 02/10/24 17:09 BUN 23 mg/dL (8-23) 02/10/24 17:09 Creatinine 1.9 mg/dL (0.7-1.2) H 02/10/24 17:09 GFR Calculation Not Reportable 02/10/24 17:09 Glucose 86 mg/dL (65-115) 02/10/24 17:09 Calculated Osmolality 291 mOsm/kg (285-295) 02/10/24 17:09 Lactic Acid 1.3 mmol/L (0.5-2.2) 02/10/24 17:05 Calcium 9.5 mg/dL (8.5-10.5) 02/10/24 17:09 Magnesium 2.2 mg/dL (1.7-2.3) 02/10/24 17:05 Total Bilirubin 0.4 mg/dL (0.15-1.2) 02/10/24 17:09 AST 18 U/L (0-40) 02/10/24 17:09 ALT 9 U/L (0-41) 02/10/24 17:09 Alkaline Phosphatase 124 U/L (40-130) 02/10/24 17:09 Total Protein 7.0 g/dL (6.6-8.7) 02/10/24 17:09 Albumin 4.0 g/dL (3.5-5.2) 02/10/24 17:09 Globulin 3.0 g/dL (1.3-4.6) 02/10/24 17:09 Urine Color Yellow (Yellow) 02/10/24 18:19 Urine Appearance Clear (CLEAR) 02/10/24 18:19 Urine pH 6.5 (5-7) 02/10/24 18:19 Ur Specific [place] 1.011 (1.005-1.030) 02/10/24 18:19 Urine Protein Negative (Negative) 02/10/24 18:19 Urine Glucose (UA) Negative (Normal) 02/10/24 18:19 Urine Ketones Negative (Negative) 02/10/24 18:19 Urine Blood Negative (Negative) 02/10/24 18:19 Urine Nitrate Negative (Negative) 02/10/24 18:19 Urine Bilirubin Negative (Negative) 02/10/24 18:19 Urine Urobilinogen 1.0 mg/dL (Negative) 02/10/24 18:19 Ur Leukocyte Esterase Negative (Negative) 02/10/24 18:19 Urine RBC 0-2 /hpf (0-2) 02/10/24 18:19 Urine WBC 0-5 /hpf (0-5) 02/10/24 18:19 Ur Squamous Epith Cells 0-5 /hpf (0-5) 02/10/24 18:19 Amorphous Sediment Not Reportable 02/10/24 18:19 Urine Bacteria None seen /hpf (NONE) 02/10/24 18:19 Hyaline Casts 0-4 /lpf H 02/10/24 18:19 No radiology studies performed this visit Discharge Plan Discharge Patient Disposition: Home Clinical Impression: Orthostasis, Dehydration Condition: Stable Prescriptions: No Action atorvastatin 40 mg tablet 40 mg PO DAILY finasteride 5 mg tablet 5 mg PO DAILY omeprazole 20 mg capsule,delayed release(DR/EC) 20 mg PO DAILY (DME) Lumbar Corset Brace See Rx Instructions .Route .MEDSUPPLY Qty: 1 0RF Rx Instructions: As directed (DME) Rolling Walker with Seat See Rx Instructions .Route .MEDSUPPLY Qty: 1 0RF Rx Instructions: As directed (DME) Rolling Walker See Rx Instructions .Route .MEDSUPPLY Qty: 1 0RF Rx Instructions: As directed zolpidem 5 mg tablet 5 mg PO BEDTIME (DME) DME: Bed rail See Rx Instructions .Route .MEDSUPPLY Qty: 1 0RF Rx Instructions: As directed (DME) DME: Wedge Pillow See Rx Instructions .Route .MEDSUPPLY Qty: 1 0RF Rx Instructions: As directed amlodipine 5 mg tablet 5 mg PO DAILY Qty: 30 5RF alprazolam 1 mg tablet 1 mg PO QID PRN (Reason: Anxiety) carvedilol 3.125 mg tablet 3.125 mg PO BID nitroglycerin 0.4 mg tablet, sublingual See Rx Instructions .ROUTE .COMPLEX Rx Instructions: PLACE 1 TABLET UNDER TONGUE EVERY 5 MINS, UP TO 3 DOSES NEEDED FOR CHEST PAIN lactulose 10 gram/15 mL solution 15 ml PO DAILY PRN (Reason: Constipation) diclofenac sodium 1 % Gel 4 g TOPICAL QID PRN (Reason: Pain) Rx Instructions: apply to single knee, ankle, foot; for foot includes sole/toes/top of foot oxycodone 10 mg Tablet 10 mg PO Q4H PRN (Reason: Pain) Rx Instructions: MAX 4 PER DAY Discharge Orders: Discharge ED (Routine); Ordered 02/10/24 Ordered By: Mel Reddy Referrals: Ganesh Albarado MD [Primary Care Provider] - Discharge Diet: Usual diet Discharge Activity: Limit activity as instructed Patient Instructions: Near Syncope (ED) Activity Restrictions/Additional Instructions: Thank you for choosing [facility] for your healthcare needs today. Please realize this is an emergency room and that we are providing you with a medical screening exam and this may not be complete and all inclusive of all the testing and or work up that you may need to determine your ailment or severity of your illness. You have been screened and evaluated and felt safe for discharge. Health conditions do change or evolve sometimes and as such it is important that you follow up with your Primary Doctor to be re checked, 3-5 days is a general good time frame for follow up. You are always welcome to return to the ED for re assessment if your symptoms are worsening or you have new concerns Coding Level of Care Code ED Brick Offbearer for Milena Colvin
[2024-02-10 18:03] VITALS: BP 116/66; BP 144/70; BP 168/76; PULSE 60; PULSE 65; PULSE 69
--- NOTE | 2024-02-10 18:27 | PC.NURSE ---
post void bladder scan 330ml. Dr. Reddy notified.
[2024-02-10 18:30] VITALS: BP 190/85; PULSE 63; O2SAT 100
[2024-02-10] MEDS: sodium chloride 0.9% 1,000 ML 999 ML IV (18:37)
[2024-02-10 18:52] LABS: Bilirubin Urine Negative (Negative); Blood Urine Negative (Negative); Glucose Urine UA Negative (Normal); Ketones Urine Negative (Negative); Leukocyte Esterase Urine Negative (Negative); Nitrate Urine Negative (Negative); Protein Urine Negative (Negative); Specific Gravity, Urine 1.011 (1.005-1.030); Urine Appearance Clear (CLEAR); Urine Color Yellow (Yellow); pH Urine 6.5 (5-7)
[2024-02-10 18:55] LABS: Bacteria Urine None Seen /hpf; Hyaline Casts Urine 0-4 /lpf; RBC Urine 0-2 /hpf (0-2); Squamous Epithelial Cell Urine 0-5 /hpf (0-5); WBC Urine 0-5 /hpf (0-5)
[2024-02-10 19:41] VITALS: BP 156/80; PULSE 62; RESP 18; O2SAT 98
== END 2024-02-10 19:42 | disposition home or self-care (01) ==
PROVIDERS: Emergency Medicine; Emergency Provider Emergency Medicine; PCP Family Medicine
DX: I95.1 Orthostatic hypotension (principal); E86.0 Dehydration; Z87.891 Personal history of nicotine dependence; I25.10 Atherosclerotic heart disease of native coronary artery without angina pectoris; E78.5 Hyperlipidemia, unspecified; I13.0 Hypertensive heart and chronic kidney disease with heart failure and stage 1 through stage 4 chronic kidney disease, or unspecified chronic kidney disease; N18.9 Chronic kidney disease, unspecified; I50.9 Heart failure, unspecified; Z95.1 Presence of aortocoronary bypass graft
CPT/HCPCS: 36415; 51798; 80053; 81001; 83605; 83735; 85025; 93005; 99284; J7030

== ENCOUNTER → 2024-03-16 17:09 | Outpatient (BNVA) | payer OTHER, MEDICARE, SELFPAY | PROVIDERS: PCP Family Medicine; Visit Provider Internal Medicine Cardiovascular Disease | DX: R06.02 Shortness of breath (principal) | CPT/HCPCS: 36415; 80048; 83880 ==

== ENCOUNTER 2024-03-29 06:42 | Outpatient (CLI) | payer MEDICARE, OTHER, SELFPAY ==
--- NOTE | 2024-03-29 06:53 | USCV_ITS ---
Obed Turner Age: 84 Gender: M : 1940 Exam Date: 03/29/2024 07:04 Ordering Phys: Ganesh Albarado MD Technologist: [place] [facility] [place]: sob BP: 120 / 70 HR: 60 Rhythm: Sinus Technical Quality: Adequate MEASUREMENTS (Male / Female) Normal Values 2D ECHO LV Diastolic Diameter PLAX 4.5 cm 4.2 - 5.9 / 3.9 - 5.3 cm LV Systolic Diameter PLAX 2.9 cm IVS Diastolic Thickness 1.1 cm 0.6 - 1.0 / 0.6 - 0.9 cm IVS Systolic Thickness 1.4 cm LVPW Diastolic Thickness 1.2 cm 0.6 - 1.0 / 0.6 - 0.9 cm LVPW Systolic Thickness 1.4 cm LVOT Diameter 2.0 cm LV Ejection Fraction 2D Teich 65.0 % LV Ejection Fraction MOD 4C 52.1 % LV Ejection Fraction MOD 2C 66.1 % LV Ejection Fraction 2C AL 67.1 % LA Diameter 3.8 cm RA Systolic Volume 4C AL 32.4 ml RA Systolic Volume 4C MOD 30.1 ml LA Sys Volume AL 46.9 cm cubed LA Sys Volume Index AL 24.3 cm cubed/m squared Aorta at Sinotubular Diameter 2.8 cm M-MODE LA Ao Ratio MM 1.2 AV Cusp Separation MM 2.0 cm DOPPLER AV Peak Velocity 126.0 cm/s LVOT Peak Velocity 68.0 cm/s AV Area Cont Eq vti 2.0 cm squared AV Area Cont Eq pk 1.8 cm squared MV Peak Velocity 109.0 cm/s MV Area PHT 2.0 cm squared Mitral E to A Ratio 0.6 TR Peak Velocity 150.0 cm/s TR Peak Gradient 9.0 mmHg TV Peak E Velocity 98.0 cm/s Right Atrial Pressure 3.0 mmHg Pulmonary Artery Systolic Pressu 12.0 mmHg PV Peak Velocity 107.0 cm/s FINDINGS Left Ventricle Normal LV size with an ejection fraction of 50 to 55%. Mild diffuse hypokinesis with inferior wall.Grade I/IV diastolic dysfunction (abnormal relaxation filling pattern), normal to mildly elevated filling pressures. Right Ventricle Normal right ventricular size and systolic function. Right Atrium The right atrium is normal in size. Left Atrium The left atrium is normal in size. Mitral Valve No gross abnormalities noted Aortic Valve Thickened aortic valve. Tricuspid Valve No gross abnormalities noted Pulmonic Valve Pulmonic valve not well visualized. Pericardium No pericardial effusion. Aorta Normal ascending aorta dimension. IVC Inferior vena cava not visualized. CONCLUSIONS Normal LV size with an ejection fraction of 50 to 55%. Mild diffuse hypokinesis with inferior wall. Grade I/IV diastolic dysfunction (abnormal relaxation filling pattern), normal to mildly elevated filling pressures. Thickened aortic valve. There is no pericardial effusion. There are no intracardiac masses. Compared to the previous study from 01/31/2021, there may not be a significant change Dr Segundo Clemente MD [facility] (Electronically Signed) Final Date: 30 March 2024 23:17 S
== END 2024-03-29 06:43 | disposition home or self-care (01) ==
LOC: RAD 06:43
PROVIDERS: PCP Family Medicine; Visit Provider Family Medicine
DX: I50.30 Unspecified diastolic (congestive) heart failure (principal); I35.2 Nonrheumatic aortic (valve) stenosis with insufficiency; R06.09 Other forms of dyspnea
CPT/HCPCS: 93306

== ENCOUNTER 2024-03-29 16:10 | Inpatient (IN) | payer OTHER, MEDICARE, SELFPAY ==
[2024-03-29] VITALS (11 sets, daily range): BP systolic 150–183; BP diastolic 72–91; PULSE 66–83; RESP 16–18; TEMP 36.8–36.9; O2SAT 94–98; BMI 23.1
--- NOTE | 2024-03-29 16:19 | XRR_ITS ---
PROCEDURE INFORMATION: Exam: XR Right Hip Exam date and time: 03/29/2024 4:24 PM Age: 84 years old Clinical indication: Injury or trauma; Fall; Blunt trauma (contusions or hematomas); Right; Hip TECHNIQUE: Imaging protocol: Radiologic exam of the right hip. Views: 1 view hip with pelvis when performed. COMPARISON: CR XR hip BI m 5V wo/w pel* [id number] 01/27/2022 6:50 PM FINDINGS: Bones/joints: There is an acute transverse displaced intertrochanteric fracture involving the proximal right femur. No other fracture noted. Soft tissues: Unremarkable. XR/XR hip RT 2-3V wo/w pel* [id number] IMPRESSION: Acute intertrochanteric fracture of the right femur
--- NOTE | 2024-03-29 16:35 | XRR_ITS ---
PROCEDURE INFORMATION: Exam: XR Chest Exam date and time: 03/29/2024 4:39 PM Age: 84 years old Clinical indication: Injury or trauma; Fall; Blunt trauma (contusions or hematomas); Prior surgery; Surgery date: 6+ months; Surgery type: Open heart; Additional info: Dyspnea/cough TECHNIQUE: Imaging protocol: Radiologic exam of the chest. Views: 1 view. COMPARISON: CR XR chest 2V* [id number] 12/10/2023 2:55 PM FINDINGS: Lungs: Unremarkable. No consolidation or mass. Pleural spaces: Unremarkable. No pleural effusion. No pneumothorax. Heart/Mediastinum: Unremarkable. No cardiomegaly. Bones/joints: Sternal sutures are noted. XR/XR chest 1V portable [id number] IMPRESSION: No acute findings.
--- NOTE | 2024-03-29 16:35 | XRR_ITS ---
PROCEDURE INFORMATION: Exam: XR Right Femur Exam date and time: 03/29/2024 4:35 PM Age: 84 years old Clinical indication: Injury or trauma; Fall; Blunt trauma; Thigh or upper leg; Right; Additional info: Hip fracrue TECHNIQUE: Imaging protocol: Radiologic exam of the right femur. Views: 2 views. COMPARISON: CR (PELVIS, ) 03/29/2024 4:24 PM FINDINGS: Bones/joints: There is an acute transverse displaced intertrochanteric fracture involving the proximal right femur. No other fracture noted. Soft tissues: Unremarkable. XR/XR femur RT min 2V* [id number] IMPRESSION: Acute intertrochanteric fracture of the right femur
--- NOTE | 2024-03-29 16:36 | ED_ITS ---
HPI - Extremity Problem 2 General: Chief complaint: Extremity Injury, Lower Stated complaint: rt hip pain, fall Time Seen by Provider: 03/29/24 16:11 History of Present Illness: 84-year-old male presents emergency room with right hip pain after a fall. Patient fell from a standing position. Did not strike his head did not lose consciousness patient states he falls at least twice a week. Ground-level mechanical fall today. He is not on any anticoagulants his last meal was around 9:00 this morning. Associated symptoms: Deny chest pain, fever(s) or rash Related Data Home Medications Medication Instructions Recorded Confirmed atorvastatin 40 mg tablet 40 mg PO DAILY 07/01/19 11/28/23 finasteride 5 mg tablet 5 mg PO DAILY 07/01/19 11/28/23 omeprazole 20 mg capsule,delayed 20 mg PO DAILY 07/01/19 11/28/23 release alprazolam 1 mg tablet 1 mg PO QID PRN Anxiety 03/25/22 11/28/23 zolpidem 5 mg tablet 5 mg PO BEDTIME 09/11/23 11/28/23 carvedilol 3.125 mg tablet 3.125 mg PO BID 11/28/23 11/28/23 lactulose 10 gram/15 mL oral 15 ml PO DAILY PRN Constipation 11/28/23 11/28/23 solution nitroglycerin 0.4 mg sublingual See Rx Instructions .Route .COMPLEX 11/28/23 11/28/23 tablet oxycodone 10 mg tablet 10 mg PO Q4H PRN Pain 11/28/23 11/28/23 Previous Rx's Medication Instructions Recorded Lumbar Corset Brace #1 ea 02/05/22 DME: Bed rail #1 ea 02/13/22 DME: Wedge Pillow #1 ea 02/13/22 Rolling Walker #1 ea 05/13/22 Rolling Walker with Seat #1 ea 05/14/22 amlodipine 5 mg tablet See Rx Instructions .Route 02/23/24 .COMPLEX #90 tabs Allergies Allergy/AdvReac Type Severity Reaction Status Date / Time horse serum Allergy Severe Unknown Uncoded 03/16/24 15:52 Review of Systems 2 Const: Denies: fever(s) or chills Card: Denies: chest pain Resp: Denies: dyspnea GI: Denies: abdominal pain : Denies: dysuria, urinary frequency or urinary urgency Musc: Reports: joint pain; Denies: neck pain or back pain Skin/Breast: Denies: rash PFSH ED 2 PFSH: Medical History Atherosclerosis of coronary artery CABG 07/21/2018 GERD (gastroesophageal reflux disease) Hyperlipidemia BPH (benign prostatic hyperplasia) Chronic kidney disease Coronary artery disease Anxiety Depression Anemia CHF (congestive heart failure) Pulmonary embolism HTN (hypertension) Surgical History S/P shoulder surgery Bilateral Previous back surgery X2 S/P knee surgery S/P CABG (coronary artery bypass graft) 07/21/2018 Family History Father Lung disease Mother Cancer Sister Diabetes Denies family history of CAD (coronary artery disease) Clotting disorder Dementia Chronic kidney disease (CKD) Suicide Anesthesia complication Bleeding disorder Stroke Social History Smoking and tobacco/nicotine status: former use of tobacco/nicotine Alcohol intake: never Substance/Drug Use: never Physical Exam 2 Const: GENERAL APPEARANCE: cooperative ORIENTATION/CONSCIOUSNESS: Yes awake, Yes oriented to person, Yes oriented to place and Yes oriented to time HENMT: COMMON NORMALS: normocephalic, atraumatic and hearing grossly normal bilaterally HEAD & SCALP: normocephalic and atraumatic Resp: COMMON NORMALS: normal respiratory effort, No retractions, No use of accessory muscles and clear to auscultation bilaterally AUSCULTATION: clear to auscultation bilaterally Cardio: COMMON NORMALS: regular rate, regular rhythm and No murmurs present (Cardio) RATE: regular rate RHYTHM: regular rhythm GI: COMMON NORMALS: Soft to palpation and No hepatosplenomegaly present A USCULTATION: Yes normoactive bowel sounds PALPATION: Yes Soft to palpation, No Tenderness to palpation present (GI), No Guarding due to palpation present (GI) and Yes No hepatosplenomegaly present Extremity: COMMON NORMALS: normal to inspection, capillary refill normal, no clubbing, cyanosis or edema, no calf tenderness and no pedal edema OTHER: Right hip pain with shortening slight external rotation. Peripheral pulses good neurovascularly intact in the lower extremity. Neuro: SENSORIUM/ORIENTATION: Yes oriented to person, Yes oriented to place and Yes oriented to time Skin: COMMON NORMALS: no rashes or lesions noted GENERAL SKIN EXAM: no rashes or lesions noted Course 2 Vital Signs: Vital signs: Vital Signs Temperature 98.3 F 03/29/24 16:13 Pulse Rate 66 03/29/24 16:13 Respiratory Rate 16 03/29/24 16:13 Blood Pressure 179/87 03/29/24 16:13 Pulse Oximetry 97 03/29/24 16:13 Oxygen Delivery Me thod Room Air 03/29/24 16:13 MDM - Extremity (Nontraumatic) Medical Decision Making Right comminuted intertrochanteric hip fracture. Will admit to hospitalist consult orthopedics talk to Dr. Salazar as well as to Dr. Soliz. Orders written. Medical Records I reviewed the patient's medical records. Lab Data I reviewed the patient's lab results. 03/29/24 16:48 03/29/24 16:48 Radiology Impressions Hip/Pelvis X-Ray 03/29/24 16:19 IMPRESSION: Acute intertrochanteric fracture of the right femur Laboratory Results WBC 8.92 10^3/uL (3.29-11.43) 03/29/24 16:48 RBC 4.32 10^6/uL (3.85-5.65) 03/29/24 16:48 Hgb 12.40 g/dL (11.27-16.99) 03/29/24 16:48 Hct 39.9 % (37-53) 03/29/24 16:48 MCV 92.4 fl (82-101) 03/29/24 16:48 MCH 28.7 pg (27-33) 03/29/24 16:48 MCHC 31.1 g/dL (30-55) 03/29/24 16:48 RDW 13.8 % (12.1-15.1) 03/29/24 16:48 Plt Count 195 10^3/cmm (157-399) 03/29/24 16:48 MPV 9.1 fL (7.4-10.4) 03/29/24 16:48 Neut % (Auto) 65.6 % 03/29/24 16:48 Lymph % (Auto) 21.2 % 03/29/24 16:48 [place] % (Auto) 7.7 % 03/29/24 16:48 Eos % (Auto) 4.8 % 03/29/24 16:48 Baso % (Auto) 0.4 % 03/29/24 16:48 Neut # (Auto) 5.84 10^3/uL (1.8-7.7) 03/29/24 16:48 Lymph # (Auto) 1.9 10^3/uL (0.8-4.8) 03/29/24 16:48 [place] # (Auto) 0.7 10^3/uL (0.2-0.9) 03/29/24 16:48 Eos # (Auto) 0.4 10^3/uL (0.0-0.8) 03/29/24 16:48 Baso # (Auto) 0.0 10^3/uL (0.0-0.1) 03/29/24 16:48 Nucleated RBC % (auto) 0 % 03/29/24 16:48 Nucleated RBCs # 0.0 /100WBC 03/29/24 16:48 All radiology interpretation(s) finalized by discharge Discharge Plan Discharge Patient Disposition: Admitted As Inpatient Clinical Impression: Closed intertrochanteric fracture of right hip, S/P CABG (coronary artery bypass graft), Hx pulmonary embolism, History of CHF (congestive heart failure) HTN (hypertension) Qualifiers: Hypertension type: essential hypertension Qualified Code(s): I10 - Essential (primary) hypertension Condition: Stable Coding Level of Care Code ED Brand Sales Manager for Milena Colvin
--- NOTE | 2024-03-29 16:43 | ECG_ITS ---
[employer] e27 Test Date: 2024-03-29 Pat Name: Obed Turner Department: Room: Gender: Male Failure Analysis Engineer: : 1940 Requested By: Dominic Boles Order Number: [id number] Shane MD: Segundo Clemente M.D. Measurements Intervals [place] Rate: 67 P: 71 [place]: 175 QRS: 74 QRSD: 86 T: -80 QT: 415 QTc: 440 Interpretive Statements SINUS RHYTHM WITH OCCASIONAL SUPRAVENTRICULAR PREMATURE COMPLEXES ST DEVIATION AND MODERATE T-WAVE ABNORMALITY, CONSIDER LATERAL ISCHEMIA [-0.1+ mV T-WAVE IN I/aVL/V5/V6] ST DEVIATION AND MODERATE T-WAVE ABNORMALITY, CONSIDER INFERIOR ISCHEMIA [-0.1+ mV T-WAVE IN II/aVF] Compared to ECG 02/10/2024 16:38:52 Myocardial infarct finding no longer present T-wave abnormality still present Possible ischemia still present Electronically Signed On 03-31-2024 01:01:46 CDT by Segundo Clemente M.D. [email or web address]
[2024-03-29 16:53] LABS: Basophils % 0.4 %; Eosinophils # 0.4 10^3/uL (0.0-0.8); Eosinophils % 4.8 %; Hematocrit 39.9 % (37-53); Lymphocytes # 1.9 10^3/uL (0.8-4.8); Lymphocytes % 21.2 %; Mean Corpuscular HGB Conc 31.1 g/dL (30-55); Mean Corpuscular Hemoglobin 28.7 pg (27-33); Mean Corpuscular Volume 92.4 fl (82-101); Mean Platelet Volume 9.1 fL (7.4-10.4); Monocytes # 0.7 10^3/uL (0.2-0.9); Monocytes % 7.7 %; Neutrophils # 5.84 10^3/uL (1.8-7.7); Neutrophils % 65.6 %; Nucleated Red Blood Cells % 0 %; Platelet Count 195 10^3/cmm (157-399); Red Blood Count 4.32 10^6/uL (3.85-5.65); Red Cell Distribution Width 13.8 % (12.1-15.1); White Blood Count 8.92 10^3/uL (3.29-11.43)
--- NOTE | 2024-03-29 17:01 | PM.CONSULT ---
Documented by User: JANELL Malin 03/29/24 17:38 Providers/Reason For Consult Consulting Physician/Specialty*: Dr. Martínze DO/orthopedic surgeon Reason for Consult*: Right hip fracture Requesting Physician: Dr. Mayer/emergency department Primary Care Provider: Ganesh Albarado MD History of Present Illness History of Present Illness Obed Turner Sr is a 84 year old male that has a right hip fracture after sustaining a fall. Patient lives at home with his and uses a walker with ambulation. Patient says he has had balance issues for years. Today he got up and was walking around without a walker and fell. It was a mechanical fall at ground-level. Denies any loss of consciousness. Patient says he landed on his right hip. Patient is not on any blood thinners. He was brought in the emergency department and x-rays were done and it showed patient had a right intertrochanteric hip fracture. Review of Systems Const: Denies: fever(s) or chills ENMT: Denies: nasal discharge or nasal congestion Card: Denies: chest pain Resp: Denies: dyspnea, productive cough or non-productive cough GI: Denies: abdominal pain, nausea or vomiting : Denies: dysuria Musc: Reports: extremity pain (Right hip) and limited range of motion (Right hip) Medications/Allergies Home Medications Medication Instructions Recorded Confirmed Last Taken Type atorvastatin 40 mg tablet 40 mg PO DAILY 07/01/19 03/30/24 03/29/24 History finasteride 5 mg tablet 5 mg PO DAILY 07/01/19 03/30/24 03/29/24 History omeprazole 20 mg capsule,delayed 20 mg PO DAILY 07/01/19 03/30/24 03/29/24 History release Lumbar Corset Brace #1 ea 02/05/22 03/30/24 Unknown Rx DME: Bed rail #1 ea 02/13/22 03/30/24 Unknown Rx DME: Wedge Pillow #1 ea 02/13/22 03/30/24 Unknown Rx alprazolam 1 mg tablet 1 mg PO QID PRN Anxiety 03/25/22 03/29/24 03/28/24 History Rolling Walker #1 ea 05/13/22 03/30/24 Unknown Rx Rolling Walker with Seat #1 ea 05/14/22 03/30/24 Unknown Rx zolpidem 5 mg tablet 5 mg PO BEDTIME 09/11/23 03/29/24 03/28/24 History carvedilol 3.125 mg tablet 3.125 mg PO BID 11/28/23 03/30/24 03/29/24 History lactulose 10 gram/15 mL oral 15 ml PO DAILY PRN Constipation 11/28/23 03/30/24 Unknown History solution nitroglycerin 0.4 mg sublingual See Rx Instructions .Route .COMPLEX 11/28/23 03/30/24 Unknown History tablet oxycodone 10 mg tablet 10 mg PO Q4H PRN Pain 11/28/23 03/30/24 03/29/24 History amlodipine 5 mg tablet See Rx Instructions .Route 02/23/24 03/30/24 03/29/24 Rx .COMPLEX #90 tabs tamsulosin 0.4 mg capsule 0.4 mg PO BID 03/30/24 03/30/24 03/29/24 History zolpidem 10 mg tablet 10 mg PO DAILY 03/30/24 03/30/24 03/28/24 History Allergies Allergy/AdvReac Type Severity Reaction Status Date / Time horse serum Allergy Severe Unknown Uncoded 03/16/24 15:52 PFSH Acute PFSH: Medical History Orthostatic hypotension dysautonomic syndrome Atherosclerosis of coronary artery CABG 07/21/2018 GERD (gastroesophageal reflux disease) Hyperlipidemia BPH (benign prostatic hyperplasia) Chronic kidney disease Coronary artery disease Anxiety Depression Anemia CHF (congestive heart failure) Pulmonary embolism HTN (hypertension) Surgical History S/P shoulder surgery Bilateral Previous back surgery X2 S/P knee surgery S/P CABG (coronary artery bypass graft) 07/21/2018 Family History Father Lung disease Mother Cancer Sister Diabetes Denies family history of CAD (coronary artery disease) Clotting disorder Dementia Chronic kidney disease (CKD) Suicide Anesthesia complication Bleeding disorder Stroke Social History Smoking and tobacco/nicotine status: former use of tobacco/nicotine Alcohol intake: never Substance/Drug Use: never Vitals/I&O/Wt Last Vital Signs Temp 98.3 F 03/29/24 16:13 Pulse 66 03/29/24 16:13 Resp 16 03/29/24 16:13 BP 179/87 03/29/24 16:13 Pulse Ox 97 03/29/24 16:13 O2 Del Method Room Air 03/29/24 16:13 Weight last 48 hrs Weight 166 lb Physical Exam Narrative: Right lower extremity-leg is slightly shortened. no external rotation seen. Positive logroll test. Tenderness to palpation right hip. compartments are soft and compressible. Patient can Wiggle toes. Toes are warm and well-perfused. Pedal pulse 2+. Secondary assessment of other extremities. Upper extremities-no visible injuries, abrasions. Full range of motion in shoulders, elbows and wrist. no tenderness to palpation of shoulders or wrist. Left lower extremity-no visible injury or trauma seen. Full range of motion in hip. Negative logroll test. Patient able to perform straight leg raise and can dorsiflex plantarflex foot. Pedal pulse 2+ and patient can wiggle toes. Const: COMMON NORMALS: no acute distress and alert Resp: COMMON NORMALS: normal respiratory effort and No retractions Cardio: COMMON NORMALS: Peripheral pulses 2+ throughout PERIPHERAL PULSES: Peripheral pulses 2+ throughout Neuro: SENSORIUM/ORIENTATION: Yes alert Skin: GENERAL SKIN EXAM: dry skin Data 03/30/24 00:34 03/30/24 00:34 Xray Ortho: Radiologist's impression: Patient: Obed Turner Unit #: [id number] : 1940 Age/Sex: 84 / M ADM Date: 03/29/24 Loc: ER Room/Bed: Attending Dr: Ordering Provider/Ordering MD: Dominic Mayer DO Date of Service: 03/29/24 Procedure(s): XR hip RT 2-3V wo/w pel* [id number] Accession Number(s): [id number] Report Number: [id number] PROCEDURE INFORMATION: Exam: XR Right Hip Exam date and time: 03/29/2024 4:24 PM Age: 84 years old Clinical indication: Injury or trauma; Fall; Blunt trauma (contusions or hematomas); Right; Hip TECHNIQUE: Imaging protocol: Radiologic exam of the right hip. Views: 1 view hip with pelvis when performed. COMPARISON: CR XR hip BI m 5V wo/w pel* [id number] 01/27/2022 6:50 PM FINDINGS: Bones/joints: There is an acute transverse displaced intertrochanteric fracture involving the proximal right femur. No other fracture noted. Soft tissues: Unremarkable. XR/XR hip RT 2-3V wo/w pel* [id number] IMPRESSION: Acute intertrochanteric fracture of the right femur Dictated By: Swapnil Szymanski MD A&P Assessment and plan (1) Closed intertrochanteric fracture of right hip: Plan Plan: -Imaging and Labs reviewed -Hospitalist on board for medical management. -VTE prophylaxis -Nonweightbearing on right leg -Pain control -N.p.o. after midnight -Surgery tomorrow morning for Right hip Trochanteric femur nail Coding Level of Care Code Acute Code for [facility] Diagnoses Closed intertrochanteric fracture of right hip S72.141A Time Spent (min) 40 Documented by User: Britton Soliz DO 03/30/24 22:36 Medications/Allergies Home Medications Medication Instructions Recorded Confirmed Last Taken Type atorvastatin 40 mg tablet 40 mg PO DAILY 07/01/19 03/30/24 03/29/24 History finasteride 5 mg tablet 5 mg PO DAILY 07/01/19 03/30/24 03/29/24 History omeprazole 20 mg capsule,delayed 20 mg PO DAILY 07/01/19 03/30/24 03/29/24 History release Lumbar Corset Brace #1 ea 02/05/22 03/30/24 Unknown Rx DME: Bed rail #1 ea 02/13/22 03/30/24 Unknown Rx DME: Wedge Pillow #1 ea 02/13/22 03/30/24 Unknown Rx alprazolam 1 mg tablet 1 mg PO QID PRN Anxiety 03/25/22 03/29/2424 History Rolling Walker #1 ea 05/13/22 03/30/24 Unknown Rx Rolling Walker with Seat #1 ea 05/14/22 03/30/24 Unknown Rx zolpidem 5 mg tablet 5 mg PO BEDTIME 09/11/23 03/29/24 03/28/24 History carvedilol 3.125 mg tablet 3.125 mg PO BID 11/28/23 03/30/24 03/29/24 History lactulose 10 gram/15 mL oral 15 ml PO DAILY PRN Constipation 11/28/23 03/30/24 Unknown History solution nitroglycerin 0.4 mg sublingual See Rx Instructions .Route .COMPLEX 11/28/23 03/30/24 Unknown History tablet oxycodone 10 mg tablet 10 mg PO Q4H PRN Pain 11/28/23 03/30/24 03/29/24 History amlodipine 5 mg tablet See Rx Instructions .Route 02/23/24 03/30/24 03/29/24 Rx .COMPLEX #90 tabs tamsulosin 0.4 mg capsule 0.4 mg PO BID 03/30/24 03/30/24 03/29/24 History zolpidem 10 mg tablet 10 mg PO DAILY 03/30/24 03/30/24 03/28/24 History Allergies Allergy/AdvReac Type Severity Reaction Status Date / Time horse serum Allergy Severe Unknown Uncoded 03/16/24 15:52 PFSH Acute PFSH: Medical History Orthostatic hypotension dysautonomic syndrome Atherosclerosis of coronary artery CABG 07/21/2018 GERD (gastroesophageal reflux disease) Hyperlipidemia BPH (benign prostatic hyperplasia) Chronic kidney disease Coronary artery disease Anxiety Depression Anemia CHF (congestive heart failure) Pulmonary embolism HTN (hypertension) Surgical History S/P shoulder surgery Bilateral Previous back surgery X2 S/P knee surgery S/P CABG (coronary artery bypass graft) 07/21/2018 Family History Father Lung disease Mother Cancer Sister Diabetes Denies family history of CAD (coronary artery disease) Clotting disorder Dementia Chronic kidney disease (CKD) Suicide Anesthesia complication Bleeding disorder Stroke Social History Smoking and tobacco/nicotine status: former use of tobacco/nicotine Alcohol intake: never Substance/Drug Use: never Data 03/30/24 00:34 03/30/24 00:34 A&P Assessment and plan (1) Closed intertrochanteric fracture of right hip: Plan Plan: -Imaging and Labs reviewed -Hospitalist on board for medical management. -VTE prophylaxis -Nonweightbearing on right leg -Pain control -N.p.o. after midnight -Surgery tomorrow morning for Right hip Trochanteric femur nail Orthopedic attending addendum: Reviewed PAs assessment as well as plan agree with PAs assessment and plan patient has a displaced right hip intertrochanteric femur fracture this has a more stable fracture pattern would be amenable for short nail fixation reviewed patient's HPI. At this point in time we talked about treatment options far as nonoperative and operative mention. At this point in time for earlier mobilization as well as pain control would recommend surgical intervention for right hip trochanteric femur nail. We talked about this in detail as far as the risk benefits complication alternatives surgery as well as the ins and outs procedure. Risk of surge include not limited to make a better make it worse injury nerves vessels or tendons blood clot, heart attack stroke, on the table, infection, hardware failure, further surgery. Understanding risk of surgery patient like to proceed with surgical intervention. All questions have been answered at this time. Will go ahead plan for surgical intervention on 03/30/2024. Patient was seen evaluate in the preoperative holding area. The consent was reviewed and signed with patient as well as correct extremity was then subsequently marked. Patient's right lower extremity is shortened and externally rotated gross motor and sensory appears to be intact. Plan will be to return to floor postoperatively. Patient did require a stress test preoperatively was medically optimized by internal medicine team as well as cleared by anesthesia to proceed with surgery today. All questions have been answered this time we will proceed with right hip trochanteric femur nail today. Coding Level of Care Code Acute Code for [facility] Fwd Diagnoses Closed intertrochanteric fracture of right hip S72.141A Time Spent (min) 40
[2024-03-29 17:10] LABS: Alanine Aminotransferase 11 U/L (0-41); Albumin Level 3.7 g/dL (3.5-5.2); Alkaline Phosphatase 100 U/L (40-130); Anion Gap 12.4 (5-19); Aspartate Amino Transferase 17 U/L (0-40); Blood Urea Nitrogen 19 mg/dL (8-23); Calcium 9.1 mg/dL (8.5-10.5); Carbon Dioxide 25 mmol/L (22-29); Chloride 103 mmol/L (98-107); Creatinine Clr Calc Pharmacy 33.6984; Glucose 112 mg/dL (65-115); Osmolality Calculated 285 mOsm/kg (285-295); Potassium 4.4 mmol/L (3.5-5.1); Sodium 136 mmol/L (136-145); Total Bilirubin 0.4 mg/dL (0.15-1.2); Total Protein 6.7 g/dL (6.6-8.7)
[2024-03-29] MEDS: ondansetron 2 mg/ML SDV 2 mL 4 MG IVP (17:12)
[2024-03-29] MEDS: morphine 4 mg/mL SDV 1 mL IVP (17:13)
[2024-03-29 17:54] LABS: Bilirubin Urine Negative (Negative); Blood Urine Negative (Negative); Glucose Urine UA Negative (Normal); Ketones Urine Negative (Negative); Leukocyte Esterase Urine Negative (Negative); Nitrate Urine Negative (Negative); Protein Urine Negative (Negative); Specific Gravity, Urine 1.009 (1.005-1.030); Urine Appearance Clear (CLEAR); Urine Color Yellow (Yellow); pH Urine 6.5 (5-7)
[2024-03-29 17:59] LABS: Add Urine Microscopic? YES; Bacteria Urine None Seen /hpf; Hyaline Casts Urine 0-4 /lpf; RBC Urine 0-2 /hpf (0-2); Squamous Epithelial Cell Urine 0-5 /hpf (0-5); WBC Urine 0-5 /hpf (0-5)
--- NOTE | 2024-03-29 18:07 | P.HP_ITS ---
Providers/Chief Complaint 2 Primary Care Provider: Ganesh Albarado MD Chief Complaint: rt hip pain, fall History of Present Illness Obed Turner Sr is a 84 year old male with past medical history of CABG, pulmonary embolism, diastolic heart failure with recent episodes of dizziness for which he had followed up with cardiology on 03/16 and was requested for a Lexiscan stress test presents to the ER today after falling from a standing position after which he started having right hip pain and was found to have intertrochanteric right hip fracture. As per the patient he has been having frequent falls with at least 2 falls per week recently because of dizziness. Today morning patient states he was walking back from the bathroom and his knees buckled down and he fell. Prior to fall he did not have any dizziness, chest pain or difficulty in breathing. Patient has been having sharp chest pain on and off for last few weeks along with difficulty in breathing usually associated with exertion. Examination laying down in the ER with daughter at bedside complaining of extreme pain requesting more pain medications. Review of Systems 2 General: Reports: 10 or more systems reviewed and unremarkable except in HPI and below Const: Denies: fever(s), chills, body aches, change in appetite, change in weight, malaise, night sweats, diaphoresis, change in sleep pattern, daytime sleepiness or snoring Eyes: Denies: change in vision, blurry vision, photophobia, eye discomfort or eye discharge ENMT: Denies: throat pain, enlarged tonsils, hoarseness, mouth pain, oral sores, dry mouth, tinnitus, nasal congestion or post nasal drip Card: Denies: chest pain, palpitations, irregular heart rhythm, edema, swelling of feet/ankles, lightheadedness, syncope, pre-syncope, dyspnea on exertion, orthopnea, leg pain with exertion or acrocyanosis Resp: Denies: dyspnea, productive cough, non-productive cough, wheezing, stridor, pain on inspiration, change in phlegm color, hemoptysis or chest congestion GI: Denies: abdominal pain, nausea, vomiting, hematemesis, coffee ground emesis, dysphagia, heartburn, diarrhea, constipation, bloating, GI cramping, change in bowel habits, pain on defecation, hematochezia or melena : Denies: flank pain, difficulty urinating, dysuria, urinary frequency, urinary urgency, urinary hesitancy, urinary dribbling, difficulty starting urination, change in urine stream, nocturia or hematuria Musc: Denies: neck pain, back pain, extremity pain, joint pain, joint swelling, joint redness, joint stiffness or limited range of motion Neuro: Denies: headache(s), numbness in extremities, weakness in extremities, sensory changes, lack of coordination, difficulty walking, frequent falls, dizziness, vertigo, confusion, Slurred speech present, difficulty communicating thoughts or seizure-like activity Psych: Denies: anxiety, depression, mood swings, panic attacks, hopelessness or irritability Endo: Denies: polyuria, polydipsia, tired all the time, cold intolerance, excessive sweating, flushing or heat intolerance Alonso/Lymph: Denies: easy bruising or easy bleeding All/Imm: Denies: tongue swelling, facial swelling or acute wheezing Medications/Allergies Home Medications Medication Instructions Recorded Confirmed Last Taken Type atorvastatin 40 mg tablet 40 mg PO DAILY 07/01/19 03/30/24 03/29/24 History finasteride 5 mg tablet 5 mg PO DAILY 07/01/19 03/30/24 03/29/24 History omeprazole 20 mg capsule,delayed 20 mg PO DAILY 07/01/19 03/30/24 03/29/24 History release Lumbar Corset Brace #1 ea 02/05/22 03/30/24 Unknown Rx DME: Bed rail #1 ea 02/13/22 03/30/24 Unknown Rx DME: Wedge Pillow #1 ea 02/13/22 03/30/24 Unknown Rx alprazolam 1 mg tablet 1 mg PO QID PRN Anxiety 03/25/22 03/29/24 03/28/24 History Rolling Walker #1 ea 05/13/22 03/30/24 Unknown Rx Rolling Walker with Seat #1 ea 05/14/22 03/30/24 Unknown Rx zolpidem 5 mg tablet 5 mg PO BEDTIME 09/11/23 03/29/24 03/28/24 History carvedilol 3.125 mg tablet 3.125 mg PO BID 11/28/23 03/30/24 03/29/24 History lactulose 10 gram/15 mL oral 15 ml PO DAILY PRN Constipation 11/28/23 03/30/24 Unknown History solution nitroglycerin 0.4 mg sublingual See Rx Instructions .Route .COMPLEX 11/28/23 03/30/24 Unknown History tablet oxycodone 10 mg tablet 10 mg PO Q4H PRN Pain 11/28/23 03/30/24 03/29/24 History amlodipine 5 mg tablet See Rx Instructions .Route 02/23/24 03/30/24 03/29/24 Rx .COMPLEX #90 tabs tamsulosin 0.4 mg capsule 0.4 mg PO BID 03/30/24 03/30/24 03/29/24 History zolpidem 10 mg tablet 10 mg PO DAILY 03/30/24 03/30/24 03/28/24 History Allergies Allergy/AdvReac Type Severity Reaction Status Date / Time horse serum Allergy Severe Unknown Uncoded 03/16/24 15:52 PFSH Acute 2 PFSH: Medical History Orthostatic hypotension dysautonomic syndrome Atherosclerosis of coronary artery CABG 07/21/2018 GERD (gastroesophageal reflux disease) Hyperlipidemia BPH (benign prostatic hyperplasia) Chronic kidney disease Coronary artery disease Anxiety Depression Anemia CHF (congestive heart failure) Pulmonary embolism HTN (hypertension) Surgical History S/P shoulder surgery Bilateral Previous back surgery X2 S/P knee surgery S/P CABG (coronary artery bypass graft) 07/21/2018 Family History Father Lung disease Mother Cancer Sister Diabetes Denies family history of CAD (coronary artery disease) Clotting disorder Dementia Chronic kidney disease (CKD) Suicide Anesthesia complication Bleeding disorder Stroke Social History Smoking and tobacco/nicotine status: former use of tobacco/nicotine Alcohol intake: never Substance/Drug Use: never Vitals/I&O/Wt Last Vital Signs Temp 98.3 F 03/29/24 16:13 Pulse 69 03/29/24 17:17 Resp 18 03/29/24 17:13 BP 174/91 03/29/24 17:17 Pulse Ox 97 03/29/24 17:17 O2 Del Method Room Air 03/29/24 17:17 Weight last 48 hrs Weight 75.296 kg Physical Exam 2 Narrative: General: Acute distress of hip pain, AOx3 HEENT: PERRLA, pupils bilaterally equal and reactive Chest: Normal vesicular breath sounds, no added sounds, equal good air entry bilaterally CVS: S1-S2 regular, no murmurs, no tachycardia, no gallops, no rubs Abdomen: Soft, nontender, no organomegaly, bowel sounds present Neuro: No focal deficits, no facial deformity, AO x3, power 5/5 in all limbs Data 03/30/24 00:34 03/30/24 00:34 A&P Assessment and plan (1) Closed intertrochanteric fracture of right hip: Orthopedics has been consulted. Plan for ORIF. Given significant cardiac history with recent unstable angina requiring stress test patient will most likely need a cardiology clearance prior to the OR. Discussed in detail with Dr. Soliz. (2) Fall: Recurrent falls. Concerns for unstable angina. Stress test as below. Will check carotid Dopplers. (3) HTN (hypertension): Goal blood pressure less than 140/90 mmHg with mean over 65. History of dizziness for which he had been coming off of antihypertensive recently. For now continue with home dose of carvedilol and amlodipine. Qualifiers: Hypertension type: essential hypertension Qualified Code(s): I10 - Essential (primary) hypertension (4) S/P CABG (coronary artery bypass graft): Follows up with Dr. Clemente as an outpatient. Last seen on 03/16. There was concern for unstable angina for which Lexiscan stress test was ordered. Continue with home dose of statin, beta-shreya. Will plan for Lexiscan stress test. N.p.o. after midnight. Depending on the Lexiscan stress test we will discuss further with orthopedics regarding ORIF. Will consult cardiology. Check echocardiogram. Cycle troponins. (5) Hx pulmonary embolism: In the past. Not on any treatment currently. Has not had any further symptoms concerning for PE. Early ambulation. (6) History of CHF (congestive heart failure): Last echocardiogram from 2020 showed an EF of 50 to 55% with grade 1 diastolic dysfunction without regional wall motion normality. Repeat echocardiogram as above. Plan Full code Cardiac diet, n.p.o. after midnight Famotidine for OPD prophylaxis Heparin 5000 Q12 hourly for DVT prophylaxis Attestations 2 Medical Necessity Statement*: Admission for more than 2 midnights for management of close intertrochanteric fracture of right hip post mechanical fall in a patient post CABG with history of PE Diagnoses Closed intertrochanteric fracture of right hip S72.141A Fall W19.XXXA Essential hypertension I10 Hypertension type: essential hypertension S/P CABG (coronary artery bypass graft) Z95.1 Hx pulmonary embolism Z86.711 History of CHF (congestive heart failure) Z86.79
--- NOTE | 2024-03-29 18:13 | USCV_ITS ---
Obed Turner Age: 84 Gender: M : 1940 Exam Date: 03/29/2024 20:30 Ordering Phys: Isaias Salazar MD Technologist: OTIS Exam Location: [facility] [place] Indication: Intertrochanteric fracture of the RIGHT femur. Pre-op clearance. BP: 179 / 89 HR: 69 Rhythm: Sinus Technical Quality: Adequate MEASUREMENTS (Male / Female) Normal Values 2D ECHO LV Diastolic Diameter PLAX 4.7 cm 4.2 - 5.9 / 3.9 - 5.3 cm IVS Diastolic Thickness 1.5 cm 0.6 - 1.0 / 0.6 - 0.9 cm IVS Systolic Thickness 1.8 cm LVPW Diastolic Thickness 1.1 cm 0.6 - 1.0 / 0.6 - 0.9 cm LVPW Systolic Thickness 1.6 cm LVOT Diameter 1.9 cm LV Ejection Fraction 2D Teich 54.3 % LV Ejection Fraction MOD 4C 43.8 % LV Ejection Fraction MOD 2C 51.8 % LV Ejection Fraction 2C AL 53.9 % LA Diameter 3.1 cm Aorta at Sinotubular Diameter 2.7 cm IVC Diameter 1.6 cm M-MODE LA Ao Ratio MM 1.1 AV Cusp Separation MM 1.8 cm DOPPLER AV Peak Velocity 117.0 cm/s LVOT Peak Velocity 80.0 cm/s AV Area Cont Eq vti 1.9 cm squared AV Area Cont Eq pk 2.0 cm squared MV Peak Velocity 106.0 cm/s MV Area PHT 2.4 cm squared Mitral E to A Ratio 0.6 TR Peak Velocity 290.0 cm/s TR Peak Gradient 33.6 mmHg TV Peak E Velocity 41.0 cm/s Right Atrial Pressure 3.0 mmHg Pulmonary Artery Systolic Pressu 36.6 mmHg PV Peak Velocity 84.0 cm/s FINDINGS Left Ventricle Mild diffuse hypokinesis of the septum with an LV ejection fraction of 52%.Grade I/IV diastolic dysfunction (abnormal relaxation filling pattern), normal to mildly elevated filling pressures. Right Ventricle The right ventricle is normal in size and function. Right Atrium The right atrium is normal in size. Left Atrium The left atrium is normal in size. Mitral Valve Trace mitral valve regurgitation. Aortic Valve Trace aortic valve regurgitation. Tricuspid Valve Trace to mild tricuspid valve regurgitation. Estimated pulmonary artery peak systolic pressure 37 mmHg Pulmonic Valve Trace pulmonary valve regurgitation. Pericardium Normal pericardium without effusion. Aorta Normal aortic annulus size. IVC Inferior vena cava not visualized. CONCLUSIONS Mild diffuse hypokinesis of the septum with an LV ejection fraction of 52%. Grade I/IV diastolic dysfunction (abnormal relaxation filling pattern), normal to mildly elevated filling pressures. Trace of aortic, mitral and pulmonary rotation. Trace to mild tricuspid regurgitation. Estimated pulmonary artery peak systolic pressure 37 mmHg There is no pericardial effusion. There are no intracardiac masses. Dr Segundo Clemente MD FACC (Electronically Signed) Final Date: 30 March 2024 13:42 S
--- NOTE | 2024-03-29 18:13 | ECG_ITS ---
[employer] Test Date: 2024-03-30 Pat Name: Obed Turner Department: Room: 259 Gender: Male [employer]: : 1940 Requested By: Isaias Salazar Order Number: [id number] Shane MD: Segundo Clemente M.D. Interpretive Statements PROCEDURE: At the baseline, the EKG revealed normal sinus rhythm with probable progression. Possible old septal [place]. Diffuse nonspecific ST-T changes.. The baseline heart was 75 bpm with a blood pressue of 155/63 mm of Hg Lexiscan was infused over a period of 20 seconds. A total of 0.4 milligrams of Lexiscan was infused. The stress phase was continued for a total of 5 minutes. Heart rate at the end of the stress phase was 90 bpm with a blood pressure 108/46 mm of Hg. The EKG at the peak infusion revealed more prominent ST-T changes. Sestamibi was injected 20 seconds after the Lexiscan infusion. Heart rate at the end of the recovery phase was 92 bpm with a blood pressure of 123/64 mm of Hg. CONCLUSION: 1. Nonspecific EKG changes with the LexiScan infusion 2. No LexiScan induced chest pain or cardiac arrhythmia 3. Normal blood pressure and heart rate response 4. Sestamibi/sestamibi perfusion scan pending; see separate report. Lung unchanged pre/post procedure; Intraprocedure shortess of breath; Symptoms resoled by discharge Electronically Signed On 04-04-2024 19:16:56 CDT by Segundo Clemente M.D. [email or web address]
[2024-03-29] MEDS: HYDROmorphone 1 mg/mL INJ 1 mL 0.5 MG IVP (18:40)
[2024-03-29 18:53] LABS: Troponin(5th) Baseline 17 ng/L (0-15)
[2024-03-29 19:00] LABS: Procalcitonin 0.05 ng/mL (0-0.5)
[2024-03-29 19:37] LABS: Troponin 5 2HR 19.72 ng/L (0-15); Troponin 5 2HR Delta 2.72 ABS# (0-10)
--- NOTE | 2024-03-29 20:16 | ECG_ITS ---
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 Measurements Intervals [place] Rate: 69 P: 77 [place]: 175 QRS: 68 QRSD: 86 T: -68 QT: 405 QTc: 436 Interpretive Statements SINUS RHYTHM SEPTAL MYOCARDIAL INFARCTION , PROBABLY OLD [40+ ms Q WAVE IN V1/V2] MODERATE T-WAVE ABNORMALITY, CONSIDER INFERIOR ISCHEMIA [-0.1+ mV T-WAVE IN II/aVF] Baseline artifacts, need to repeat Compared to ECG 03/29/2024 16:43:40 Myocardial infarct finding now present T-wave abnormality still present Possible ischemia still present May need to repeat Electronically Signed On 03-31-2024 16:53:07 CDT by Segundo Clemente M.D. [id number]
[2024-03-29] MEDS: sodium chloride 0.9% 1,000 ML 75 ML IV (21:44)
[2024-03-29] MEDS: heparin 5,000 unit/mL INJ 1 mL 5000 UNIT SUBCUT (21:46)
[2024-03-29] MEDS: morphine 4 mg/mL SDV 1 mL 2 MG IVP (21:46)
[2024-03-29] MEDS: zolpidem 5 mg Tablet PO (21:46)
[2024-03-29] MEDS: amlodipine 5 mg Tablet PO (21:46)
[2024-03-29] MEDS: ALPRAZolam 0.5 mg Tablet 1 MG PO (22:07)
[2024-03-29] MEDS: oxyCODONE 5 mg IR Tab/Cap 10 MG PO (22:16)
[2024-03-29 22:19] LABS: Thyroid Stimulating Hormone 2.38 uIU/mL (0.27-4.20)
[2024-03-30] VITALS (26 sets, daily range): BP systolic 105–175; BP diastolic 58–87; PULSE 60–93; RESP 14–19; TEMP 36.3–37.7; O2SAT 92–100
[2024-03-30 00:54] LABS: Basophils % 0.4 %; Eosinophils # 0.1 10^3/uL (0.0-0.8); Eosinophils % 1.5 %; Hematocrit 38.2 % (37-53); Lymphocytes # 1.1 10^3/uL (0.8-4.8); Lymphocytes % 12.9 %; Mean Corpuscular HGB Conc 31.7 g/dL (30-55); Mean Corpuscular Hemoglobin 28.7 pg (27-33); Mean Corpuscular Volume 90.5 fl (82-101); Mean Platelet Volume 8.8 fL (7.4-10.4); Monocytes # 0.5 10^3/uL (0.2-0.9); Monocytes % 6.2 %; Neutrophils # 6.62 10^3/uL (1.8-7.7); Neutrophils % 78.9 %; Nucleated Red Blood Cells % 0 %; Platelet Count 183 10^3/cmm (157-399); Red Blood Count 4.22 10^6/uL (3.85-5.65); Red Cell Distribution Width 13.9 % (12.1-15.1); White Blood Count 8.39 10^3/uL (3.29-11.43)
[2024-03-30 01:10] LABS: Troponin 5 6HR 20.27 ng/L (0-15); Troponin 5 6HR Delta 3.27 ng/L (0-12)
[2024-03-30 01:14] LABS: Alanine Aminotransferase 10 U/L (0-41); Albumin Level 3.5 g/dL (3.5-5.2); Alkaline Phosphatase 99 U/L (40-130); Anion Gap 12.7 (5-19); Aspartate Amino Transferase 16 U/L (0-40); Blood Urea Nitrogen 19 mg/dL (8-23); Calcium 8.5 mg/dL (8.5-10.5); Carbon Dioxide 25 mmol/L (22-29); Chloride 103 mmol/L (98-107); Chol HDL Ratio 2.97 mg/dL (1.0-5.00); Cholesterol 107 mg/dL (0-200); Creatinine Clr Calc Pharmacy 37.9107; Estmated Average Glucose 114; Globulin 2.1 g/dL (1.3-4.6); Glucose 143 mg/dL (65-115); HDL Cholesterol 36 mg/dL (60-100); Hemoglobin A1C 5.6 % (4.0-6.0); LDL Cholesterol Calculated 62 mg/dL (50-129); LDL HDL Ratio 1.72 RATIO (0.00-3.22); Magnesium 1.9 mg/dL (1.7-2.3); Osmolality Calculated 287 mOsm/kg (285-295); Phosphorus 3.3 mg/dL (2.5-4.5); Potassium 4.7 mmol/L (3.5-5.1); Sodium 136 mmol/L (136-145); Total Bilirubin 0.5 mg/dL (0.15-1.2); Total Protein 5.6 g/dL (6.6-8.7); Triglycerides 46 mg/dL (0-150)
--- NOTE | 2024-03-30 01:31 | ECG_ITS ---
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 Measurements Intervals [place] Rate: 68 P: 64 [place]: 181 QRS: 33 QRSD: 82 T: 43 QT: 386 QTc: 413 Interpretive Statements SINUS RHYTHM WITH OCCASIONAL SUPRAVENTRICULAR PREMATURE COMPLEXES SEPTAL MYOCARDIAL INFARCTION , PROBABLY OLD [40+ ms Q WAVE IN V1/V2] Non Specific ST-T changes Compared to ECG 03/29/2024 18:32:29 T-wave abnormality no longer present Possible ischemia no longer present Myocardial infarct finding still present Electronically Signed On 04-01-2024 01:00:10 CDT by Segundo Clemente M.D. [id number]
[2024-03-30] MEDS: regadenoson 0.4 Mg/5 ml Syringe IVP (07:18)
--- NOTE | 2024-03-30 08:20 | P.ANESASSM_ITS ---
Pre-Anesthetic Assessment Height/Weight: Height 5 ft 11 in Weight 174 lb 6.4 oz Temp Pulse Resp BP Pulse Ox O2 Del Method 99.3 F 93 18 123/64 92 Room Air 03/30/24 04:00 03/30/24 07:26 03/30/24 04:00 03/30/24 07:26 03/30/24 04:00 03/30/24 01:34 Preop Diagnosis: Hip fracture Operation Date: 03/30/24 12:00 Proposed Procedures p Trochanteric Femoral Nail(Right) - Britton Martínez, DO Was Beta Isaak taken within 24 hours: N/A Was Clonidine taken within 24 hours: N/A Social No alcohol and No tobacco Airway Submandibular: within normal limits Cervical ROM: within normal limits Mallampati: Class III Dentition: false Anesthetic Plan ASA status: 3 Anesthesia: General Other: No prior issues with anesthesia NPO since yesterday Patient initially presented yesterday after following and breaking his hip. Patient has reportedly had about 2 falls per week over the last months Patient was seen by Dr. Clemente, cardiology, on 03/16/2024. He he recommended a stress test at that time due to dyspnea on exertion. Stress test performed today, spoke to Dr. Clemente personally and he states that stress test was WNL. No further workup recommended from cardiology prior to surgery Patient has a prior CABG history in 2019 Hypertension on amlodipine and carvedilol GERD on omeprazole Labs 03/30/2024 reviewed and acceptable for procedure. Hemoglobin 12.1. Creatinine 1.6 which is around baseline EKG showing sinus rhythm with occasional PVC. Septal IN noted, appears to be old. Noted on previous EKGs Medications/Allergies Home Medications Medication Instructions Recorded Confirmed Last Taken Type atorvastatin 40 mg tablet 40 mg PO DAILY 07/01/19 03/30/24 03/29/24 History finasteride 5 mg tablet 5 mg PO DAILY 07/01/19 03/30/24 03/29/24 History omeprazole 20 mg capsule,delayed 20 mg PO DAILY 07/01/19 03/30/24 03/29/24 History release Lumbar Corset Brace #1 ea 02/05/22 03/30/24 Unknown Rx DME: Bed rail #1 ea 02/13/22 03/30/24 Unknown Rx DME: Wedge Pillow #1 ea 02/13/22 03/30/24 Unknown Rx alprazolam 1 mg tablet 1 mg PO QID PRN Anxiety 03/25/22 03/29/24 03/28/24 History Rolling Walker #1 ea 05/13/22 03/30/24 Unknown Rx Rolling Walker with Seat #1 ea 05/14/22 03/30/24 Unknown Rx zolpidem 5 mg tablet 5 mg PO BEDTIME 09/11/23 03/29/24 03/28/24 History carvedilol 3.125 mg tablet 3.125 mg PO BID 11/28/23 03/30/24 03/29/24 History lactulose 10 gram/15 mL oral 15 ml PO DAILY PRN Constipation 11/28/23 03/30/24 Unknown History solution nitroglycerin 0.4 mg sublingual See Rx Instructions .Route .COMPLEX 11/28/23 03/30/24 Unknown History tablet oxycodone 10 mg tablet 10 mg PO Q4H PRN Pain 11/28/23 03/30/24 03/29/24 History amlodipine 5 mg tablet See Rx Instructions .Route 02/23/24 03/30/24 03/29/24 Rx .COMPLEX #90 tabs tamsulosin 0.4 mg capsule 0.4 mg PO BID 03/30/24 03/30/24 03/29/24 History zolpidem 10 mg tablet 10 mg PO DAILY 03/30/24 03/30/24 03/28/24 History Allergies Allergy/AdvReac Type Severity Reaction Status Date / Time horse serum Allergy Severe Unknown Uncoded 03/16/24 15:52 Current Medications Generic Name Dose Route Start Last Admin Trade Name Love PRN Reason Stop Dose Admin Alprazolam 1 mg 03/29/24 21:29 03/29/24 22:07 Alprazolam 0.5 Mg Tablet PO 1 mg QID PRN Administration Anxiety Amlodipine Besylate 5 mg 03/29/24 21:22 03/29/24 21:46 Amlodipine 5 Mg Tablet PO 5 mg DAILY DAVY Administration Heparin Sodium (Porcine) 5,000 unit 03/29/24 21:22 03/29/24 21:46 Heparin 5,000 Unit/Ml Inj 1 Ml SUBCUT 5,000 unit Q12H DAVY Administration Sodium Chloride 1,000 mls @ 75 mls/hr 03/29/24 21:22 03/29/24 21:44 Sodium Chloride 0.9% IV 03/30/24 21:21 75 mls/hr .[id number] DAVY Administration Morphine Sulfate 2 mg 03/29/24 21:22 03/29/24 21:46 Morphine 4 Mg/Ml Sdv 1 Ml IVP 2 mg Q4H PRN Administration SEVERE PAIN Oxycodone HCl 10 mg 03/29/24 21:29 03/29/24 22:16 Oxycodone 5 Mg Ir Tab/Cap PO 10 mg Q4H PRN Administration Pain Zolpidem Tartrate 5 mg 03/29/24 21:22 03/29/24 21:46 Zolpidem 5 Mg Tablet PO 5 mg BEDTIME DAVY Administration PFSH Anesthesia Medical History Orthostatic hypotension dysautonomic syndrome Atherosclerosis of coronary artery CABG 07/21/2018 GERD (gastroesophageal reflux disease) Hyperlipidemia BPH (benign prostatic hyperplasia) Chronic kidney disease Coronary artery disease Anxiety Depression Anemia CHF (congestive heart failure) Pulmonary embolism HTN (hypertension) Surgical History S/P shoulder surgery Bilateral Previous back surgery X2 S/P knee surgery S/P CABG (coronary artery bypass graft) 07/21/2018 Family History Father Lung disease Mother Cancer Sister Diabetes Denies family history of CAD (coronary artery disease) Clotting disorder Dementia Chronic kidney disease (CKD) Suicide Anesthesia complication Bleeding disorder Stroke Social History Smoking and tobacco/nicotine status: former use of tobacco/nicotine Alcohol intake: never Substance/Drug Use: never Data Anesthesia 03/30/24 00:34 03/30/24 00:34 Short CBC 03/29/24 03/30/24 Range/Units 16:48 00:34 WBC 8.92 8.39 (3.29-11.43) 10^3/uL Hgb 12.40 12.10 (11.27-16.99) g/dL Hct 39.9 38.2 (37-53) % MCV 92.4 90.5 (82-101) fl Plt Count 195 183 (157-399) 10^3/cmm Neut % (Auto) 65.6 78.9 % Neut # (Auto) 5.84 6.62 (1.8-7.7) 10^3/uL BMP 03/29/24 03/30/24 16:48 00:34 Sodium 136 136 Potassium 4.4 4.7 Chloride 103 103 Carbon Dioxide 25 25 BUN 19 19 Creatinine 1.8 H 1.6 H Glucose 112 143 H Calcium 9.1 8.5 Cardiac Enzymes 03/29/24 03/29/24 03/30/24 Range/Units 16:48 19:03 00:34 Troponin T Baseline 17 H (0-15) ng/L Troponin T 120 Minute 19.72 H (0-15) ng/L Delta Troponin T 2.72 (0-10) ABS# Troponin T Hi Sens 6Hr 20.27 H (0-15) ng/L Troponin T Hi Sens 6Hr Delta 3.27 (0-12) ng/L Liver Function 03/29/24 03/30/24 Range/Units 16:48 00:34 Total Bilirubin 0.4 0.5 (0.15-1.2) mg/dL AST 17 16 (0-40) U/L ALT 11 10 (0-41) U/L Alkaline Phosphatase 100 99 (40-130) U/L Albumin 3.7 3.5 (3.5-5.2) g/dL Urine 03/29/24 Range/Units 17:21 Urine Color Yellow (Yellow) Urine Appearance Clear (CLEAR) Urine pH 6.5 (5-7) Ur Specific [place] 1.009 (1.005-1.030) Urine Protein Negative (Negative) Urine Glucose (UA) Negative (Normal) Urine Ketones Negative (Negative) Urine Nitrate Negative (Negative) Urine Bilirubin Negative (Negative) Ur Leukocyte Esterase Negative (Negative) Urine RBC 0-2 (0-2) /hpf Urine WBC 0-5 (0-5) /hpf Cardiac Studies: 2 Echocardiogram 01/31/21 Sestamibi Stress Test (Cardiology) 03/29 Cardiac Event Monitor 03/07/20
--- NOTE | 2024-03-30 08:33 | P.CONIM_ITS ---
Providers/Reason For Consult 2 Consulting Physician/Specialty*: NATALYA Clemente MD/cardiology Reason for Consult*: Patient with history of coronary artery disease, admitted to the hospital with features of a compression fracture of the lumbar vertebrae. For preop evaluation Requesting Physician: Dr. Salazar Attending Physician: Isaias Salazar MD Primary Care Provider: Ganesh Albarado MD History of Present Illness History of Present Illness Obed Turner Sr is a 84 year old male with a history of atherosclerotic heart disease, status post coronary bypass surgery, apparently had a fall at home and sustained vertebral fracture. The patient is admitted to hospital for further evaluation and management. Cardiology consult is requested for a preop cardiac evaluation. This patient apparently caught off balance and then fell down. He did not have any palpitation, dizziness or syncopal episodes prior to this event or following the event. Patient has not had any chest pain or any unusual shortness of breath. According to his , his functional status has been slowly deteriorating. He has been having significant shortness of breath with activities. Denies any orthopnea. Has been having occasional leg swelling. No fever or chills. No significant cough The patient has been compliant with medications. He has a history of hypertension, pulmonary embolism and congestive heart failure. Currently he denies any fever or chills. No cough. No unusual leg swelling. No other specific complaints. Review of Systems 2 Narrative: CONSTITUTIONAL: No fever or chills. EYES: No blurring of vision or other visual disturbances lately. ENT: No hoarseness of voice, auditory disturbances or sore throat. CARDIOVASCULAR: As mentioned above. RESPIRATORY: No significant cough. GASTROINTESTINAL: No hematemesis or melena. GENITOURINARY: No dysuria or hematuria. INTEGUMENTARY: No skin rashes or history of skin cancer. NEURO: No transient ischemic attacks or amaurosis. PSYCHIATRIC: No history of psychosis or major depression. HEMATOLOGIC: No bleeding disorders or significant anemia. ENDOCRINE: No history of polyuria or polydipsia. MUSCULOSKELETAL: As mentioned above ALLERGY/IMMUNOLOGY: As mentioned above. Medications/Allergies Home Medications Medication Instructions Recorded Confirmed Last Taken Type atorvastatin 40 mg tablet 40 mg PO DAILY 07/01/19 03/30/24 03/29/24 History finasteride 5 mg tablet 5 mg PO DAILY 07/01/19 03/30/24 03/29/24 History omeprazole 20 mg capsule,delayed 20 mg PO DAILY 07/01/19 03/30/24 03/29/24 History release Lumbar Corset Brace #1 ea 02/05/22 03/30/24 Unknown Rx DME: Bed rail #1 ea 02/13/22 03/30/24 Unknown Rx DME: Wedge Pillow #1 ea 02/13/22 03/30/24 Unknown Rx alprazolam 1 mg tablet 1 mg PO QID PRN Anxiety 03/25/22 03/29/24 03/28/24 History Rolling Walker #1 ea 05/13/22 03/30/24 Unknown Rx Rolling Walker with Seat #1 ea 05/14/22 03/30/24 Unknown Rx zolpidem 5 mg tablet 5 mg PO BEDTIME 09/11/23 03/29/24 03/28/24 History carvedilol 3.125 mg tablet 3.125 mg PO BID 11/28/23 03/30/24 03/29/24 History lactulose 10 gram/15 mL oral 15 ml PO DAILY PRN Constipation 11/28/23 03/30/24 Unknown History solution nitroglycerin 0.4 mg sublingual See Rx Instructions .Route .COMPLEX 11/28/23 03/30/24 Unknown History tablet oxycodone 10 mg tablet 10 mg PO Q4H PRN Pain 11/28/23 03/30/24 03/29/24 History amlodipine 5 mg tablet See Rx Instructions .Route 02/23/24 03/30/24 03/29/24 Rx .COMPLEX #90 tabs tamsulosin 0.4 mg capsule 0.4 mg PO BID 03/30/24 03/30/24 03/29/24 History zolpidem 10 mg tablet 10 mg PO DAILY 03/30/24 03/30/24 03/28/24 History Allergies Allergy/AdvReac Type Severity Reaction Status Date / Time horse serum Allergy Severe Unknown Uncoded 03/16/24 15:52 Current Medications Generic Name Dose Route Start Last Admin Trade Name Freq PRN Reason Stop Dose Admin Alprazolam 1 mg 03/29/24 21:29 03/29/24 22:07 Alprazolam 0.5 Mg Tablet PO 1 mg QID PRN Administration Anxiety Amlodipine Besylate 5 mg 03/29/24 21:22 03/29/24 21:46 Amlodipine 5 Mg Tablet PO 5 mg DAILY DAVY Administration Heparin Sodium (Porcine) 5,000 unit 03/29/24 21:22 03/29/24 21:46 Heparin 5,000 Unit/Ml Inj 1 Ml SUBCUT 5,000 unit Q12H DAVY Administration Sodium Chloride 1,000 mls @ 75 mls/hr 03/29/24 21:22 03/29/24 21:44 Sodium Chloride 0.9% IV 03/30/24 21:21 75 mls/hr .[id number] DAVY Administration Morphine Sulfate 2 mg 03/29/24 21:22 03/29/24 21:46 Morphine 4 Mg/Ml Sdv 1 Ml IVP 2 mg Q4H PRN Administration SEVERE PAIN Oxycodone HCl 10 mg 03/29/24 21:29 03/29/24 22:16 Oxycodone 5 Mg Ir Tab/Cap PO 10 mg Q4H PRN Administration Pain Zolpidem Tartrate 5 mg 03/29/24 21:22 03/29/24 21:46 Zolpidem 5 Mg Tablet PO 5 mg BEDTIME DAVY Administration PFSH Acute 2 PFSH: Medical History Orthostatic hypotension dysautonomic syndrome Atherosclerosis of coronary artery CABG 07/21/2018 GERD (gastroesophageal reflux disease) Hyperlipidemia BPH (benign prostatic hyperplasia) Chronic kidney disease Coronary artery disease Anxiety Depression Anemia CHF (congestive heart failure) Pulmonary embolism HTN (hypertension) Surgical History S/P shoulder surgery Bilateral Previous back surgery X2 S/P knee surgery S/P CABG (coronary artery bypass graft) 07/21/2018 Family History Father Lung disease Mother Cancer Sister Diabetes Denies family history of CAD (coronary artery disease) Clotting disorder Dementia Chronic kidney disease (CKD) Suicide Anesthesia complication Bleeding disorder Stroke Social History Smoking and tobacco/nicotine status: former use of tobacco/nicotine Alcohol intake: never Substance/Drug Use: never Vitals/I&O/Wt Last Vital Signs Temp 99.3 F 03/30/24 04:00 Pulse 93 03/30/24 07:26 Resp 18 03/30/24 04:00 BP 123/64 03/30/24 07:26 Pulse Ox 92 03/30/24 04:00 O2 Del Method Room Air 03/30/24 01:34 03/29/24 03/30/24 03/30/24 22:59 06:59 14:59 Intake Total 60 / 60 0 / 60 Output Total 900 / 900 550 / 1450 Balance -840 / -840 -550 / -1390 Weight last 48 hrs Weight 174 lb 6.4 oz Weight 166 lb Physical Exam 2 Narrative: GENERAL: The patient is alert and oriented times three. Not in any acute distress. HEENT: No significant pallor, icterus or lymphadenopathy.Oral cavity: There are no mucous membrane lesions. NECK: Trachea appears to be central. No masses noted. No JVD or thyromegaly appreciated. RESPIRATORY: Chest is symmetrical. No intercostals muscle retraction or any accessory muscle activation. There is no chest wall tenderness. Breath sounds are heard bilaterally. No rales or rhonchi heard. No evidence of any consolidation. BREASTS: Deferred. HEART: The heart sounds are normal. No S3 or S4. Early systolic murmur the left sternal border. No diastolic murmurs. No pericardial rub ABDOMEN: No vessel pulsations or distention. No tenderness. No organomegaly appreciated. Bowel sounds are normally heard. : Deferred. RECTAL: Deferred. LYMPHATIC: No lymphadenopathy noted in the neck. EXTREMITIES: No edema or cyanosis. No clubbing. MUSCULOSKELETAL: No acute joint deformities or swelling SKIN: There are no significant rashes or ecchymosis NEUROPSYCHIATRIC: The patient is alert and oriented x3. Appears to be in a good mood. No tremors or rigidity noted. Data 03/30/24 00:34 03/30/24 00:34 Other Labs: Laboratory Last Values WBC 8.39 10^3/uL (3.29-11.43) 03/30/24 00:34 RBC 4.22 10^6/uL (3.85-5.65) 03/30/24 00:34 Hgb 12.10 g/dL (11.27-16.99) 03/30/24 00:34 Hct 38.2 % (37-53) 03/30/24 00:34 MCV 90.5 fl (82-101) 03/30/24 00:34 MCH 28.7 pg (27-33) 03/30/24 00:34 MCHC 31.7 g/dL (30-55) 03/30/24 00:34 RDW 13.9 % (12.1-15.1) 03/30/24 00:34 Plt Count 183 10^3/cmm (157-399) 03/30/24 00:34 MPV 8.8 fL (7.4-10.4) 03/30/24 00:34 Neut % (Auto) 78.9 % 03/30/24 00:34 Lymph % (Auto) 12.9 % 03/30/24 00:34 [place] % (Auto) 6.2 % 03/30/24 00:34 Eos % (Auto) 1.5 % 03/30/24 00:34 Baso % (Auto) 0.4 % 03/30/24 00:34 Neut # (Auto) 6.62 10^3/uL (1.8-7.7) 03/30/24 00:34 Lymph # (Auto) 1.1 10^3/uL (0.8-4.8) 03/30/24 00:34 [place] # (Auto) 0.5 10^3/uL (0.2-0.9) 03/30/24 00:34 Eos # (Auto) 0.1 10^3/uL (0.0-0.8) 03/30/24 00:34 Baso # (Auto) 0.0 10^3/uL (0.0-0.1) 03/30/24 00:34 Nucleated RBC % (auto) 0 % 03/30/24 00:34 Nucleated RBCs # 0.0 /100WBC 03/30/24 00:34 Sodium 136 mmol/L (136-145) 03/30/24 00:34 Potassium 4.7 mmol/L (3.5-5.1) 03/30/24 00:34 Chloride 103 mmol/L (98-107) 03/30/24 00:34 Carbon Dioxide 25 mmol/L (22-29) 03/30/24 00:34 Anion Gap 12.7 (5-19) 03/30/24 00:34 BUN 19 mg/dL (8-23) 03/30/24 00:34 Creatinine 1.6 mg/dL (0.7-1.2) H 03/30/24 00:34 GFR Calculation Not Reportable 03/30/24 00:34 Glucose 143 mg/dL (65-115) H 03/30/24 00:34 Estimat Average Glucose 114 03/30/24 00:34 Hemoglobin A1c 5.6 % (4.0-6.0) 03/30/24 00:34 Calculated Osmolality 287 mOsm/kg (285-295) 03/30/24 00:34 Calcium 8.5 mg/dL (8.5-10.5) 03/30/24 00:34 Phosphorus 3.3 mg/dL (2.5-4.5) 03/30/24 00:34 Magnesium 1.9 mg/dL (1.7-2.3) 03/30/24 00:34 Total Bilirubin 0.5 mg/dL (0.15-1.2) 03/30/24 00:34 AST 16 U/L (0-40) 03/30/24 00:34 ALT 10 U/L (0-41) 03/30/24 00:34 Alkaline Phosphatase 99 U/L (40-130) 03/30/24 00:34 Troponin T Baseline 17 ng/L (0-15) H 03/29/24 16:48 Troponin T 120 Minute 19.72 ng/L (0-15) H 03/29/24 19:03 Delta Troponin T 2.72 ABS# (0-10) 03/29/24 19:03 Troponin T Hi Sens 6Hr 20.27 ng/L (0-15) H 03/30/24 00:34 Troponin T Hi Sens 6Hr Delta 3.27 ng/L (0-12) 03/30/24 00:34 Total Protein 5.6 g/dL (6.6-8.7) L 03/30/24 00:34 Albumin 3.5 g/dL (3.5-5.2) 03/30/24 00:34 Globulin 2.1 g/dL (1.3-4.6) 03/30/24 00:34 Triglycerides 46 mg/dL (0-150) 03/30/24 00:34 Cholesterol 107 mg/dL (0-200) 03/30/24 00:34 LDL Cholesterol, Calc 62 mg/dL (50-129) 03/30/24 00:34 HDL Cholesterol 36 mg/dL (60-100) L 03/30/24 00:34 LDL/HDL Ratio 1.72 RATIO (0.00-3.22) 03/30/24 00:34 Cholesterol/HDL Ratio 2.97 mg/dL (1.0-5.00) 03/30/24 00:34 Procalcitonin 0.05 ng/mL (0-0.5) 03/29/24 16:48 TSH 2.38 uIU/mL (0.27-4.20) 03/29/24 16:48 Urine Color Yellow (Yellow) 03/29/24 17:21 Urine Appearance Clear (CLEAR) 03/29/24 17:21 Urine pH 6.5 (5-7) 03/29/24 17:21 Ur Specific [place] 1.009 (1.005-1.030) 03/29/24 17:21 Urine Protein Negative (Negative) 03/29/24 17:21 Urine Glucose (UA) Negative (Normal) 03/29/24 17:21 Urine Ketones Negative (Negative) 03/29/24 17:21 Urine Blood Negative (Negative) 03/29/24 17:21 Urine Nitrate Negative (Negative) 03/29/24 17:21 Urine Bilirubin Negative (Negative) 03/29/24 17:21 Urine Urobilinogen 1.0 mg/dL (Negative) 03/29/24 17:21 Ur Leukocyte Esterase Negative (Negative) 03/29/24 17:21 Urine RBC 0-2 /hpf (0-2) 03/29/24 17:21 Urine WBC 0-5 /hpf (0-5) 03/29/24 17:21 Ur Squamous Epith Cells 0-5 /hpf (0-5) 03/29/24 17:21 Amorphous Sediment Not Reportable 03/29/24 17:21 Urine Bacteria None seen /hpf (NONE) 03/29/24 17:21 Hyaline Casts 0-4 /lpf H 03/29/24 17:21 Other data: EKG from today, 03/30/2024 Normal sinus rhythm with a poor R wave progression. Possible old septal DE. Diffuse nonspecific ST-T changes. Myocardial perfusion imaging from today 03/30/2024 1. Myocardial perfusion imaging revealing small area of persistent decreased tracer uptake involving the apical inferior and apical lateral segments suggesting myocardial scarring versus attenuation artifact 2. Normal LV ejection fraction of 66%. 3. LV wall motion analysis revealing no gross wall motion abnormalities. 4. Normal LV volume Low probability for coronary ischemia, based on the above findings Echocardiogram done in 2020 1. Normal left ventricular size, low normal systolic function and wall thickness, with no regional wall motion abnormalities. Left ventricular ejection fraction is estimated at 50-55 %. Grade I diastolic dysfunction (abnormal relaxation filling pattern), normal to mildly elevated filling pressures. 2. Normal right ventricular size and systolic function. 3. Normal pulmonary artery pressure. 4. Mild tricuspid valve regurgitation. 5. Compared to previous echocardiogram dated 08/12/2018, left ventricle systolic function may have improved somewhat. A&P Assessment and plan (1) S/P CABG (coronary artery bypass graft): This patient currently has no specific symptoms of coronary ischemia. The Myocardial perfusion imaging is unremarkable. At this point, he may continue on the current management. (2) Pulmonary embolism: Has not had a recurrence of pulmonary embolism in the recent past. Qualifiers: Acute cor pulmonale presence: without acute cor pulmonale Chronicity: c hronic Pulmonary embolism type: unspecified Qualified Code(s): I27.82 - Chronic pulmonary embolism (3) CHF (congestive heart failure): Currently seems to be compensated. Qualifiers: Heart failure chronicity: chronic Heart failure type: diastolic Qualified Code(s): I50.32 - Chronic diastolic (congestive) heart failure Plan The other problems are Chronic kidney disease Mild anemia Anxiety/depressive illness Based on the current information, the patient's cardiac risk with the proposed surgery is minimal to moderate. If he continues to remain stable, may go ahead with the procedure. He needs to be closely monitored in the perioperative phase for any rhythm abnormalities. May require any other specific cardiac interventions at this point. Thank for the opportunity to evaluate this patient and make these recommendations Coding Level of Care Code 76403 Diagnoses S/P CABG (coronary artery bypass graft) Z95.1 Chronic pulmonary embolism without acute cor pulmonale, unspecified pulmonary embolism type I27.82 Acute cor pulmonale presence: without acute cor pulmonale Chronicity: chronic Pulmonary embolism type: unspecified Chronic diastolic congestive heart failure I50.32 Heart failure chronicity: chronic Heart failure type: diastolic
--- NOTE | 2024-03-30 09:53 | PC.CHAP ---
Pastoral Care Encounter/Spiritual Assessment Type of Contact [] Declined gear finisher visit [] Patient/Family/Request visit [] Outpatient visit [] Follow-up visit [] Physician referral [] Code/Alert [x] Routine visit [] Staff referral [] Actively dying [] Patient sleeping [] Family support [] [] Out of room [] Palliative care [] [] Receiving care in room [] Pre-surgical visit [] Trauma [] Long length of stay [] ICU visit [] Other: Relational/Emotional Strength [x] Patient feels connected with others/family/visitors/staff [] Distress [] Loneliness/isolation [] Abandonment Spirituality of Patient [x] Person of Fartun [] Attends Mandaeism of their Fartun [x] Believes in Prayer [] Reads Bible or Scientologist materials [] There are Spiritual issues to be addressed Capture Manager Interventions [x] Prayer [x] Active listening [] Non-anxious presence [x] Spiritual/emotional support [] Crisis/trauma care [] Spiritual counseling [] Bereavement support [] Provided bereavement packet [] Provided Bible/devotional materials [] Provided toy/stuffed animal, coloring book to patient or family member [] Provided Communion [] Anointing/[place] [] Salvation [x] Completed spiritual assessment [] Other: Impact on Illness or Injury [] Angry [] Fearful [] Anxious [] Often cries [] Exhaustion [] Unable to work [] Unable to attend jewish [] Unable to walk/stand [] Unable to read [] Unable to drive [] Unable to eat/drink [] Unable to sleep [] Unable to be with family [] Patient intubated [] Other: Summary Time spent with patient 5 min
[2024-03-30] MEDS: cefTRIAXone 1,000 mg SDV 1000 MG IVP (10:31)
[2024-03-30] MEDS: acetaminophen 1,000 MG/100 ML PIGGYBACK 400 MG IV (11:01)
[2024-03-30] MEDS: ketorolac 30 mg/mL INJ IVP (11:05)
[2024-03-30] MEDS: sodium chloride 0.9% 1,000 ML 30 ML IV (11:06)
--- NOTE | 2024-03-30 11:47 | W.PM.OPSUD ---
Surgery/Procedure H&P Update DATE OF PROCEDURE: March 30, 2024 DATE H&P PERFORMED: 03/29/24 H&P UPDATE INFORMATION: I have reviewed H&P completed within last 30 days, I have examined patient prior to procedure and No changes to prior documentation PREOP DIAGNOSIS: Right hip intertrochanteric femur fracture PRIMARY INDICATION FOR PROCEDURE: right hip intertrochanteric femur fracture PLANNED PROCEDURE: Operation Date: 03/30/24 12:00 Proposed Procedures p Trochanteric Femoral Nail(Right) - Britton Soliz DO
[2024-03-30] MEDS: ceFAZolin 2,000 mg SDV 2000 MG IVP (12:25)
--- NOTE | 2024-03-30 13:13 | ANE.PACU2 ---
Inpatient post-anesthesia follow up: Airway intact: Yes Vital signs: Temperature 98.8 F Pulse Rate 73 Respiratory Rate 17 Blood Pressure 125/67 Pulse Oximetry 95 Oxygen Delivery Me thod Room Air Oxygen Flow Rate Fraction of Inspir ed Oxygen Hydration adequate: Yes Nausea and vomiting: No Pain level: 1 Mental status: Baseline
--- NOTE | 2024-03-30 13:13 | P.BOP_ITS ---
Date of Procedure: [March 30, 2024] Surgeon: [Dr. Soliz DO] Education And Training Manager(s): [Wei Soliz PA-C] Procedure(s) performed: [Right hip trochanteric femoral nail] Findings of the procedure(s): [Right hip intertrochanteric fracture procedure went well and as planned.] Estimated blood loss: [125 ml] Specimen(s) removed: [N/A ] Post-operative diagnosis: [Right hip intertrochanteric fracture.]
--- NOTE | 2024-03-30 13:18 | PM.PACU ---
PACU note Narrative: Patient is a 84-year-old male that just underwent a right hip intertrochanteric fracture ORIF. pt transferred to PACU in stable condition. Dressing is dry. pt is awake and alert. pt can wiggle toes and plantarflex and dorsiflex foot. Compartments are soft and compressible. Distal pulses are palpable toes are warm and well-perfused. Cap refill is normal and under 2 seconds. Sensation to foot is intact. Pain is controlled. Exam: awake Disposition: back to floor
--- NOTE | 2024-03-30 13:19 | P.OP_ITS ---
Operative Report Date of procedure: March 30, 2024 Surgeon: Britton Soliz DO Property And Equipment Clerk: Wei Soliz PA-C: PA was necessary for assistance in this case with leg positioning, reduction, as assistance in implantation/fixation, wound closure and dressing application. Procedure: Preoperative diagnosis: Right displaced intertrochanteric femur fracture post-op diagnosis: right displaced intertrochanteric femur fracture Procedure done: Right intertrochanteric femur fracture ORIF with cephalomedullary?nail Implants: [place] gamma?nail?short 11 mm x 180 mm x 125 degree Lag screw 10.5 mm x 105?mm Distal locking screw 5 mm x 40 mm Surgeon: Britton Soliz DO Estimated blood loss: 125 mm IV fluids: See anesthesia?record Urine output: See anesthesia?record Complications: See operative?report Findings: See operative?report narrative Condition: stable Disposition: Floor Brief History: Patient sustained a fall and was found to have a?right intertrochanteric hip fx.?Pt has?been unable to bear weight,?right hip/lower extremity shortened and externally?rotated.? At this point time Pt?was admitted by the hospitalist team and orthopedics was consulted.??Refer to consult note for detailed HPI.? We talked about treatment options as far as nonoperative and operative intervention.?Recommend?Right hip?trochanteric femur?nail.? At this point time patient would like to pursue surgical intervention for benefits of pain control and earlier mobilization.?? Patient understands the ins and outs of procedure, the?risk benefits complication alternatives of surgical nonsurgical treatment options.? Understanding?risk of surgery pt?agrees to proceed with surgical intervention all questions answered.? Consent obtained. Procedure: Patient seen evaluated in the preoperative holding area.? Consent was obtained.? Correct extremity was then marked.? Once cleared by anesthesia and the hospitalist team patient was taken back to the operative suite.? Patient und erwent anesthesia per the anesthesia department.? Once appropriately anesthetized patient was placed on a fracture [place] table.? Patient was appropriately secured to the bed.? All bony prominences were well-padded.? At this point time patient?received appropriate preoperative antibiotics.? Final timeout was performed.? Prior to beginning surgery a standard closed?reduction maneuver was placed on the [place] table and large C-arm was brought in.? After performing a closed?reduction maneuver there was able to achieve satisfactory?reduction of?right intertrochanteric femur fracture.? Fracture had near-anatomic reduction and stable fracture pattern amenable for short?nail.?? This point time the?right lower extremity was then prepped and draped in standard orthopedic fashion. A standard longitudinal incision was made just proximal to the greater?trochanter?roughly 4 cm in length sharp scalpel vision was made through skin and subcutaneous tissue.? I then utilized a blunt [place] to split? fascia and mobilized directly down to the greater?trochanter.? I then inserted my starting guidewire which was placed appropriate starting position the tip of the greater?trochanter.? This was advanced in AP and lateral films to be in center center position and advanced to the level lesser?trochanter.? This was confirmed to be in center center position on AP and lateral imaging.? Once this was done I then introduced my opening?reamer which was then subsequently guide pin?removed.? I selected a 11 mm x 180 mm x 125 degree. At this point time the?nail?was then loaded onto the [place] gamma?trochanteric?nail?guide.? This was placed within the canal and confirmed with XR and the setscrew was then gently placed not locked.? The?nail?was then impacted to appropriate depth .? At this point time I then inserted my lag screw guide and subsequently made a small incision through skin and subcutaneous tissue splitting the IT band longitudinally and the guide was placed directly onto bone.? Next I then sub sequently placed the guidewire in center center position in the head with an appropriate tip to apex distance this was confirmed with multiple orthogonal images.? Once I was satisfied with my planned lag screw placement I then measured which was?105?mm.? I then set my cannulated drill and subsequently?reamed this into the head at appropriate depth.? I then had my?rep open the 10.5 mm x 105 mm lag screw which was then opened on the back table and subsequently screwed into place over my cannulated drill guide.? This was placed with excellent tip to apex distance.? Next I then utilized the compressing device and subsequently compressed my fracture after I let off traction.? This had excellent fracture compression and opposition and closing down to my fracture line.? Next I then locked the?nail?by locking my setscrew.? This point time the guidewire as well as the sleeve was then?removed.? Next I plan for statically locking the?nail?distally.? This triple sleeve was then placed a small stab incision was made blunt dissection directly down to bone and the guide sleeve was placed and locked directly onto the bone.? I then inserted the drill bit and subsequently drilled bicortically measured appropriate length screw and then placed a 40?mm distal interlocking screw and had excellent fixation was appropriate length.? This point time is completed my construct I?remove the outer jig and took final images of AP and lateral of the?right intertrochanteric femur fracture which showed stable?reduction and stable fixation.? Incision was then thoroughly irrigated.? Hemostasis was maintained with electrocautery.? I then once again thoroughly irrigated the incisions and then subsequently closed in layered fashion of 0 Vicryl 2-0 Vicryl and doni.? [place] dressings applied.? Patient was then awakened from anesthesia transported onto the hospital bed and taken to PACU in stable condition.? Patient tolerated procedure without complications. Disposition: Patient taken to PACU in stable condition.? Postoperatively,? Patient to?receive appropriate discharge instructions as well as pain medication DVT prophylaxis postoperatively.? Patient?will be allowed weightbearing as tolerated?right lower extremity.? Will?receive appropriate postoperative antibiotics, PT/OT.? Patient to follow-up in the orthopedic office in 2 weeks.? Patients family understands and agrees with current plan.? All questions answered.
[2024-03-30 13:23] LABS: Adenovirus Not Detected (NOT DETECT); Chlamydia Pneumoniae Not Detected (NOT DETECT); Coronavirus 229E,HKU1,NL63,OC4 Not Detected (NOT DETECT); Human Metapneumovirus Not Detected (NOT DETECT); Human Rhinovirus/Enterovirus Not Detected (NOT DETECT); Influenza A Not Detected (NOT DETECT); Influenza A H1 Not Detected (NOT DETECT); Influenza A H1-2009 Not Detected (NOT DETECT); Influenza A H3 Not Detected (NOT DETECT); Influenza B Not Detected (NOT DETECT); Mycoplasma Pneumoniae Not Detected (NOT DETECT); Parainfluenza Virus Type 1 Not Detected (NOT DETECT); Parainfluenza Virus Type 2 Not Detected (NOT DETECT); Parainfluenza Virus Type 3 Not Detected (NOT DETECT); Parainfluenza Virus Type 4 Not Detected (NOT DETECT); Respiratory Syncytial Virus A Not Detected (NOT DETECT); Respiratory Syncytial Virus B Not Detected (NOT DETECT); SARS-COV-2 Not Detected (NOT DETECT)
--- NOTE | 2024-03-30 13:23 | XRR_ITS ---
PROCEDURE INFORMATION: Exam: XR Right Hip Exam date and time: 03/30/2024 1:42 PM Age: 84 years old Clinical indication: Device placement; Other: R hip troch nail; Prior surgery; Surgery date: Post-operative (0-2 days); Additional info: R hip troch nail S/P TECHNIQUE: Imaging protocol: Radiologic exam of the right hip. Views: 1 view hip with pelvis when performed. COMPARISON: CR (PELVIS, ) 03/29/2024 4:24 PM FINDINGS: Bones/joints: ORIF of the proximal right femur. Intact hardware. Posterior fusion lower lumbar spine and sacrum. Mild degenerative changes of the hips. No lytic or sclerotic bone lesion. . No acute fracture. Soft tissues: Unremarkable. XR/XR hip RT 2-3V wo/w pel* [id number] IMPRESSION: ORIF of the proximal right femur.
[2024-03-30] MEDS: tranexamic acid 1,000 mg/10mL SDV 1000 MG IV (13:28)
--- NOTE | 2024-03-30 13:53 | SUR.PHASEI ---
1310 SCD sleeves connected to pump amd pump on and working.
--- NOTE | 2024-03-30 14:53 | P.PN_ITS ---
Subjective 2 Subjective: No acute vents overnight. Patient's pain was well-controlled. He underwent cardiac stress test today morning and is planning for ORIF later in the day today. Hemodynamically has remained stable. No chest pain. Vitals/I&O/Wt Last Vital Signs Temp 98.6 F 03/30/24 14:06 Pulse 64 03/30/24 14:06 Resp 16 03/30/24 14:06 BP 154/76 03/30/24 14:06 Pulse Ox 97 03/30/24 14:06 O2 Del Method Room Air 03/30/24 14:06 03/29/24 03/30/24 03/30/24 22:59 06:59 14:59 Intake Total 60 / 60 620 / 680 257.5 / 257.5 Output Total 900 / 900 550 / 1450 425 / 425 Balance -840 / -840 70 / -770 -167.5 / -167.5 Weight last 48 hrs Weight 79.107 kg Weight 75.296 kg Physical Exam 2 Narrative: General: No acute distress, AO x 3 HEENT: PERRLA, pupils bilaterally equal and reactive Chest: Normal vesicular breath sounds, no added sounds, equal good air entry bilaterally CVS: S1-S2 regular, no murmurs, no tachycardia, no gallops, no rubs Abdomen: Soft, nontender, no organomegaly, bowel sounds present Neuro: No focal deficits, no facial deformity, AO x3, Data 03/30/24 00:34 03/30/24 00:34 A&P Assessment and plan (1) Closed intertrochanteric fracture of right hip: Orthopedics has been consulted. Plan for ORIF. Patient underwent cardiac angiogram which has been reported nonischemic. Appreciate echocardiogram. Patient has been cleared medically and from cardiac standpoint to undergo ORIF. PT/OT, perioperative antibiotics, anticoagulation as per surgical team. Will monitor hemoglobin. (2) Fall: Recurrent falls. Concerns for unstable angina. Stress test reported nonischemic. Catheter Doppler pending. (3) HTN (hypertension): Goal blood pressure less than 140/90 mmHg with mean over 65. History of dizziness for which he had been coming off of antihypertensive recently. For now continue with home dose of carvedilol and amlodipine. Will uptitrate medication as her goal blood pressures. Qualifiers: Hypertension type: essential hypertension Qualified Code(s): I10 - Essential (primary) hypertension (4) S/P CABG (coronary artery bypass graft): Follows up with Dr. Clemente as an outpatient. Last seen on 03/16. There was concern for unstable angina for which Lexiscan stress test was ordered. Continue with home dose of statin, beta-shreya. Lexiscan stress test shows persistent decreased uptake in apical inferior and apical lateral segments suggesting myocardial scarring. No concern for active ischemia. Echocardiogram shows grade 1 diastolic dysfunction, EF of 52% with PASP of 37 mmHg. (5) Hx pulmonary embolism: In the past. Not on any treatment currently. Has not had any further symptoms concerning for PE. Early ambulation. (6) History of CHF (congestive heart failure): Last echocardiogram from 2020 showed an EF of 50 to 55% with grade 1 diastolic dysfunction without regional wall motion normality. Repeat echocardiogram as above. Plan Febrile episode: Patient did have episode of fever overnight. Check respiratory viral panel. No leukocytosis, UA on admission negative for concerns for UTI. For now as patient is perioperative will start on IV ceftriaxone prophylactically 1 g daily. Continue other chronic home medications including Xanax, finasteride, oxycodone. Full code NPO. Start back on cardiac diet once cleared from surgery. Famotidine for OPD prophylaxis Heparin 5000 Q12 hourly for DVT prophylaxis Attestations 2 Medical Necessity Statement*: Requires further hospitalization for ORIF in setting of hip fracture in a patient with history of CABG, diastolic heart failure with concern for unstable angina as an outpatient. Diagnoses Closed intertrochanteric fracture of right hip S72.141A Fall W19.XXXA Essential hypertension I10 Hypertension type: essential hypertension S/P CABG (coronary artery bypass graft) Z95.1 Hx pulmonary embolism Z86.711 History of CHF (congestive heart failure) Z86.79
[2024-03-30] MEDS: amlodipine 5 mg Tablet PO (17:22)
[2024-03-30] MEDS: iron polysaccharide complex 150 mg Capsule PO (17:22)
[2024-03-30] MEDS: finasteride 5 mg Tablet PO (17:22)
[2024-03-30] MEDS: atorvastatin 40 mg Tablet PO (17:22)
[2024-03-30] MEDS: carvedilol 3.125 mg Tablet PO (17:22)
[2024-03-30] MEDS: famotidine 20 mg Tablet PO (17:22)
[2024-03-30] MEDS: docusate sodium 100 mg Capsule PO (17:22)
[2024-03-30] MEDS: acetaminophen 325 mg Tablet 650 MG PO (17:23)
[2024-03-30] MEDS: ALPRAZolam 0.5 mg Tablet 1 MG PO ×2 (17:23→23:45)
[2024-03-30] MEDS: chlorhexidine gluconate 0.12% Btl 473 mL 30 ML MUCOUS MEM ×2 (17:23→21:17)
[2024-03-30] MEDS: mupirocin oint 22 gm 1 APPLIC NASAL (17:23)
[2024-03-30] MEDS: calcium carb-vit d 600mg/400unit 1 Tablet 1 EACH PO (17:23)
--- NOTE | 2024-03-30 18:13 | NMCV_ITS ---
NM andra perf SPECT r/s* [id number] Obed Turner Age: 84 Gender: M : 1940 Exam Date: 03/30/2024 18:13 Ordering Phys: Isaias Salazar MD Technologist: KUMAR Paulson Exam Location: [facility] Indications: cp STRESS TEST [facility] IMAGE PROTOCOL Rest/Stress 1 Lexiscan Day Radiopharmaceutical Dose (mCi) Administration Site Administered by Rest: Tc-99m 10.8 IV KUMAR Paulson Sestamibi Stress:Tc-99m 33 IV KUMAR Ford Sestamibi Rest: 30-Mar-2024 60 Discovery 630 Stress: 30-Mar-2024 30 Discovery 630 0.4mg Lexiscan. Supine position only as patient was unable to lay prone. SPECT RESULTS Technical Quality: Good Raw Data Analysis: Normal Image Corrections: No attenuation or motion correction applied Summed Stress Score: 3 Summed Rest Score: 3 Summed Difference Score: 0 PERFUSION FINDINGS A small area of minimal to moderately decreased tracer uptake involving the apical inferior and apical lateral segments. No significant reversibility was noted in this region. FUNCTIONAL RESULTS (calculated via Gated SPECT) Stress Image LV EF (%): 66 Stress EDV (mL):70 TID: 0.72 Stress ESV (mL):24 FUNCTIONAL FINDINGS: segmental wall motion analysis revealing no gross wall motion abnormalities IMPRESSIONS 1. Myocardial perfusion imaging revealing small area of persistent decreased tracer uptake involving the apical inferior and apical lateral segments suggesting myocardial scarring versus attenuation artifact 2. Normal LV ejection fraction of 66%. 3. LV wall motion analysis revealing no gross wall motion abnormalities. 4. Normal LV volume Low probability for coronary ischemia, based on the above findings Dr Segundo Clemente MD [facility] (Electronically Signed) Final Date: 30 March 2024 09:12 S
[2024-03-30] MEDS: ceFAZolin 2,000 MG in sodium chloride 0.9% (plus) 50 ML 100 MG IV (21:17)
[2024-03-30] MEDS: oxyCODONE 5 mg IR Tab/Cap 10 MG PO (21:18)
[2024-03-30] MEDS: zolpidem 5 mg Tablet PO (21:19)
[2024-03-30] MEDS: heparin 5,000 unit/mL INJ 1 mL 5000 UNIT SUBCUT (21:19)
[2024-03-31] VITALS (11 sets, daily range): BP systolic 95–184; BP diastolic 65–87; PULSE 57–80; RESP 16–18; TEMP 36.4–36.8; O2SAT 97–98
[2024-03-31] MEDS: oxyCODONE 5 mg IR Tab/Cap 10 MG PO ×2 (03:56→08:04)
[2024-03-31] MEDS: ceFAZolin 2,000 MG in sodium chloride 0.9% (plus) 50 ML 100 MG IV ×2 (03:56→12:05)
[2024-03-31] MEDS: efferdent effervescent 1 EACH DENTAL (03:57)
[2024-03-31 05:54] LABS: Basophils % 0.2 %; Hematocrit 30.5 % (37-53); Lymphocytes # 1.2 10^3/uL (0.8-4.8); Lymphocytes % 10.7 %; Mean Corpuscular HGB Conc 32.1 g/dL (30-55); Mean Corpuscular Hemoglobin 28.5 pg (27-33); Mean Corpuscular Volume 88.7 fl (82-101); Mean Platelet Volume 9.4 fL (7.4-10.4); Monocytes # 0.9 10^3/uL (0.2-0.9); Monocytes % 7.9 %; Neutrophils # 9.28 10^3/uL (1.8-7.7); Neutrophils % 80.9 %; Nucleated Red Blood Cells % 0 %; Platelet Count 156 10^3/cmm (157-399); Red Blood Count 3.44 10^6/uL (3.85-5.65); Red Cell Distribution Width 13.6 % (12.1-15.1); White Blood Count 11.47 10^3/uL (3.29-11.43)
[2024-03-31 06:19] LABS: Alanine Aminotransferase 7 U/L (0-41); Alkaline Phosphatase 74 U/L (40-130); Anion Gap 12.7 (5-19); Aspartate Amino Transferase 15 U/L (0-40); Blood Urea Nitrogen 22 mg/dL (8-23); Calcium 8.1 mg/dL (8.5-10.5); Carbon Dioxide 22 mmol/L (22-29); Chloride 108 mmol/L (98-107); Creatinine Clr Calc Pharmacy 36.9058; Globulin 2.1 g/dL (1.3-4.6); Glucose 126 mg/dL (65-115); Osmolality Calculated 291 mOsm/kg (285-295); Potassium 4.7 mmol/L (3.5-5.1); Sodium 138 mmol/L (136-145); Total Bilirubin 0.3 mg/dL (0.15-1.2); Total Protein 5.1 g/dL (6.6-8.7)
[2024-03-31] MEDS: carvedilol 3.125 mg Tablet PO ×2 (08:03→16:41)
[2024-03-31] MEDS: docusate sodium 100 mg Capsule PO ×2 (08:03→16:41)
[2024-03-31] MEDS: ALPRAZolam 0.5 mg Tablet 1 MG PO ×3 (08:03→20:21)
[2024-03-31] MEDS: multivitamin therapeutic Tablet 1 TAB PO (08:03)
[2024-03-31] MEDS: atorvastatin 40 mg Tablet PO (08:04)
[2024-03-31] MEDS: finasteride 5 mg Tablet PO (08:05)
[2024-03-31] MEDS: calcium carb-vit d 600mg/400unit 1 Tablet 1 EACH PO ×2 (08:05→16:41)
[2024-03-31] MEDS: famotidine 20 mg Tablet PO ×2 (08:05→16:40)
[2024-03-31] MEDS: iron polysaccharide complex 150 mg Capsule PO ×2 (08:05→16:41)
[2024-03-31] MEDS: amlodipine 5 mg Tablet PO (08:06)
[2024-03-31] MEDS: heparin 5,000 unit/mL INJ 1 mL 5000 UNIT SUBCUT ×2 (08:09→20:25)
[2024-03-31] MEDS: chlorhexidine gluconate 0.12% Btl 473 mL 30 ML MUCOUS MEM ×4 (09:56→20:25)
[2024-03-31] MEDS: mupirocin oint 22 gm 1 APPLIC NASAL ×2 (09:56→17:46)
--- NOTE | 2024-03-31 10:01 | PC.SOCIAL ---
IMM Update pg 2 of IMM Updated and reviewed w/ patient. Copy provided and copy dated, initialed and placed in chart.
[2024-03-31] MEDS: acetaminophen 325 mg Tablet 650 MG PO (12:04)
--- NOTE | 2024-03-31 14:52 | P.PN_ITS ---
Subjective 2 Subjective: Patient underwent ORIF yesterday. Tolerated the procedure well. Seen with family at bedside. Working with physical therapy but fairly weak. Denies any nausea, vomiting, headache. Vitals/I&O/Wt Last Vital Signs Temp 97.9 F 03/31/24 11:35 Pulse 80 03/31/24 11:35 Resp 18 03/31/24 11:35 BP 119/69 03/31/24 11:35 Pulse Ox 98 03/31/24 11:35 O2 Del Method Room Air 03/31/24 11:35 03/30/24 03/31/24 03/31/24 22:59 06:59 14:59 Intake Total 170 / 427.5 50 / 477.5 770 / 770 Output Total 1549 / 1974 Balance -1380 / -1547.5 0 / -1547.5 770 / 770 Weight last 48 hrs Weight 81.76 kg Weight 79.107 kg Weight 75.296 kg Physical Exam 2 Narrative: General: No acute distress, AO x 3 HEENT: PERRLA, pupils bilaterally equal and reactive Chest: Normal vesicular breath sounds, no added sounds, equal good air entry bilaterally CVS: S1-S2 regular, no murmurs, no tachycardia, no gallops, no rubs Abdomen: Soft, nontender, no organomegaly, bowel sounds present Neuro: No focal deficits, no facial deformity, AO x3, Data 03/31/24 05:17 03/31/24 05:17 A&P Assessment and plan (1) Closed intertrochanteric fracture of right hip: Orthopedics has been consulted. Plan for ORIF. Patient underwent cardiac angiogram which has been reported nonischemic. Appreciate echocardiogram. Patient has been cleared medically and from cardiac standpoint to undergo ORIF. PT/OT, perioperative antibiotics, anticoagulation as per surgical team. Will monitor hemoglobin. (2) Fall: Recurrent falls. Concerns for unstable angina. Stress test reported nonischemic. Catheter Doppler pending. (3) HTN (hypertension): Goal blood pressure less than 140/90 mmHg with mean over 65. History of dizziness for which he had been coming off of antihypertensive recently. For now continue with home dose of carvedilol and amlodipine. Will uptitrate medication as her goal blood pressures. Qualifiers: Hypertension type: essential hypertension Qualified Code(s): I10 - Essential (primary) hypertension (4) S/P CABG (coronary artery bypass graft): Follows up with Dr. Clemente as an outpatient. Last seen on 03/16. There was concern for unstable angina for which Lexiscan stress test was ordered. Continue with home dose of statin, beta-shreya. Lexiscan stress test shows persistent decreased uptake in apical inferior and apical lateral segments suggesting myocardial scarring. No concern for active ischemia. Echocardiogram shows grade 1 diastolic dysfunction, EF of 52% with PASP of 37 mmHg. (5) Hx pulmonary embolism: In the past. Not on any treatment currently. Has not had any further symptoms concerning for PE. Early ambulation. (6) History of CHF (congestive heart failure): Last echocardiogram from 2020 showed an EF of 50 to 55% with grade 1 diastolic dysfunction without regional wall motion normality. Repeat echocardiogram as above. Plan Febrile episode: 1 episode of fever. Has been afebrile for over 24 hours. Viral panel negative. No leukocytosis, UA on admission negative for concerns for UTI. For now as patient is perioperative will start on IV ceftriaxone prophylactically 1 g daily. Continue other chronic home medications including Xanax, finasteride, oxycodone. Full code Cardiac diet Famotidine for OPD prophylaxis Heparin 5000 Q12 hourly for DVT prophylaxis Plan for the day: Continue to work with physical therapy. Monitor hemoglobin. Patient has been afebrile. Monitor blood pressures. Goal blood pressure less than 140/90 mmHg with mean over 65. For now continue with home dose of Coreg and amlodipine. If needed will uptitrate the antihypertensive. Blood pressure is slightly elevated early in the morning today. No active chest pain. Appreciate echocardiogram and stress test results. Attestations 2 Medical Necessity Statement*: Requires further hospitalization for post-ORIF care biopsy of discharge planning is sought in an elderly with history of CABG with episode of dizziness Diagnoses Closed intertrochanteric fracture of right hip S72.141A Fall W19.XXXA Essential hypertension I10 Hypertension type: essential hypertension S/P CABG (coronary artery bypass graft) Z95.1 Hx pulmonary embolism Z86.711 History of CHF (congestive heart failure) Z86.79
--- NOTE | 2024-03-31 16:31 | P.PN_ITS ---
Subjective 2 Subjective: Patient underwent hip surgery. He had uneventful postprocedure course. No chest pain or palpitations. Medications: Medication Review Details: Current Medications Acetaminophen (Acetaminophen 325 Mg Tablet) 650 mg PO Q6H PRN PRN Reason: Mild/Mod Pain Or Temp >/= 101 Last Admin: 03/31/24 12:04 Dose: 650 mg Alprazolam (Alprazolam 0.5 Mg Tablet) 1 mg PO QID PRN PRN Reason: Anxiety Last Admin: 03/31/24 12:13 Dose: 1 mg Amlodipine Besylate (Amlodipine 5 Mg Tablet) 5 mg PO DAILY [facility] Last Admin: 03/31/24 08:06 Dose: 5 mg Atorvastatin Calcium (Atorvastatin 40 Mg Tablet) 40 mg PO DAILY [facility] Last Admin: 03/31/24 08:04 Dose: 40 mg Bisacodyl (Bisacodyl 5 Mg Tablet) 10 mg PO DAILY PRN; Protocol PRN Reason: Constipation (see protocol) Calcium Carbonate (Calcium Carb-Vit D 600mg/400unit 1 Tablet) 1 each PO BID [facility] Last Admin: 03/31/24 08:05 Dose: 1 each Carvedilol (Carvedilol 3.125 Mg Tablet) 3.125 mg PO BID [facility] Last Admin: 03/31/24 08:03 Dose: 3.125 mg Chlorhexidine Gluconate (Chlorhexidine Gluconate 0.12% Btl 473 Ml) 30 ml MUCOUS MEM QID [facility] Last Admin: 03/31/24 12:02 Dose: 30 ml Denture Adhesive (Efferdent Effervescent) 1 each DENTAL DAILY PRN PRN Reason: odor Last Admin: 03/31/24 03:57 Dose: 1 each Docusate Sodium (Docusate Sodium 100 Mg Capsule) 100 mg PO BID [facility] Last Admin: 03/31/24 08:03 Dose: 100 mg Famotidine (Famotidine 20 Mg Tablet) 20 mg PO BID [facility] Last Admin: 03/31/24 08:05 Dose: 20 mg Finasteride (Finasteride 5 Mg Tablet) 5 mg PO DAILY [facility] Last Admin: 03/31/24 08:05 Dose: 5 mg Heparin Sodium (Porcine) (Heparin 5,000 Unit/Ml Inj 1 Ml) 5,000 unit SUBCUT Q12H [facility] Last Admin: 03/31/24 08:09 Dose: 5,000 unit Lactulose (Lactulose Oral Liq 20 Gm/30 Ml Udc) 10 gm PO DAILY PRN; Protocol PRN Reason: Constipation (see protocol) Magnesium Hydroxide (Magnesium Hydroxide 30 Ml Udc) 30 ml PO DAILY PRN; Protocol PRN Reason: Constipation (see protocol) Morphine Sulfate (Morphine 4 Mg/Ml Sdv 1 Ml) 2 mg IVP Q4H PRN PRN Reason: SEVERE PAIN Last Admin: 03/29/24 21:46 Dose: 2 mg Multivitamins Therapeutic (Multivitamin Therapeutic Tablet) 1 tab PO DAILY [facility] Last Admin: 03/31/24 08:03 Dose: 1 tab Mupirocin (Mupirocin Oint 22 Gm) 1 applic NASAL BID [facility]; Protocol Stop: 04/04/24 17:59 Last Admin: 03/31/24 09:56 Dose: 1 applic Naloxone HCl (Naloxone 0.4 Mg/Ml Sdv) 0.1 mg IVP Q2M PRN PRN Reason: Respiratory rate less than 8. Ondansetron HCl (Ondansetron 2 Mg/Ml Sdv 2 Ml) 4 mg IVP Q6H PRN PRN Reason: NAUSEA AND VOMITING Oxycodone HCl (Oxycodone 5 Mg Ir Tab/Cap) 10 mg PO Q4H PRN PRN Reason: Pain Last Admin: 03/31/24 08:04 Dose: 10 mg Polysaccharide Iron Complex (Iron Polysaccharide Complex 150 Mg Capsule) 150 mg PO BIDWM [facility] Last Admin: 03/31/24 08:05 Dose: 150 mg Zolpidem Tartrate (Zolpidem 5 Mg Tablet) 5 mg PO BEDTIME [facility] Last Admin: 03/30/24 21:19 Dose: 5 mg Vitals/I&O/Wt Last Vital Signs Temp 97.8 F 03/31/24 15:44 Pulse 64 03/31/24 15:44 Resp 17 03/31/24 15:44 BP 156/87 03/31/24 15:44 Pulse Ox 97 03/31/24 15:44 O2 Del Method Room Air 03/31/24 15:44 03/31/24 03/31/24 03/31/24 06:59 14:59 22:59 Intake Total 50 / 477.5 1250 / 1250 Output Total 2024 Balance 0 / -1547.5 1250 / 1250 Weight last 48 hrs Weight 180 lb 4 oz Weight 174 lb 6.4 oz Physical Exam 2 Narrative: GENERAL: The patient is alert and oriented times three. Not in any acute distress. HEENT: No significant pallor, icterus or lymphadenopathy.Oral cavity: There are no mucous membrane lesions. NECK: Trachea appears to be central. No masses noted. No JVD or thyromegaly appreciated. RESPIRATORY: Chest is symmetrical. No intercostals muscle retraction or any accessory muscle activation. There is no chest wall tenderness. Breath sounds are heard bilaterally. No rales or rhonchi heard. No evidence of any consolidation. BREASTS: Deferred. HEART: The heart sounds are normal. No S3 or S4. Early systolic murmur the left sternal border. No diastolic murmurs. No pericardial rub ABDOMEN: No vessel pulsations or distention. No tenderness. No organomegaly appreciated. Bowel sounds are normally heard. : Deferred. RECTAL: Deferred. LYMPHATIC: No lymphadenopathy noted in the neck. EXTREMITIES: No edema or cyanosis. No clubbing. MUSCULOSKELETAL: No acute joint deformities or swelling SKIN: There are no significant rashes or ecchymosis NEUROPSYCHIATRIC: The patient is alert and oriented x3. Appears to be in a good mood. No tremors or rigidity noted. Data 03/31/24 05:17 03/31/24 05:17 Other Labs: Laboratory Last Values WBC 11.47 10^3/uL (3.29-11.43) H 03/31/24 05:17 RBC 3.44 10^6/uL (3.85-5.65) L 03/31/24 05:17 Hgb 9.80 g/dL (11.27-16.99) L 03/31/24 05:17 Hct 30.5 % (37-53) L 03/31/24 05:17 MCV 88.7 fl (82-101) 03/31/24 05:17 MCH 28.5 pg (27-33) 03/31/24 05:17 MCHC 32.1 g/dL (30-55) 03/31/24 05:17 RDW 13.6 % (12.1-15.1) 03/31/24 05:17 Plt Count 156 10^3/cmm (157-399) L 03/31/24 05:17 MPV 9.4 fL (7.4-10.4) 03/31/24 05:17 Neut % (Auto) 80.9 % 03/31/24 05:17 Lymph % (Auto) 10.7 % 03/31/24 05:17 Loving % (Auto) 7.9 % 03/31/24 05:17 Eos % (Auto) 0.0 % 03/31/24 05:17 Baso % (Auto) 0.2 % 03/31/24 05:17 Neut # (Auto) 9.28 10^3/uL (1.8-7.7) H 03/31/24 05:17 Lymph # (Auto) 1.2 10^3/uL (0.8-4.8) 03/31/24 05:17 Loving # (Auto) 0.9 10^3/uL (0.2-0.9) 03/31/24 05:17 Eos # (Auto) 0.0 10^3/uL (0.0-0.8) 03/31/24 05:17 Baso # (Auto) 0.0 10^3/uL (0.0-0.1) 03/31/24 05:17 Nucleated RBC % (auto) 0 % 03/31/24 05:17 Nucleated RBCs # 0.0 /100WBC 03/31/24 05:17 Sodium 138 mmol/L (136-145) 03/31/24 05:17 Potassium 4.7 mmol/L (3.5-5.1) 03/31/24 05:17 Chloride 108 mmol/L (98-107) H 03/31/24 05:17 Carbon Dioxide 22 mmol/L (22-29) 03/31/24 05:17 Anion Gap 12.7 (5-19) 03/31/24 05:17 BUN 22 mg/dL (8-23) 03/31/24 05:17 Creatinine 1.7 mg/dL (0.7-1.2) H 03/31/24 05:17 GFR Calculation Not Reportable 03/31/24 05:17 Glucose 126 mg/dL (65-115) H 03/31/24 05:17 Estimat Average Glucose 114 03/30/24 00:34 Hemoglobin A1c 5.6 % (4.0-6.0) 03/30/24 00:34 Calculated Osmolality 291 mOsm/kg (285-295) 03/31/24 05:17 Calcium 8.1 mg/dL (8.5-10.5) L 03/31/24 05:17 Phosphorus 3.3 mg/dL (2.5-4.5) 03/30/24 00:34 Magnesium 1.9 mg/dL (1.7-2.3) 03/30/24 00:34 Total Bilirubin 0.3 mg/dL (0.15-1.2) 03/31/24 05:17 AST 15 U/L (0-40) 03/31/24 05:17 ALT 7 U/L (0-41) 03/31/24 05:17 Alkaline Phosphatase 74 U/L (40-130) 03/31/24 05:17 Troponin T Baseline 17 ng/L (0-15) H 03/29/24 16:48 Troponin T 120 Minute 19.72 ng/L (0-15) H 03/29/24 19:03 Delta Troponin T 2.72 ABS# (0-10) 03/29/24 19:03 Troponin T Hi Sens 6Hr 20.27 ng/L (0-15) H 03/30/24 00:34 Troponin T Hi Sens 6Hr Delta 3.27 ng/L (0-12) 03/30/24 00:34 Total Protein 5.1 g/dL (6.6-8.7) L 03/31/24 05:17 Albumin 3.0 g/dL (3.5-5.2) L 03/31/24 05:17 Globulin 2.1 g/dL (1.3-4.6) 03/31/24 05:17 Triglycerides 46 mg/dL (0-150) 03/30/24 00:34 Cholesterol 107 mg/dL (0-200) 03/30/24 00:34 LDL Cholesterol, Calc 62 mg/dL (50-129) 03/30/24 00:34 HDL Cholesterol 36 mg/dL (60-100) L 03/30/24 00:34 LDL/HDL Ratio 1.72 RATIO (0.00-3.22) 03/30/24 00:34 Cholesterol/HDL Ratio 2.97 mg/dL (1.0-5.00) 03/30/24 00:34 Procalcitonin 0.05 ng/mL (0-0.5) 03/29/24 16:48 TSH 2.38 uIU/mL (0.27-4.20) 03/29/24 16:48 Urine Color Yellow (Yellow) 03/29/24 17:21 Urine Appearance Clear (CLEAR) 03/29/24 17:21 Urine pH 6.5 (5-7) 03/29/24 17:21 Ur Specific Ivel 1.009 (1.005-1.030) 03/29/24 17:21 Urine Protein Negative (Negative) 03/29/24 17:21 Urine Glucose (UA) Negative (Normal) 03/29/24 17:21 Urine Ketones Negative (Negative) 03/29/24 17:21 Urine Blood Negative (Negative) 03/29/24 17: Urine Nitrate Negative (Negative) 03/29/24 17:21 Urine Bilirubin Negative (Negative) 03/29/24 17:21 Urine Urobilinogen 1.0 mg/dL (Negative) 03/29/24 17:21 Ur Leukocyte Esterase Negative (Negative) 03/29/24 17:21 Urine RBC 0-2 /hpf (0-2) 03/29/24 17:21 Urine WBC 0-5 /hpf (0-5) 03/29/24 17:21 Ur Squamous Epith Cells 0-5 /hpf (0-5) 03/29/24 17:21 Amorphous Sediment Not Reportable 03/29/24 17:21 Urine Bacteria None seen /hpf (NONE) 03/29/24 17:21 Hyaline Casts 0-4 /lpf H 03/29/24 17:21 Adenovirus (PCR) Not detected (NOT DETECT) 03/30/24 10:43 C. pneumoniae DNA (PCR) Not detected (NOT DETECT) 03/30/24 10:43 Coronavirus 229E (PCR) Not detected (NOT DETECT) 03/30/24 10:43 Human Metapneumovir PCR Not detected (NOT DETECT) 03/30/24 10:43 Influenza A (H1) PCR Not detected (NOT DETECT) 03/30/24 10:43 Influ A (H1/09) PCR Not detected (NOT DETECT) 03/30/24 10:43 Influenza A (H3) PCR Not detected (NOT DETECT) 03/30/24 10:43 Influenza Type A (PCR) Not detected (NOT DETECT) 03/30/24 10:43 Influenza Type B (PCR) Not detected (NOT DETECT) 03/30/24 10:43 M. pneumoniae (PCR) Not detected (NOT DETECT) 03/30/24 10:43 Parainfluenza 1 (PCR) Not detected (NOT DETECT) 03/30/24 10:43 Parainfluenza 2 (PCR) Not detected (NOT DETECT) 03/30/24 10:43 Parainfluenza 3 (PCR) Not detected (NOT DETECT) 03/30/24 10:43 Parainfluenza 4 (PCR) Not detected (NOT DETECT) 03/30/24 10:43 RSV Type A (PCR) Not detected (NOT DETECT) 03/30/24 10:43 RSV Type B (PCR) Not detected (NOT DETECT) 03/30/24 10:43 Entero/Rhino (PCR) Not detected (NOT DETECT) 03/30/24 10:43 SARS-CoV-2 (PCR) Not detected (NOT DETECT) 03/30/24 10:43 Blood Type B Positive 03/29/24 00:34 Rho(D) Type Rh positive 03/29/24 00:34 Antibody Screen Negative 03/29/24 00:34 A&P Assessment and plan (1) S/P CABG (coronary artery bypass graft): This patient currently has no specific symptoms of coronary ischemia. The Myocardial perfusion imaging is unremarkable. At this point, he may continue on the current management. (2) Pulmonary embolism: Has not had a recurrence of pulmonary embolism in the recent past. Qualifiers: Pulmonary embolism type: unspecified Chronicity: chronic Acute cor pulmonale presence: without acute cor pulmonale Qualified Code(s): I27.82 - Chronic pulmonary embolism (3) CHF (congestive heart failure): Currently seems to be compensated. Qualifiers: Heart failure type: diastolic Heart failure chronicity: chronic Qualified Code(s): I50.32 - Chronic diastolic (congestive) heart failure Plan The other problems are Chronic kidney disease Mild anemia Anxiety/depressive illness The patient severe clinical status seems to be stable, from a cardiac standpoint.. He may be kept on the current medications. Attestations 2 Medical Necessity Statement*: Disposition, as per the primary Coding Level of Care Code Acute Code for [facility] Diagnoses S/P CABG (coronary artery bypass graft) Z95.1 Chronic pulmonary embolism without acute cor pulmonale, unspecified pulmonary embolism type I27.82 Pulmonary embolism type: unspecified Chronicity: chronic Acute cor pulmonale presence: without acute cor pulmonale Chronic diastolic congestive heart failure I50.32 Heart failure type: diastolic Heart failure chronicity: chronic
--- NOTE | 2024-03-31 18:47 | PM.PN ---
Subjective Subjective: Patient is an 84-year-old male that is 1 day postop right hip fracture ORIF. Patient says pain is controlled . He got up and walked with therapy today. He has been able to keep food and fluids down. No acute events overnight. Vitals/I&O/Wt Last Vital Signs Temp 97.8 F 03/31/24 15:44 Pulse 64 03/31/24 15:44 Resp 17 03/31/24 15:44 BP 156/87 03/31/24 15:44 Pulse Ox 97 03/31/24 15:44 O2 Del Method Room Air 03/31/24 15:44 03/31/24 03/31/24 03/31/24 06:59 14:59 22:59 Intake Total 50 / 477.5 1250 / 1250 120 / 1370 Output Total 2024 200 / 200 Balance 0 / -1547.5 1250 / 1250 -80 / 1170 Weight last 48 hrs Weight 180 lb 4 oz Weight 174 lb 6.4 oz Physical Exam Narrative: Right lower extremity- negative log roll test. Surgical dressings are dry and intact. No significant hematoma seen. Soft and compressible. Patient can Wiggle toes. Toes are warm and well-perfused. Patient can perform dorsiflex and plantarflex the foot. Pedal pulse 2+. Const: COMMON NORMALS: no acute distress and alert Resp: COMMON NORMALS: normal respiratory effort and No retractions Cardio: COMMON NORMALS: Peripheral pulses 2+ throughout PERIPHERAL PULSES: Peripheral pulses 2+ throughout Neuro: SENSORIUM/ORIENTATION: Yes alert Skin: GENERAL SKIN EXAM: dry skin Data 03/31/24 05:17 03/31/24 05:17 Xray Ortho: Radiologist's impression: Patient: Obed Turner Unit #: [id number] : 1940 Age/Sex: 84 / M ADM Date: 03/29/24 Loc: [facility] Room/Bed: [facility] Attending Dr: Isaias Salazar MD Ordering Provider/Ordering MD: Britton Soliz Date of Service: 03/30/24 Procedure(s): XR hip RT 2-3V wo/w pel* [id number] Accession Number(s): [id number] Report Number: [id number] PROCEDURE INFORMATION: Exam: XR Right Hip Exam date and time: 03/30/2024 1:42 PM Age: 84 years old Clinical indication: Device placement; Other: R hip troch nail; Prior surgery; Surgery date: Post-operative (0-2 days); Additional info: R hip troch nail S/P TECHNIQUE: Imaging protocol: Radiologic exam of the right hip. Views: 1 view hip with pelvis when performed. COMPARISON: CR (PELVIS, ) 03/29/2024 4:24 PM FINDINGS: Bones/joints: ORIF of the proximal right femur. Intact hardware. Posterior fusion lower lumbar spine and sacrum. Mild degenerative changes of the hips. No lytic or sclerotic bone lesion. . No acute fracture. Soft tissues: Unremarkable. XR/XR hip RT 2-3V wo/w pel* [id number] IMPRESSION: ORIF of the proximal right femur. Dictated By: Davy Marie MD A&P Assessment and plan (1) Closed intertrochanteric fracture of right hip: Plan Plan: -Imaging and Labs reviewed -Hospitalist on board for medical management. -VTE prophylaxis -weightbearing on right leg as tolerated -Pain control -PT and OT We will continue following and we will reevaluate patient tomorrow. Attestations Medical Necessity Statement*: Ongoing care for right hip fracture Coding Level of Care Code Acute Code for [facility] Diagnoses Closed intertrochanteric fracture of right hip S72.141A
[2024-03-31] MEDS: zolpidem 5 mg Tablet PO (20:25)
[2024-04-01] VITALS (8 sets, daily range): BP systolic 153–185; BP diastolic 68–81; PULSE 64–83; RESP 16–20; TEMP 36.4–37.1; O2SAT 95–98
[2024-04-01] MEDS: efferdent effervescent 1 EACH DENTAL (00:05)
[2024-04-01] MEDS: oxyCODONE 5 mg IR Tab/Cap 10 MG PO ×2 (00:05→08:41)
[2024-04-01 06:15] LABS: Basophils % 0.3 %; Eosinophils # 0.2 10^3/uL (0.0-0.8); Eosinophils % 2.2 %; Hematocrit 32.9 % (37-53); Lymphocytes # 1.9 10^3/uL (0.8-4.8); Lymphocytes % 19.5 %; Mean Corpuscular HGB Conc 32.2 g/dL (30-55); Mean Corpuscular Hemoglobin 29.4 pg (27-33); Mean Corpuscular Volume 91.1 fl (82-101); Mean Platelet Volume 9.7 fL (7.4-10.4); Monocytes % 9.9 %; Neutrophils # 6.56 10^3/uL (1.8-7.7); Neutrophils % 67.8 %; Nucleated Red Blood Cells % 0 %; Platelet Count 184 10^3/cmm (157-399); Red Blood Count 3.61 10^6/uL (3.85-5.65); Red Cell Distribution Width 13.8 % (12.1-15.1); White Blood Count 9.68 10^3/uL (3.29-11.43)
[2024-04-01 06:40] LABS: Alanine Aminotransferase < 5 U/L (0-41); Albumin Level 3.4 g/dL (3.5-5.2); Alkaline Phosphatase 79 U/L (40-130); Anion Gap 12.8 (5-19); Aspartate Amino Transferase 18 U/L (0-40); Blood Urea Nitrogen 25 mg/dL (8-23); Calcium 8.8 mg/dL (8.5-10.5); Carbon Dioxide 26 mmol/L (22-29); Chloride 102 mmol/L (98-107); Creatinine Clr Calc Pharmacy 38.4016; Globulin 2.6 g/dL (1.3-4.6); Glucose 87 mg/dL (65-115); Osmolality Calculated 288 mOsm/kg (285-295); Potassium 3.8 mmol/L (3.5-5.1); Sodium 137 mmol/L (136-145); Total Bilirubin 0.4 mg/dL (0.15-1.2)
[2024-04-01] MEDS: finasteride 5 mg Tablet PO (08:40)
[2024-04-01] MEDS: famotidine 20 mg Tablet PO (08:40)
[2024-04-01] MEDS: calcium carb-vit d 600mg/400unit 1 Tablet 1 EACH PO (08:40)
[2024-04-01] MEDS: multivitamin therapeutic Tablet 1 TAB PO (08:40)
[2024-04-01] MEDS: iron polysaccharide complex 150 mg Capsule PO (08:40)
[2024-04-01] MEDS: docusate sodium 100 mg Capsule PO (08:40)
[2024-04-01] MEDS: atorvastatin 40 mg Tablet PO (08:40)
[2024-04-01] MEDS: amlodipine 5 mg Tablet PO (08:41)
[2024-04-01] MEDS: chlorhexidine gluconate 0.12% Btl 473 mL 30 ML MUCOUS MEM (08:41)
[2024-04-01] MEDS: carvedilol 3.125 mg Tablet PO (08:41)
[2024-04-01] MEDS: mupirocin oint 22 gm 1 APPLIC NASAL (08:41)
--- NOTE | 2024-04-01 08:53 | P.DS_ITS ---
Discharge Providers Date of Admission: 03/29/24 19:53 Date of Discharge: April 01, 2024 Attending Provider at Admission: Isaias Salazar MD Attending Provider at Discharge: Isaias Salazar MD Consults: Cardiology: Dr. Clemente Podiatry: Dr. Soliz Primary Care Provider: Ganesh Albarado MD Diagnoses at Discharge Discharge Diagnosis (1) Closed intertrochanteric fracture of right hip: Status: Acute Reason for Visit Reason for Visit: rt hip pain, fall Hospital Course Hospital Course Obed Turner Sr is a 84 year old male with past medical history of CABG, pulmonary embolism, diastolic heart failure with recent episodes of dizziness for which he had followed up with cardiology on 03/16 and was requested for a Lexiscan stress test presents to the ER today after falling from a standing position after which he started having right hip pain and was found to have intertrochanteric right hip fracture. As per the patient he has been having frequent falls with at least 2 falls per week recently because of dizziness. Today morning patient states he was walking back from the bathroom and his knees buckled down and he fell. Prior to fall he did not have any dizziness, chest pain or difficulty in breathing. Patient has been having sharp chest pain on and off for last few weeks along with difficulty in breathing usually associated with exertion. Examination laying down in the ER with daughter at bedside complaining of extreme pain requesting more pain medications. Patient was admitted to the hospital for evaluation and management of ORIF. Given his significant cardiac history with recurrent symptoms cardiology was consulted for cardiac clearance and he underwent echocardiogram and Lexiscan stress test which was negative for acute ischemia with a normal stable EF. He underwent ORIF on 03/30 which he tolerated well. Patient has been working well with physical therapy. Positive discharge planning he has been discharged to SNF for further rehabilitation. He is to take Eliquis 2.5 mg twice daily for anticoagulation follow-up DVT prevention Physical Exam Narrative: General: No acute distress, AO x 3 HEENT: PERRLA, pupils bilaterally equal and reactive Chest: Normal vesicular breath sounds, no added sounds, equal good air entry bilaterally CVS: S1-S2 regular, no murmurs, no tachycardia, no gallops, no rubs Abdomen: Soft, nontender, no organomegaly, bowel sounds present Neuro: No focal deficits, no facial deformity, AO x3, Discharge Data Studies Completed and Pending Completed Studies During Hospitalization Category Date Time Status Sestamibi Stress Test Request Routine Exams 03/29/24 18:13 Draft XR chest 1V portable [id number] Stat Exams 03/29/24 16:35 Completed XR femur RT min 2V* [id number] Stat Exams 03/29/24 16:35 Completed XR hip RT 2-3V wo/w pel* [id number] Routine Exams 03/30/24 13:23 Completed XR hip RT 2-3V wo/w pel* [id number] Stat Exams 03/29/24 16:19 Completed NM andra perf SPECT r/s* [id number] Routine Nuc Med 03/30/24 18:13 Completed CV. echo complete* [id number] Routine Ultrasound 03/29/24 18:13 Completed Pending at discharge Category Date Time Status COVID [SARS Covid-2 Antigen] Routine Lab 04/01/24 06:00 Uncollected Complete Blood Count w/Auto AM LABS Lab 04/02/24 04:00 Ordered Radiology Impressions Chest X-Ray 03/29/24 16:35 IMPRESSION: No acute findings. Femur X-Ray 03/29/24 16:35 IMPRESSION: Acute intertrochanteric fracture of the right femur Hip/Pelvis X-Ray 03/30/24 13:23 IMPRESSION: ORIF of the proximal right femur. Echocardiogram: CONCLUSIONS Mild diffuse hypokinesis of the septum with an LV ejection fraction of 52%. Grade I/IV diastolic dysfunction (abnormal relaxation filling pattern), normal to mildly elevated filling pressures. Trace of aortic, mitral and pulmonary rotation. Trace to mild tricuspid regurgitation. Estimated pulmonary artery peak systolic pressure 37 mmHg. There is no pericardial effusion. There are no intracardiac masses. Dr Segundo Clemente MD [facility] (Electronically Signed) Final Date: 30 March 2024 Lexiscan Stress Test: PERFUSION FINDINGS A small area of minimal to moderately decreased tracer uptake involving the apical inferior and apical lateral segments. No significant reversibility was noted in this region. FUNCTIONAL RESULTS (calculated via Gated SPECT) Stress Image LV EF (%): 66 Stress EDV (mL):70 TID: 0.72 Stress ESV (mL):24 FUNCTIONAL FINDINGS: segmental wall motion analysis revealing no gross wall motion abnormalities IMPRESSIONS 1. Myocardial perfusion imaging revealing small area of persistent decreased tracer uptake involving the apical inferior and apical lateral segments suggesting myocardial scarring versus attenuation artifact 2. Normal LV ejection fraction of 66%. 3. LV wall motion analysis revealing no gross wall motion abnormalities. 4. Normal LV volume Low probability for coronary ischemia, based on the above findings Dr Segundo Clemente MD [facility] (Electronically Signed) Final Date: 30 March 2024 Laboratory Results WBC 9.68 10^3/uL (3.29-11.43) 04/01/24 05:07 RBC 3.61 10^6/uL (3.85-5.65) L 04/01/24 05:07 Hgb 10.60 g/dL (11.27-16.99) L 04/01/24 05:07 Hct 32.9 % (37-53) L 04/01/24 05:07 MCV 91.1 fl (82-101) 04/01/24 05:07 MCH 29.4 pg (27-33) 04/01/24 05:07 MCHC 32.2 g/dL (30-55) 04/01/24 05:07 RDW 13.8 % (12.1-15.1) 04/01/24 05:07 Plt Count 184 10^3/cmm (157-399) 04/01/24 05:07 MPV 9.7 fL (7.4-10.4) 04/01/24 05:07 Neut % (Auto) 67.8 % 04/01/24 05:07 Lymph % (Auto) 19.5 % 04/01/24 05:07 [place] % (Auto) 9.9 % 04/01/24 05:07 Eos % (Auto) 2.2 % 04/01/24 05:07 Baso % (Auto) 0.3 % 04/01/24 05:07 Neut # (Auto) 6.56 10^3/uL (1.8-7.7) 04/01/24 05:07 Lymph # (Auto) 1.9 10^3/uL (0.8-4.8) 04/01/24 05:07 [place] # (Auto) 1.0 10^3/uL (0.2-0.9) H 04/01/24 05:07 Eos # (Auto) 0.2 10^3/uL (0.0-0.8) 04/01/24 05:07 Baso # (Auto) 0.0 10^3/uL (0.0-0.1) 04/01/24 05:07 Nucleated RBC % (auto) 0 % 04/01/24 05:07 Nucleated RBCs # 0.0 /100WBC 04/01/24 05:07 Sodium 137 mmol/L (136-145) 04/01/24 05:07 Potassium 3.8 mmol/L (3.5-5.1) 04/01/24 05:07 Chloride 102 mmol/L (98-107) 04/01/24 05:07 Carbon Dioxide 26 mmol/L (22-29) 04/01/24 05:07 Anion Gap 12.8 (5-19) 04/01/24 05:07 BUN 25 mg/dL (8-23) H 04/01/24 05:07 Creatinine 1.6 mg/dL (0.7-1.2) H 04/01/24 05:07 GFR Calculation Not Reportable 04/01/24 05:07 Glucose 87 mg/dL (65-115) 04/01/24 05:07 Estimat Average Glucose 114 03/30/24 00:34 Hemoglobin A1c 5.6 % (4.0-6.0) 03/30/24 00:34 Calculated Osmolality 288 mOsm/kg (285-295) 04/01/24 05:07 Calcium 8.8 mg/dL (8.5-10.5) 04/01/24 05:07 Phosphorus 3.3 mg/dL (2.5-4.5) 03/30/24 00:34 Magnesium 1.9 mg/dL (1.7-2.3) 03/30/24 00:34 Total Bilirubin 0.4 mg/dL (0.15-1.2) 04/01/24 05:07 AST 18 U/L (0-40) 04/01/24 05:07 ALT < 5 U/L (0-41) 04/01/24 05:07 Alkaline Phosphatase 79 U/L (40-130) 04/01/24 05:07 Troponin T Baseline 17 ng/L (0-15) H 03/29/24 16:48 Troponin T 120 Minute 19.72 ng/L (0-15) H 03/29/24 19:03 Delta Troponin T 2.72 ABS# (0-10) 03/29/24 19:03 Troponin T Hi Sens 6Hr 20.27 ng/L (0-15) H 03/30/24 00:34 Troponin T Hi Sens 6Hr Delta 3.27 ng/L (0-12) 03/30/24 00:34 Total Protein 6.0 g/dL (6.6-8.7) L 04/01/24 05:07 Albumin 3.4 g/dL (3.5-5.2) L 04/01/24 05:07 Globulin 2.6 g/dL (1.3-4.6) 04/01/24 05:07 Triglycerides 46 mg/dL (0-150) 03/30/24 00:34 Cholesterol 107 mg/dL (0-200) 03/30/24 00:34 LDL Cholesterol, Calc 62 mg/dL (50-129) 03/30/24 00:34 HDL Cholesterol 36 mg/dL (60-100) L 03/30/24 00:34 LDL/HDL Ratio 1.72 RATIO (0.00-3.22) 03/30/24 00:34 Cholesterol/HDL Ratio 2.97 mg/dL (1.0-5.00) 03/30/24 00:34 Procalcitonin 0.05 ng/mL (0-0.5) 03/29/24 16:48 TSH 2.38 uIU/mL (0.27-4.20) 03/29/24 16:48 Urine Color Yellow (Yellow) 03/29/24 17:21 Urine Appearance Clear (CLEAR) 03/29/24 17:21 Urine pH 6.5 (5-7) 03/29/24 17:21 Ur Specific [place] 1.009 (1.005-1.030) 03/29/24 17:21 Urine Protein Negative (Negative) 03/29/24 17:21 Urine Glucose (UA) Negative (Normal) 03/29/24 17:21 Urine Ketones Negative (Negative) 03/29/24 17:21 Urine Blood Negative (Negative) 03/29/24 17:21 Urine Nitrate Negative (Negative) 03/29/24 17:21 Urine Bilirubin Negative (Negative) 03/29/24 17:21 Urine Urobilinogen 1.0 mg/dL (Negative) 03/29/24 17:21 Ur Leukocyte Esterase Negative (Negative) 03/29/24 17:21 Urine RBC 0-2 /hpf (0-2) 03/29/24 17:21 Urine WBC 0-5 /hpf (0-5) 03/29/24 17:21 Ur Squamous Epith Cells 0-5 /hpf (0-5) 03/29/24 17:21 Amorphous Sediment Not Reportable 03/29/24 17:21 Urine Bacteria None seen /hpf (NONE) 03/29/24 17:21 Hyaline Casts 0-4 /lpf H 03/29/24 17:21 Adenovirus (PCR) Not detected (NOT DETECT) 03/30/24 10:43 C. pneumoniae DNA (PCR) Not detected (NOT DETECT) 03/30/24 10:43 Coronavirus 229E (PCR) Not detected (NOT DETECT) 03/30/24 10:43 Human Metapneumovir PCR Not detected (NOT DETECT) 03/30/24 10:43 Influenza A (H1) PCR Not detected (NOT DETECT) 03/30/24 10:43 Influ A (H1/09) PCR Not detected (NOT DETECT) 03/30/24 10:43 Influenza A (H3) PCR Not detected (NOT DETECT) 03/30/24 10:43 Influenza Type A (PCR) Not detected (NOT DETECT) 03/30/24 10:43 Influenza Type B (PCR) Not detected (NOT DETECT) 03/30/24 10:43 M. pneumoniae (PCR) Not detected (NOT DETECT) 03/30/24 10:43 Parainfluenza 1 (PCR) Not detected (NOT DETECT) 03/30/24 10:43 Parainfluenza 2 (PCR) Not detected (NOT DETECT) 03/30/24 10:43 Parainfluenza 3 (PCR) Not detected (NOT DETECT) 03/30/24 10:43 Parainfluenza 4 (PCR) Not detected (NOT DETECT) 03/30/24 10:43 RSV Type A (PCR) Not detected (NOT DETECT) 03/30/24 10:43 RSV Type B (PCR) Not detected (NOT DETECT) 03/30/24 10:43 Entero/Rhino (PCR) Not detected (NOT DETECT) 03/30/24 10:43 SARS-CoV-2 (PCR) Not detected (NOT DETECT) 03/30/24 10:43 Blood Type B Positive 03/29/24 00:34 Rho(D) Type Rh positive 03/29/24 00:34 Antibody Screen Negative 03/29/24 00:34 Vitals Last Vital Signs Temp 98.2 F 04/01/24 07:48 Pulse 66 04/01/24 07:48 Resp 16 04/01/24 08:41 BP 155/74 04/01/24 07:48 Pulse Ox 97 04/01/24 07:48 O2 Del Method Room Air 04/01/24 07:48 Discharge Plan Discharge Patient Disposition: Xfer SNF Condition: Stable Prescriptions: New polysaccharide iron complex [Ferrex 150] 150 mg iron Capsule 150 mg PO BIDWM Qty: 60 0RF Eliquis 2.5 mg tablet 2.5 mg PO BID Qty: 60 0RF Continued atorvastatin 40 mg tablet 40 mg PO DAILY finasteride 5 mg tablet 5 mg PO DAILY omeprazole 20 mg capsule,delayed release(DR/EC) 20 mg PO DAILY (DME) Lumbar Corset Brace See Rx Instructions .Route .MEDSUPPLY Qty: 1 0RF Rx Instructions: As directed (DME) Rolling Walker with Seat See Rx Instructions .Route .MEDSUPPLY Qty: 1 0RF Rx Instructions: As directed (DME) Rolling Walker See Rx Instructions .Route .MEDSUPPLY Qty: 1 0RF Rx Instructions: As directed zolpidem 5 mg tablet 5 mg PO BEDTIME (DME) DME: Bed rail See Rx Instructions .Route .MEDSUPPLY Qty: 1 0RF Rx Instructions: As directed (DME) DME: Wedge Pillow See Rx Instructions .Route .MEDSUPPLY Qty: 1 0RF Rx Instructions: As directed alprazolam 1 mg tablet 1 mg PO QID PRN (Reason: Anxiety) tamsulosin 0.4 mg capsule 0.4 mg PO BID zolpidem 10 mg tablet 10 mg PO DAILY carvedilol 3.125 mg tablet 3.125 mg PO BID nitroglycerin 0.4 mg tablet, sublingual See Rx Instructions .ROUTE .COMPLEX Rx Instructions: PLACE 1 TABLET UNDER TONGUE EVERY 5 MINS, UP TO 3 DOSES NEEDED FOR CHEST PAIN lactulose 10 gram/15 mL solution 15 ml PO DAILY PRN (Reason: Constipation) oxycodone 10 mg Tablet 10 mg PO Q4H PRN (Reason: Pain) Rx Instructions: MAX 4 PER DAY Changed amlodipine 5 mg tablet 10 mg PO DAILY Qty: 90 3RF Dose Instruction: TAKE 1 TABLET BY MOUTH EVERY DAY Discharge Orders: Discharge Order (Routine); Ordered 04/01/24 Ordered By: Isaias Salazar Referrals: [facility] [Outside] Ganesh Albarado MD [Primary Care Provider] - Britton Soliz DO [Physician] - 04/15/24 10:30 am () Discharge Diet: Cardiac Discharge Activity: Resume usual activity and Increase activity as tolerated Patient Instructions: Apixaban (By mouth), Acute Wound Care (DC), Opioid Safety, Post Anesthesia Care Discharge Attestations Time Spent in Discharge Care*: greater than 30 min Specific Discharge Activities: educating patient, discussing with pcp/other providers, discussing with mental health case manager/social workers/dc planners, documenting/other paperwork and evaluating patient/reviewing data Status at Discharge: Cognitive status at discharge: cognitively intact , Behavioral status at discharge: cooperative , Functional status at discharge: uses cane/walker , Overall status at discharge: patient is back to baseline Quality Metrics Clinical Quality Measures [ No reported AMI, CVA or VTE this stay] Coding Level of Care Code 70978 Total time (in minutes) for Discharge: 60 Diagnoses Closed intertrochanteric fracture of right hip S72.141A
[2024-04-01] MEDS: heparin 5,000 unit/mL INJ 1 mL 5000 UNIT SUBCUT (10:33)
[2024-04-01 10:52] LABS: SARS Covid-2 Antigen Negative (Negative)
--- NOTE | 2024-04-01 10:59 | PC.NURSE ---
This nurse called report to Nurse Rooney at [facility]. All questions addressed at this time. Patient is awaiting [facility].
--- NOTE | 2024-04-01 12:39 | PM.PN ---
Vitals/I&O/Wt Last Vital Signs Temp 97.6 F 04/01/24 11:08 Pulse 83 04/01/24 11:08 Resp 17 04/01/24 11:08 BP 153/68 04/01/24 11:08 Pulse Ox 97 04/01/24 11:08 O2 Del Method Room Air 04/01/24 11:08 03/31/24 04/01/24 04/01/24 22:59 06:59 14:59 Intake Total 270 / 1520 600 / 600 Output Total 200 / 200 1650 / 1850 800 / 800 Balance 70 / 1320 -1650 / -330 -200 / -200 Weight last 48 hrs Weight 171 lb 6 oz Weight 180 lb 4 oz Data 04/01/24 05:07 04/01/24 05:07 Coding Level of Care Code Acute Code for Chg Fwd
== END 2024-04-01 13:30 | disposition skilled nursing facility (03) | DRG 481 ==
LOC: ER 16:49 → MEDSURG 19:55
PROVIDERS: Student in an Organized Health Care Education/Training Program; Admitting Provider Student in an Organized Health Care Education/Training Program; Emergency Provider Family Medicine; PCP Family Medicine; Visit Provider Student in an Organized Health Care Education/Training Program
PROC: 0QS606Z Reposition Right Upper Femur with Intramedullary Internal Fixation Device, Open Approach (ICD-10-PCS; CPT 27245; principal; 2024-03-30 12:00)
DX: S72.141A Displaced intertrochanteric fracture of right femur, initial encounter for closed fracture (principal); I13.0 Hypertensive heart and chronic kidney disease with heart failure and stage 1 through stage 4 chronic kidney disease, or unspecified chronic kidney disease; I50.32 Chronic diastolic (congestive) heart failure; W19.XXXA Unspecified fall, initial encounter; N18.9 Chronic kidney disease, unspecified; K21.9 Gastro-esophageal reflux disease without esophagitis; I25.10 Atherosclerotic heart disease of native coronary artery without angina pectoris; E78.5 Hyperlipidemia, unspecified; N40.0 Benign prostatic hyperplasia without lower urinary tract symptoms; F41.9 Anxiety disorder, unspecified; F32.A Depression, unspecified; D64.9 Anemia, unspecified; Z95.1 Presence of aortocoronary bypass graft; Z91.81 History of falling; Z87.891 Personal history of nicotine dependence; Z86.711 Personal history of pulmonary embolism
CPT/HCPCS: 36415; 71045; 73502; 73552; 76000; 78452; 80053; 80061; 81001; 83036; 83735; 84100; 84145; 84443; 84484; 85025; 86850; 86900; 87426; 87486; 87581; 87633; 93005; 93017; 93306; 94664; 96372; 96374; 96375; 97110; 97116; 97161; 97166; 97535; 99285; A9500; C1713; J0131; J0690; J0696; J1100; J1170; J1644; J1885; J2270; J2405; J2704; J2785; J3010; J7030

== ENCOUNTER → 2024-04-15 10:36 | Outpatient (BNVA) | payer MEDICARE, OTHER, SELFPAY | PROVIDERS: PCP Family Medicine; Visit Provider Physician Assistant | DX: S72.141D Displaced intertrochanteric fracture of right femur, subsequent encounter for closed fracture with routine healing (principal); X58.XXXD Exposure to other specified factors, subsequent encounter; Z98.890 Other specified postprocedural states | CPT/HCPCS: 73502; 99024 ==

== ENCOUNTER → 2024-06-03 09:49 | Outpatient (BNVA) | payer MEDICARE, OTHER, SELFPAY | PROVIDERS: Visit Provider Physician Assistant | DX: Z98.890 Other specified postprocedural states (principal); S72.141D Displaced intertrochanteric fracture of right femur, subsequent encounter for closed fracture with routine healing; X58.XXXD Exposure to other specified factors, subsequent encounter | CPT/HCPCS: 73502; 99024 ==

== ENCOUNTER → 2024-07-06 13:48 | Outpatient (BNVA) | payer MEDICARE, OTHER, SELFPAY | PROVIDERS: Visit Provider Physician Assistant | DX: M17.11 Unilateral primary osteoarthritis, right knee | CPT/HCPCS: 20610; 73560; 73565; 99213; J3301 ==

== ENCOUNTER → 2024-09-29 15:52 | Outpatient (BNVA) | payer MEDICARE, OTHER, SELFPAY | PROVIDERS: PCP Family Medicine; Visit Provider Internal Medicine Cardiovascular Disease | DX: I13.0 Hypertensive heart and chronic kidney disease with heart failure and stage 1 through stage 4 chronic kidney disease, or unspecified chronic kidney disease (principal); N18.9 Chronic kidney disease, unspecified; I50.33 Acute on chronic diastolic (congestive) heart failure; I95.1 Orthostatic hypotension; Z86.711 Personal history of pulmonary embolism; Z79.01 Long term (current) use of anticoagulants; Z87.891 Personal history of nicotine dependence; Z95.1 Presence of aortocoronary bypass graft | CPT/HCPCS: 36415; 80048; 83880; 99214 ==

== ENCOUNTER → 2024-10-05 14:00 | Outpatient (BNVA) | payer MEDICARE, OTHER, SELFPAY | PROVIDERS: PCP Family Medicine; Visit Provider Physician Assistant | DX: Z98.890 Other specified postprocedural states (principal); Z87.81 Personal history of (healed) traumatic fracture; M17.11 Unilateral primary osteoarthritis, right knee | CPT/HCPCS: 73502; 99213 ==

== ENCOUNTER 2024-10-22 10:41 | Outpatient (CLI) | payer MEDICARE, OTHER, SELFPAY ==
[2024-10-22 12:00] LABS: Anion Gap 11.3 (5-19); Blood Urea Nitrogen 31 mg/dL (8-23); Calcium 9.5 mg/dL (8.5-10.5); Carbon Dioxide 28 mmol/L (22-29); Chloride 107 mmol/L (98-107); Glucose 79 mg/dL (65-115); NT Pro B Type Natriuretic Pept 2701 pg/mL (0-450); Osmolality Calculated 299 mOsm/kg (285-295); Potassium 4.3 mmol/L (3.5-5.1); Sodium 142 mmol/L (136-145)
== END 2024-10-22 10:42 | disposition home or self-care (01) ==
PROVIDERS: PCP Family Medicine; Visit Provider Internal Medicine Cardiovascular Disease
DX: R06.02 Shortness of breath (principal)
CPT/HCPCS: 80048; 83880

== ENCOUNTER 2025-01-24 11:52 | Outpatient (CLI) | payer MEDICARE, OTHER, SELFPAY ==
--- NOTE | 2025-01-24 11:57 | USCV_ITS ---
Yue Obed Age: 85 Gender: M : 1940 Exam Date: 01/24/2025 12:30 Ordering Phys: Rony Lange DO Technologist: R [place] [facility] [place]: [place] Risk Factors: Previous Vascular Surgery: Right Brachial BP: / Left Brachial BP: / Right Left Velocity (cm/s) Spectral Plaque Velocity (cm/s) Spectral Plaque Syst/Diast Broadening Syst/Diast Broadening 62.10/ 7.60 Prox CCA 67.30 / 10.40 68.50/ 11.50 Mid CCA 70.30 / 15.40 64.50/ 10.20 Distal CCA 72.80 / 14.10 85.70/ 15.90 Prox ICA 98.30 / 27.50 89.60/ 17.40 Mid ICA 79.20 / 14.60 54.20/ 12.40 Distal ICA 96.30 / 18.80 116.20 ECA 82.80 1.40 ICA/CCA 1.40 Antegrade Vertebral Antegrade 47.20/ 8.70 cm/s 46.60/ 11.50 cm/s Tri Subclavian Tri 65.00 114.9 0 CONCLUSIONS Right ICA stenosis <50%. Moderate atheromatous plaque right carotid bulb/ICA. Left ICA stenosis <50%. Moderate atheromatous plaque left carotid bulb/ICA. Normal antegrade Doppler flow noted in the right vertebral artery. Normal antegrade Doppler flow noted in the left vertebral artery. Alexx Brennan MD (Electronically Signed) Final Date: 24 January 2025 14:57 S
== END 2025-01-24 11:53 | disposition home or self-care (01) ==
LOC: RAD 11:53
PROVIDERS: PCP Family Medicine; Visit Provider Electrodiagnostic Medicine
DX: I65.23 Occlusion and stenosis of bilateral carotid arteries (principal); R55 Syncope and collapse
CPT/HCPCS: 93880

== ENCOUNTER → 2025-02-28 15:46 | Outpatient (BNVA) | payer MEDICARE, OTHER, SELFPAY | PROVIDERS: PCP Family Medicine; Visit Provider Internal Medicine Cardiovascular Disease | DX: I13.0 Hypertensive heart and chronic kidney disease with heart failure and stage 1 through stage 4 chronic kidney disease, or unspecified chronic kidney disease (principal); N18.9 Chronic kidney disease, unspecified; I50.9 Heart failure, unspecified; I49.9 Cardiac arrhythmia, unspecified; I95.1 Orthostatic hypotension; Z95.1 Presence of aortocoronary bypass graft; Z86.711 Personal history of pulmonary embolism; Z79.01 Long term (current) use of anticoagulants; Z87.891 Personal history of nicotine dependence; R07.9 Chest pain, unspecified | CPT/HCPCS: 93005; 99214 ==